=== PATIENT | male | born 1950 | race Caucasian/White ===

== ENCOUNTER 2020-03-14 16:54 | Outpatient (REF) | payer MEDICARE, SELFPAY | END 2020-03-14 16:55 | disposition home or self-care (01) | LOC: HO.LNP 16:54 | PROVIDERS: Visit Provider Hospitalist | DX: Z20.828 Contact with and (suspected) exposure to other viral communicable diseases (principal) | CPT/HCPCS: 87635 ==

== ENCOUNTER 2020-03-22 07:38 | Outpatient (REF) | payer MEDICARE, SELFPAY ==
[2020-03-22 07:57] LABS: Basophils Percent Auto 0.2 % (0-2); Eosinophils Absolute Auto 0.1 X10*3/uL (0.0-0.4); Eosinophils Percent Auto 1.9 % (0-4); Hematocrit 39.7 % (42-52); Imm Gran Abs Auto 0.02 X10*3/uL (0.00-0.03); Imm Gran Pct Auto 0.4 % (0.0-0.4); Lymphocytes Absolute Auto 0.6 X10*3/uL (1.2-4.9); Lymphocytes Percent Auto 11.8 % (20-40); MANUAL DIFF FLAG SCAN; Mean Corpuscular HGB Conc 32.7 g/dl (31.0-36.0); Mean Corpuscular Hemoglobin 30.3 pg (27.0-33.0); Mean Corpuscular Volume 92.5 fL (80-98); Mean Platelet Volume 9.2 fL (9.4-12.4); Monocytes Absolute Auto 0.8 X10*3/uL (0.1-1.2); Monocytes Percent Auto 15.1 % (2-11); Neutrophils Absolute Auto 3.6 X10*3/uL (2.0-8.3); Neutrophils Percent Auto 70.6 % (45-73); Platelet Count 167 X10*3/uL (160-400); Red Blood Count 4.29 X10*6/uL (4.60-5.80); Red Cell Distribution Width 12.1 % (11.0-16.0); SCAN SMEAR FLAG 1; White Blood Count 5.2 X10*3/uL (4.8-10.8)
--- NOTE | 2020-03-22 08:01 | MR_ITS ---
EXAMINATION: MR BRAIN WITHOUT AND WITH CONTRAST CLINICAL INFORMATION: Follow-up pituitary macroadenoma. COMPARISON: MRI brain 02/05/2019 and 02/12/2018. TECHNIQUE: Multiplanar, multisequence MRI of the brain was obtained before and after the intravenous administration of 4 mL Gadavist. FINDINGS: Normal. Again visualized is a nonenhancing hypoenhancing lesion in right sella measuring 1.3 cm wide, 1.4 cm in AP and 1 cm in height, consistent with macroadenoma. There is no extension of this into the suprasellar cistern. However, it abuts the right cavernous sinus and in close approximation to the intrasinus carotid artery. The pituitary stalk is minimally shifted to the left on the coronal view. There is no mass effect on the optic chiasm or the optic nerve. There is no restricted diffusion seen to suspect an acute ischemia. Scattered T2 signal changes are seen within the deep white matter of both cerebral hemispheres, similar to previous study, without enhancement or mass effect. There is no midline shift. The lateral ventricles are symmetrical in size and configuration without enlargement. There is no suggestion of hemorrhage on gradient echo acquisition sequence. Normal flow void signal is seen in major cerebral vasculature. The posterior fossa structures are unremarkable and unchanged to previous study. The craniovertebral axis and the cerebral hemispheres are normal. The bone marrow signal of the calvarium is unremarkable. The soft tissues are normal. The paranasal sinuses are well expanded and are clear. Minimal T2 signal seen in bilateral mastoid sinuses. Incidental finding of a Tornwaldt cyst is noted along the roof of the nasopharynx. Also visualized is a small 1.0 x 0.5 cm T2 lesion within the lateral pharyngeal recess/fossa of Rosenmuller. 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 No encroachment on the optic chiasm nor the optic nerve. Minimal pituitary stalk shift seen to the left side on the coronal image. Small Tornwaldt cyst is stable since 02/12/2018 and 02/05/2019. 1 cm lesion in the left nasopharyngeal lateral recess is stable since 02/12/2018 and 02/05/2019 MRI brain.
[2020-03-22 08:19] LABS: Iron 121 mcg/dL (45-160); Percent Iron Saturation 35 % (15-50); Total Iron Binding Capacity 347 mcg/dL (228-428); Unsaturated Iron Binding 226 ug/dL
[2020-03-22 08:21] LABS: SLIDE REVIEW VERIFIED
[2020-03-22 08:39] LABS: Blood Urea Nitrogen 16 mg/dL (9-16); Estimated Glomerular Filt Rate > 60
[2020-03-22 08:42] LABS: Ferritin 80 ng/mL (20-250)
== END 2020-03-22 07:39 | disposition home or self-care (01) ==
LOC: HO.MRI 07:38
PROVIDERS: Internal Medicine; PCP Nurse Practitioner Family; Visit Provider Internal Medicine Endocrinology, Diabetes & Metabolism
DX: D35.2 Benign neoplasm of pituitary gland (principal)
CPT/HCPCS: 36415; 70553; 82565; 82728; 83540; 84520; 85025; A9585

== ENCOUNTER 2020-03-29 10:24 | Outpatient (REF) | payer MEDICARE, SELFPAY | END 2020-03-29 10:25 | disposition home or self-care (01) | LOC: HO.LAB 10:24 | PROVIDERS: Visit Provider Nurse Practitioner Family | DX: Z20.828 Contact with and (suspected) exposure to other viral communicable diseases (principal) | CPT/HCPCS: U0003 ==

== ENCOUNTER 2020-03-30 07:55 | Outpatient (REF) | payer MEDICARE, SELFPAY ==
[2020-03-31 07:42] LABS: Prolactin 5.8 ng/mL (2.0-18.0)
== END 2020-03-30 07:56 | disposition home or self-care (01) ==
LOC: CF 07:55
PROVIDERS: Absent Provider Nurse Practitioner Family; PCP Nurse Practitioner Family; Visit Provider Internal Medicine Endocrinology, Diabetes & Metabolism
DX: D35.2 Benign neoplasm of pituitary gland (principal); M85.80 Other specified disorders of bone density and structure, unspecified site
CPT/HCPCS: 84146; 99212

== ENCOUNTER 2020-06-18 10:11 | Outpatient (REF) | payer MEDICARE, SELFPAY ==
[2020-06-18 10:28] LABS: MANUAL DIFF FLAG NO
[2020-06-18 10:30] LABS: Basophils Percent Auto 0.4 % (0-2); Eosinophils Absolute Auto 0.2 X10*3/uL (0.0-0.4); Eosinophils Percent Auto 3.2 % (0-4); Hematocrit 42.2 % (42-52); Hemoglobin 13.9 g/dl (14.0-18.0); Imm Gran Abs Auto 0.02 X10*3/uL (0.00-0.03); Imm Gran Pct Auto 0.4 % (0.0-0.4); Lymphocytes Absolute Auto 1.4 X10*3/uL (1.2-4.9); Lymphocytes Percent Auto 24.5 % (20-40); Mean Corpuscular HGB Conc 32.9 g/dl (31.0-36.0); Mean Corpuscular Hemoglobin 30.5 pg (27.0-33.0); Mean Corpuscular Volume 92.5 fL (80-98); Mean Platelet Volume 9.6 fL (9.4-12.4); Monocytes Absolute Auto 0.5 X10*3/uL (0.1-1.2); Monocytes Percent Auto 8.1 % (2-11); Neutrophils Absolute Auto 3.6 X10*3/uL (2.0-8.3); Neutrophils Percent Auto 63.4 % (45-73); Platelet Count 205 X10*3/uL (160-400); Red Blood Count 4.56 X10*6/uL (4.60-5.80); Red Cell Distribution Width 11.8 % (11.0-16.0); White Blood Count 5.6 X10*3/uL (4.8-10.8)
[2020-06-18 10:48] LABS: Prothrombin Time 11.8 SEC (10.8-13.0)
[2020-06-18 10:53] LABS: Alanine Aminotransferase 14 U/L (0-40); Albumin Level 4.7 g/dL (3.5-5.0); Alkaline Phosphatase 40 U/L (39-117); Anion Gap 14 (12-20); Aspartate Amino Transferase 18 U/L (5-37); Bilirubin Total 1.6 mg/dL (0.0-1.0); Blood Urea Nitrogen 18 mg/dL (9-16); Calcium 9.1 mg/dL (8.4-10.2); Carbon Dioxide 28 mmol/L (22-29); Chloride 104 mmol/L (96-108); Estimated Glomerular Filt Rate > 60; Glucose Fasting 99 mg/dL (60-99); Potassium 4.7 mmol/L (3.3-5.1); Sodium 141 mmol/L (135-145); Total Protein 7.1 g/dL (6.5-8.0)
== END 2020-06-18 10:12 | disposition home or self-care (01) ==
LOC: HO.LAB 10:11
PROVIDERS: Visit Provider Nurse Practitioner Family
DX: Z01.818 Encounter for other preprocedural examination (principal)
CPT/HCPCS: 36415; 80053; 85025; 85610

== ENCOUNTER 2020-06-22 13:13 | Outpatient (REF) | payer MEDICARE, SELFPAY ==
[2020-06-22 14:53] LABS: Bilirubin Direct 0.4 mg/dL (0.0-0.5); Bilirubin Total 1.4 mg/dL (0.0-1.0)
== END 2020-06-22 13:14 | disposition home or self-care (01) ==
LOC: HO.HMGCLDS 13:13
PROVIDERS: PCP Nurse Practitioner Family; Visit Provider Nurse Practitioner Family
DX: R17 Unspecified jaundice (principal)
CPT/HCPCS: 36415; 82247; 82248

== ENCOUNTER 2020-06-28 12:57 | Outpatient (REF) | payer MEDICARE, SELFPAY ==
--- NOTE | ~2020-06-28 | US_ITS ---
EXAMINATION: US ABDOMEN COMPLETE CLINICAL INFORMATION: Unspecified jaundice. COMPARISON: Ultrasound abdomen complete dated 09/25/2016. CT abdomen and pelvis with and without contrast dated 09/07/2014. TECHNIQUE: Real-time imaging of the abdominal viscera. FINDINGS: PANCREAS: Not well visualized due to bowel gas ABDOMINAL AORTA: The proximal, mid, and distal segments are normal in caliber. INFERIOR VENA CAVA: Visualized portions are normal. LIVER: Liver echotexture is slightly increased and heterogeneous. There are multiple hypoechoic areas seen throughout the liver. Some are seen in areas typical of focal fatty sparing such as adjacent to the gallbladder and the periportal region. Other areas are atypical for fatty sparing and focal liver lesion should be excluded. Largest area measures approximately 11 mm in the right lobe for example image 53. There is no intrahepatic biliary duct dilatation. The liver is normal in size and contour. GALLBLADDER: Normal. The gallbladder is physiologically distended without evidence of stones, sludge, polyps, wall thickening or pericholecystic fluid. COMMON BILE DUCT: Normal in caliber measuring 0.40 cm in diameter. RIGHT KIDNEY: There are several echogenic foci with twinkle artifact suggestive of small stones measuring 3 to 4 mm. No hydronephrosis or focal parenchymal lesions. The kidney measures 11.0 cm in maximum dimension. LEFT KIDNEY: Normal. No hydronephrosis. No renal calculi or focal parenchymal lesions. The kidney measures 11.1 cm in maximum dimension. SPLEEN: Normal. The spleen measures 12.2 cm in maximum dimension. FREE FLUID: None. US/US abdomen complete IMPRESSION: Slightly echogenic heterogeneous appearing liver. There are multiple small hypoechoic areas questionable for areas of focal fatty sparing versus liver lesions. Follow-up liver MRI with and without contrast recommended. Probable right renal stones. Nonvisualization of the pancreas.
== END 2020-06-28 12:58 | disposition home or self-care (01) ==
LOC: HO.HMGCX 12:57
PROVIDERS: PCP Nurse Practitioner Family; Visit Provider Nurse Practitioner Family
DX: R17 Unspecified jaundice (principal)
CPT/HCPCS: 76700

== ENCOUNTER 2020-07-07 13:14 | Outpatient (REF) | payer MEDICARE, SELFPAY ==
--- NOTE | ~2020-07-07 | MR_ITS ---
EXAMINATION: MR ABDOMEN WITHOUT AND WITH CONTRAST CLINICAL INFORMATION: Liver disease COMPARISON: Previous abdominal ultrasound most recent June [address] of the abdomen and pelvis August 2014 TECHNIQUE: MR abdomen was performed without and with use of 9 mL intravenous Gadavist gadolinium contrast. Postcontrast images are performed in multiphase dynamic sequences. Imaging was performed in 3 planes. FINDINGS: LUNG BASES: The visualized lung bases are unremarkable. LIVER, GALLBLADDER, AND BILIARY TREE: The liver is normal in size, shape and contour. There is mild fatty infiltration of the liver. There are numerous small areas of early arterial phase enhancement seen. The largest area measures 5 x 7 mm high in the right lobe axial image 32 series 100 post contrast. These are seen on early arterial phase sequences only. These are not seen on later sequences post contrast and are not identified on precontrast sequences. Probable represent transient perfusion effects. No other focal liver lesion is seen. The gallbladder is normal-appearing. There are no gallstones. There is no intra or extrahepatic biliary duct dilatation. PANCREAS: Unremarkable. SPLEEN: Normal. ADRENAL GLANDS: Normal. KIDNEYS AND URETERS: The kidneys are normal in size, shape, and enhance symmetrically. There are small bilateral bright on T2-weighted sequence this lesions in the lower pole of the kidneys probably representing a small cyst. No hydronephrosis. No perinephric stranding. GASTROINTESTINAL TRACT: No bowel obstruction. No ascites or fluid collection. ABDOMINAL WALL: No significant hernia is appreciated. LYMPH NODES: No lymphadenopathy. VASCULAR: Unremarkable. OSSEOUS STRUCTURES: There is degenerative disc signal at L2-L3. Marrow signal otherwise normal. There is scoliosis and degenerative change of the spine. MR/MR abdomen wo/w con IMPRESSION: Mild fatty infiltration of the liver. Numerous small areas of early arterial phase enhancement not appreciated on later phases post contrast or on precontrast sequences suggestive of transient perfusion effects. No liver mass seen.
== END 2020-07-07 13:15 | disposition home or self-care (01) ==
LOC: HO.MRI 13:14
PROVIDERS: Visit Provider Nurse Practitioner Family
DX: K76.9 Liver disease, unspecified (principal)
CPT/HCPCS: 74183; A9585

== ENCOUNTER 2020-08-19 10:11 | Outpatient (REF) | payer MEDICARE, SELFPAY ==
--- NOTE | ~2020-08-19 | XR_ITS ---
EXAMINATION: XR KNEE, RIGHT CLINICAL INFORMATION: Right knee pain. COMPARISON: None TECHNIQUE: Four views of the right knee. FINDINGS: No significant tricompartmental degenerative joint changes are seen. There is no acute fracture or dislocation. There is a trace joint effusion. Mild prepatellar soft tissue swelling is seen. XR/XR knee RT 4V IMPRESSION: No significant tricompartmental degenerative joint changes. Trace suprapatellar joint effusion and mild prepatellar soft tissue swelling. Correlate with physical exam.
== END 2020-08-19 10:12 | disposition home or self-care (01) ==
LOC: HO.HMGCX 10:11
PROVIDERS: PCP Nurse Practitioner Family; Visit Provider Hospitalist
DX: M25.561 Pain in right knee (principal)
CPT/HCPCS: 73564

== ENCOUNTER → 2020-09-02 10:47 | Outpatient (BNVA) | payer MEDICARE, SELFPAY | PROVIDERS: PCP Nurse Practitioner Family; Visit Provider Orthopaedic Surgery | DX: S83.241A Other tear of medial meniscus, current injury, right knee, initial encounter (principal) | CPT/HCPCS: 99202 ==

== ENCOUNTER 2020-09-08 10:15 | Outpatient (REF) | payer MEDICARE, SELFPAY ==
--- NOTE | ~2020-09-08 | MR_ITS ---
EXAMINATION: MR KNEE WITHOUT CONTRAST, RIGHT CLINICAL INFORMATION: Right knee pain COMPARISON: Radiographs 08/19/2020 TECHNIQUE: MRI of the knee without contrast was performed using routine sequences on a high-field scanner. FINDINGS: MENISCI: Medial Meniscus: There is an inner margin radial tear which is near full-thickness at the junction of the posterior horn and body. A portion of the meniscal body periphery is displaced into the meniscotibial recess on coronal images 20-21. Lateral Meniscus: Intact LIGAMENTS: Cruciate: Intact Collateral: Intact EXTENSOR MECHANISM: Intact. Pretibial bursitis. Adjacent soft tissue edema. ARTICULAR CARTILAGE/BONE: Patellofemoral Compartment: Normal Medial Compartment: Mild cartilage thinning of the peripheral weightbearing aspect. Lateral Compartment: Normal JOINT FLUID AND BURSAE: Small joint effusion. There is a small amount of free fluid tracking along the popliteus muscle. A small ganglion projects into the deep medial gastrocnemius muscle. MR/MR knee RT wo con IMPRESSION: Inner margin radial tear of the medial meniscus at the junction of the body and posterior horn. Prepatellar bursitis. Minimal medial compartment osteoarthritis with a small joint effusion.
== END 2020-09-08 10:16 | disposition home or self-care (01) ==
LOC: HO.MRI 10:15
PROVIDERS: Visit Provider Orthopaedic Surgery
DX: S83.241A Other tear of medial meniscus, current injury, right knee, initial encounter (principal)
CPT/HCPCS: 73721

== ENCOUNTER → 2020-09-20 08:23 | Outpatient (BNVA) | payer MEDICARE, SELFPAY | PROVIDERS: PCP Nurse Practitioner Family; Visit Provider Orthopaedic Surgery | DX: S83.241A Other tear of medial meniscus, current injury, right knee, initial encounter (principal) | CPT/HCPCS: 99212 ==

== ENCOUNTER 2020-09-29 05:57 | Day surgery (SDC) | payer MEDICARE, SELFPAY ==
--- NOTE | 2020-09-27 10:20 | P.CONAN_ITS ---
HPI - Anesthesia Eval Consult details Narrative: 69yo M for Right Knee Arthroscopy PMFSH Active Problems Active Problems: All Active Problems (Updated 09/02/20 @ 11:35 by Zachary Marroquin MD) Tear of medial meniscus of right knee (Acute) Right knee pain (Acute) Liver lesion (Acute) Elevated bilirubin (Acute) Pre-op evaluation (Acute) Osteopenia (Acute) Macroprolactinoma (Acute) Nasal congestion (Acute) Encounter for screening laboratory testing for COVID-19 virus (Acute) Iron deficiency anemia (Acute) Prolactinoma (Acute) Past Medical History Medical History History of pituitary tumor Iron deficiency anemia Macroprolactinoma Osteopenia Prolactinoma Family History Family History Father Cancer Mother Diabetes Surgical History Surgical History Hx of blepharoplasty Hx of cataract extraction Hx of eye surgery Hx of tonsillectomy Social History Social History Smoking Status: Never smoker Use of substances other than those prescribed or required for medical reasons: No Are you DNR?: No Advance Directives: No Advance Directives Information Provided: Yes Current occupational status: employed and retired 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 - [employer] Meds Allergies Allergy/AdvReac Type Severity Reaction Status Date / Time aspirin [ASPIRIN] Allergy Unknown HIVES,HEARTBURN, Verified 09/29/20 06:04 hives, hives meperidine [Demerol] Allergy Unknown GI upset Verified 09/29/20 06:04 Home Medications Medication Instructions Recorded Confirmed Last Taken Type ferrous sulfate 324 mg (65 mg 324 mg PO BID 03/14/20 08/19/20 Unknown History iron) tablet,delayed release Exam Exam Date and Time: September 27, 2020 1020 Pertinent Lab Results Pertinent Lab Results: Laboratory Tests 06/18/20 06/18/20 10:20 10:20 WBC 5.6 Hgb 13.9 L Hct 42.2 Plt Count 205 Sodium 141 Potassium 4.7 Chloride 104 Carbon Dioxide 28 BUN 18 H Creatinine 1.04 Narrative Narrative: EKG 05/2020 NSR@68 Assessment and Plan Assessment Anesthesia Assessment: Chart Reviewed
[2020-09-29] VITALS (7 sets, daily range): BP systolic 134–161; BP diastolic 69–95; PULSE 51–59; RESP 10–16; TEMP 36.3–36.5; O2SAT 97–99; BMI 27.1
[2020-09-29] MEDS: Lactated Ringers 1,000 ML 100 ML IVCONT (06:25)
--- NOTE | 2020-09-29 06:55 | PC.NURSE ---
PT WITH SCABBING OVER AREA ON RIGHT KNEE. MD MADE AWARE AND OK TO PROCEED WITH ABX BEING ADDED PREOP.
--- NOTE | 2020-09-29 07:10 | P.CONAN_ITS ---
[facility] Active Problems Active Problems: All Active Problems (Updated 09/29/20 @ 06:04 by Maria L wells, RN) Encounter for screening laboratory testing for COVID-19 virus (Acute) Nasal congestion (Acute) Pre-op evaluation (Acute) Elevated bilirubin (Acute) Liver lesion (Acute) Right knee pain (Acute) Tear of medial meniscus of right knee (Acute) Osteopenia (Acute) Macroprolactinoma (Acute) Prolactinoma (Acute) Past Medical History Medical History History of pituitary tumor Iron deficiency anemia Macroprolactinoma Osteopenia Prolactinoma Family History Family History Father Cancer Mother Diabetes Surgical History Surgical History Hx of blepharoplasty Hx of cataract extraction Hx of eye surgery Hx of tonsillectomy Social History Social History Smoking Status: Never smoker Use of substances other than those prescribed or required for medical reasons: No Are you DNR?: No Advance Directives: No Advance Directives Information Provided: Yes Current occupational status: employed and retired 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 - [employer] Meds Allergies Allergy/AdvReac Type Severity Reaction Status Date / Time aspirin [ASPIRIN] Allergy Unknown HIVES,HEARTBURN, Verified 09/29/20 06:04 hives, hives meperidine [Demerol] Allergy Unknown GI upset Verified 09/29/20 06:04 Active Medications: Current Medications Generic Name Dose Route Start Last Admin Trade Name Freq PRN Reason Stop Dose Admin Lactated Ringer's 1,000 mls @ 100 mls/hr 09/29/20 06:00 09/29/20 06:25 Lr IVCONT 100 mls/hr .Q10H JEAN CLAUDE Administration Home Medications Medication Instructions Recorded Confirmed Last Taken Type ferrous sulfate 324 mg (65 mg 324 mg PO BID 03/14/20 08/19/20 Unknown History iron) tablet,delayed release Exam Exam Date and Time: September 29, 2020 0710 Height,Weight and Vital Signs: Height 5 ft 11 in Weight 88.451 kg Last Vital Signs Temp 97.7 F 09/29/20 06:13 Pulse 51 09/29/20 06:13 Resp 16 09/29/20 06:13 BP 134/69 09/29/20 06:13 Pulse Ox 98 09/29/20 06:13 Airway Mallampati Class: II TM Dist: >3cm Neck ROM: Full Heart: RRR Lungs: CTA
--- NOTE | 2020-09-29 07:56 | MHC.SHP ---
Pre-Procedural Eval Section A The patient is an INPATIENT: No Changes since office visit: No Cold of Flu in the past 2 weeks, No New Medical Problems, No Changes in Medication and No Patient answered all questions The History & Physical has been completed within 30 days and I have reviewed it.: Yes Section B Chief Complaint: tear medial meniscus Allergies: Allergies Allergy/AdvReac Type Severity Reaction Status Date / Time aspirin [ASPIRIN] Allergy Unknown HIVES,HEARTBURN, Verified 09/29/20 06:04 hives, hives meperidine [Demerol] Allergy Unknown GI upset Verified 09/29/20 06:04 Plan I have reviewed the history and physical and performed a pertinent physical examination on my patient. No changes have occurred unless specified.
--- NOTE | 2020-09-29 07:57 | MHC.SHP ---
Pre-Procedural Eval Section A The patient is an INPATIENT: No The History & Physical has been completed within 30 days and I have reviewed it.: Yes Section B Chief Complaint: tear medial meniscus Allergies: Allergies Allergy/AdvReac Type Severity Reaction Status Date / Time aspirin [ASPIRIN] Allergy Unknown HIVES,HEARTBURN, Verified 09/29/20 06:04 hives, hives meperidine [Demerol] Allergy Unknown GI upset Verified 09/29/20 06:04 Plan I have reviewed the history and physical and performed a pertinent physical examination on my patient. No changes have occurred unless specified.
[2020-09-29] MEDS: oxyCODONE HCl Immed Release 5 MG TABLET 10 MG PO (09:15)
[2020-09-29] MEDS: Acetaminophen 325 MG TABLET 650 MG PO (09:15)
--- NOTE | 2020-09-29 12:39 | W.PM.OPN ---
Operative Note Operative Note Date of Service: 09/29/20 Narrative: ARTHROSCOPIC SURGERY NOTE SURGEON: Dr Zachary Orourke) [employer]: Edith CURRAN PREOP DIAGNOSIS: Medial meniscal tear right knee POSTOP DIAGNOSIS: Same with chondral injury patella right OPERATIVE PROCEDURE: Arthroscopic partial medial meniscectomy. Debridement patella right knee CLINICAL NOTE: This gentleman had ongoing problems pain discomfort involving his knee he had failed management therefore after explaining risks benefits and alternatives and answering all his questions it was mutually agreed upon to carry out following procedure MOTION: Full range of motion STABILITY: Cruciate and collateral ligaments intact OPERATIVE DETAILS PREPARATION: GA, STANDARD TECHNIQUE, tourniquet E to 300 mm of mercury for 20 minutes SURGICAL TIME-OUT: Patient identified; procedure confirmed; site confirmed. Medical and allergy history reviewed. No preoperative antibiotics. No DVT prophylaxis. All other items discussed and agreed upon. INCISIONS: Superolateral, inferolateral, inferomedial stab incisions SYNOVIUM: Normal SYNOVIAL FLUID: Clear MEDIAL COMPARTMENT: There was a radial tear of the posterior horn. This resected using a combination of handheld cutters and power shaver to stable meniscus that was contoured. The tibial and femoral articular surfaces were intact. INTERCONDYLAR NOTCH: ACL visualized palpated intact. PCL palpated intact LATERAL COMPARTMENT: The lateral meniscus, tibial and femoral articular surfaces, and popliteus tendon were all stable and intact ANTERIOR COMPARTMENT: . Medial and lateral gutters clear. Suprapatellar pouch clear. The patella had grade 3 injury through the midzone. This was debrided of loose articular cartilage. The femoral sulcus was intact. CLOSURE: 30 cc of 0.25% Marcaine with epinephrine injected in the knee. Steri-Strips and sterile dressing then applied. RECOMMENDATIONS: 1)Restore motion strength 2)Resume activities as tolerated 3)Discharge today with prescription for analgesic 4)Follow up in the office in 10-14 days
== END 2020-09-29 10:07 | disposition home or self-care (01) ==
PROVIDERS: PCP Nurse Practitioner Family; Visit Provider Orthopaedic Surgery
PROC: (CPT 29870; principal; 2020-09-29 07:30)
DX: S83.241A Other tear of medial meniscus, current injury, right knee, initial encounter (principal); M23.41 Loose body in knee, right knee; X58.XXXA Exposure to other specified factors, initial encounter; Y93.9 Activity, unspecified; Y92.9 Unspecified place or not applicable; Y99.8 Other external cause status; D50.9 Iron deficiency anemia, unspecified; M85.80 Other specified disorders of bone density and structure, unspecified site; Z79.899 Other long term (current) drug therapy; Z88.8 Allergy status to other drugs, medicaments and biological substances
CPT/HCPCS: 29881; J0171; J0690; J2250; J2405; J3010

== ENCOUNTER → 2020-10-11 08:50 | Outpatient (BNVA) | payer MEDICARE, SELFPAY | PROVIDERS: PCP Nurse Practitioner Family; Visit Provider Physician Assistant | DX: S83.241D Other tear of medial meniscus, current injury, right knee, subsequent encounter (principal) | CPT/HCPCS: 99212 ==

== ENCOUNTER 2020-11-07 08:59 | Outpatient (REF) | payer MEDICARE, SELFPAY ==
[2020-11-08 07:37] LABS: Prolactin 8.3 ng/mL (2.0-18.0)
== END 2020-11-07 09:00 | disposition home or self-care (01) ==
LOC: HO.HMGCLDS 08:59
PROVIDERS: PCP Nurse Practitioner Family; Visit Provider Internal Medicine Endocrinology, Diabetes & Metabolism
DX: D35.2 Benign neoplasm of pituitary gland (principal)
CPT/HCPCS: 36415; 84146

== ENCOUNTER → 2020-11-09 08:18 | Outpatient (BNVA) | payer MEDICARE, SELFPAY | PROVIDERS: PCP Nurse Practitioner Family; Visit Provider Internal Medicine Endocrinology, Diabetes & Metabolism | DX: D35.2 Benign neoplasm of pituitary gland (principal); M85.80 Other specified disorders of bone density and structure, unspecified site | CPT/HCPCS: 99212 ==

== ENCOUNTER 2020-12-19 17:09 | Outpatient (REF) | payer MEDICARE, SELFPAY | END 2020-12-19 17:10 | disposition home or self-care (01) | LOC: HO.LNP 17:09 | PROVIDERS: Visit Provider Hospitalist | DX: R31.9 Hematuria, unspecified (principal) | CPT/HCPCS: 87086 ==

== ENCOUNTER 2021-01-24 06:57 | Outpatient (REF) | payer MEDICARE, SELFPAY ==
--- NOTE | ~2021-01-24 | CT_ITS ---
EXAMINATION: CT ABDOMEN AND PELVIS WITHOUT AND WITH CONTRAST CLINICAL INFORMATION: Hematuria. COMPARISON: None. TECHNIQUE: Noncontrast CT of the abdomen and pelvis is performed followed by split bolus contrast-enhanced images using 85 mL Omnipaque 350 contrast.? Postcontrast imaging is performed during the combined nephrogram and excretion phase. Sagittal and coronal reformatted images were obtained on the technologist's workstation for both the precontrast and postcontrast phases. This CT examination was performed using dose optimization techniques as appropriate, variously including the following: *Automated exposure control *Adjustment of mA and/or kV according to patient size (this includes techniques or standardized protocols for targeted exams where dose is matched to indication/reason for exam; i.e. extremities or head) *Use of iterative reconstruction technique DLP: 787 mGy-cm. FINDINGS: LUNG BASES: The lung bases are clear. The heart size is normal. LIVER, GALLBLADDER, AND BILIARY TREE: The liver is normal in size, shape, and attenuation. No focal hepatic lesion or biliary ductal dilatation is present. The gallbladder is unremarkable with no evidence of radiopaque gallstones, gallbladder wall thickening, or obvious pericholecystic inflammatory changes. PANCREAS: Unremarkable. SPLEEN: Unremarkable. ADRENAL GLANDS: Unremarkable. KIDNEYS AND URETERS: On precontrast exam there is no radiopaque renal calculi post contrast. Both kidneys nephrograms are symmetrical, normal size and contour. There is symmetrical bilateral nephrograms with normal cortical thickening. Left kidney measures 11.7 cm in length and right kidney measures 10.9 cm in length. There is good opacification of bilateral kidney pelvis and ureters without any intraluminal filling defect. BLADDER: The bladder is incompletely distended with excreted urinary contrast. No bladder wall thickening or enhancing mass seen. GASTROINTESTINAL TRACT: There is scattered stool and gas seen throughout the colon without significant distention. The small bowel loops are normal caliber. The stomach is nondistended. No free air or free fluid seen. ABDOMINAL WALL: No significant hernia is appreciated. LYMPH NODES: Normal. VASCULAR: Unremarkable. PELVIC VISCERA: There is no free air or free fluid. The prostate gland is mildly enlarged with central gland calcification. OSSEUS STRUCTURES: There is levoscoliosis with degenerative disc changes at virtually every disc level and moderate spondylosis right L2-L3, left L4-L5 and L5/S1 disc levels. No lytic or sclerotic process seen. CT/CT urogram IMPRESSION: No radiopaque urolith or hydroureteronephrosis. No renal mass or cyst seen. No evidence of hydronephrosis. The bladder is decompressed but unremarkable. Degenerative disc changes with levoscoliosis dorsolumbar spine and moderate spondylosis.
[2021-01-24 08:37] LABS: Alanine Aminotransferase 15 U/L (0-40); Albumin Level 4.4 g/dL (3.5-5.0); Alkaline Phosphatase 49 U/L (39-117); Anion Gap 11 (12-20); Aspartate Amino Transferase 21 U/L (5-37); Bilirubin Total 1.2 mg/dL (0.0-1.0); Blood Urea Nitrogen 14 mg/dL (9-16); Calcium 9.4 mg/dL (8.4-10.2); Carbon Dioxide 27 mmol/L (22-29); Chloride 109 mmol/L (96-108); Estimated Glomerular Filt Rate > 60; Glucose Random 103 mg/dL (60-115); Potassium 4.7 mmol/L (3.3-5.1); Sodium 142 mmol/L (135-145); Total Protein 6.7 g/dL (6.5-8.0)
[2021-01-24] MEDS: iohexoL 350 MG/ML 100 ML INFUS..BTL IV (12:03)
== END 2021-01-24 06:58 | disposition home or self-care (01) ==
LOC: HO.CT 06:57
PROVIDERS: Absent Provider Nurse Practitioner Family; PCP Nurse Practitioner Family; Visit Provider Hospitalist
DX: R31.9 Hematuria, unspecified (principal)
CPT/HCPCS: 36415; 74178; 80053; Q9967

== ENCOUNTER 2021-02-20 09:15 | Outpatient (REF) | payer MEDICARE, SELFPAY ==
--- NOTE | ~2021-02-20 | XR_ITS ---
EXAMINATION: XR HIP, LEFT CLINICAL INFORMATION: Left hip pain. COMPARISON: CT urogram dated 01/24/2021. TECHNIQUE: 2 views of the left hip. FINDINGS: No acute fracture or dislocation. Tiny acetabular marginal osteophytes. No osseous erosion. Phleboliths within the pelvis. XR/XR hip LT min 2V IMPRESSION: Minimal left hip osteophyte arthritis, unchanged.
== END 2021-02-20 09:16 | disposition home or self-care (01) ==
LOC: HO.HMGCX 09:15
PROVIDERS: PCP Nurse Practitioner Family; Visit Provider Nurse Practitioner Family
DX: M25.552 Pain in left hip (principal)
CPT/HCPCS: 73502

== ENCOUNTER 2021-03-29 07:26 | Outpatient (REF) | payer MEDICARE, SELFPAY ==
--- NOTE | ~2021-03-29 | MR_ITS ---
EXAMINATION: MR LUMBAR SPINE WITHOUT CONTRAST CLINICAL INFORMATION: 70-year-old with low back pain and complaints of left leg weakness. COMPARISON: None TECHNIQUE: MRI of the lumbar spine was obtained using routine sequences without contrast. FINDINGS: Coronal Alignment: There is moderate upper lumbar levocurvature, centered at L2-L3. There is trace pqrej-vq-tqcj lateral listhesis at L3-L4. Sagittal Alignment: There is slight retrolisthesis at L1-L2 and L2-L3. Lumbosacral Junction: Normal. Vertebral Bodies: Normal height. Disc Spaces and Endplates: Fbplcmrj-wk-qmtrkb disc space height loss, Schmorl's nodes, disc desiccation, and mild spondylosis at L5-S1. Qulnbcda-ta-qndhdi disc space height loss asymmetric to the left at L4-L5 with disc desiccation and Schmorl's nodes with moderate spondylosis. Mild disc space height loss and disc desiccation at L3-L4. Uglgvxkz-to-jxovma disc space height loss asymmetric to the right at L2-L3 with Schmorl's node formation and intradiscal degenerative signal changes with moderate spondylosis. Eypi-qf-bvqmrgnb disc space height loss, Schmorl's nodes, disc desiccation, and moderate spondylosis at L1-L2. Spinal Canal: No abnormal developmental findings. Bone Marrow: Type I and type II degenerative bone marrow signal changes seen along the endplates at L2-L3 and, to a lesser degree, at L1-L2, with predominately type II degenerative bone marrow signal changes along the endplates at L4-L5 and L5-S1 with minimal type I signal changes, as well. Conus Medullaris: Terminates at L1-L2. Morphology and signal is normal. Intradural Nerve Roots: Within normal limits. L5-S1: Prominent left paravertebral spondylosis noted with mild disc bulging and a tiny central annular fissure. Minor facet hypertrophic changes are noted. No significant spinal canal stenosis. There is ltyu-yd-mxmemdqy bilateral neural foraminal stenosis. Disc-osteophyte complex abuts the extraforaminal L5 nerve roots bilaterally. L4-L5: Mild disc bulging is noted with a left-sided paravertebral/posterolateral disc-osteophyte complex, with iaes-nv-cqhyywtc facet arthropathy, left more than right, without significant spinal canal stenosis. There is moderate left-sided neural foraminal stenosis without definite neural impingement. L3-L4: Posterolateral disc-osteophyte complex is noted with a superimposed right-sided foraminal/extraforaminal disc protrusion, which abuts the exiting right L3 nerve root. Slight flattening of the dural sac is noted with kylv-cf-zznnfklk bilateral facet arthrosis, left more than right, with mild left-sided subarticular recess stenosis without significant central spinal canal stenosis. Twei-mw-cuiwwvpw right-sided neural foraminal stenosis is noted. L2-L3: Disc bulging is noted with superimposed left-sided foraminal/extraforaminal disc protrusion and a superimposed right posterolateral disc-osteophyte complex with aphb-oy-expxgtzn facet arthrosis, right more than left. Mild flattening of the dural sac is noted, with mqdb-aw-xhycdfnu narrowing of the right subarticular recess without significant central spinal canal stenosis. There is moderate right-sided neural foraminal stenosis without definite neural impingement. There is suspicion for a small cephalad migrated extrusion in a right paramedian location, with mild flattening of the dural sac on the right just above the level of the intervertebral disc space. L1-L2: There is posterolateral disc-osteophyte complex asymmetric to the left, with ueli-dz-qwfydgti flattening of the dural sac and mild right-sided facet arthropathy without significant canal or neural foraminal stenosis. Superimposed small left central extrusion with mild cephalad migration. T12-L1: Jdyo-bl-cxzatbvk facet arthropathy noted with a tiny central disc protrusion without significant canal or neural foraminal stenosis. T11-T12: Left subarticular to foraminal disc protrusion noted, with flattening of the left side of the dural sac and mild facet arthropathy on the left with moderate left-sided neural foraminal stenosis. Paraspinal/Retroperitoneal: There is posterior paraspinal muscle atrophy in the lower lumbar region. MR/MR lumbar spine wo con IMPRESSION: 1. Upper lumbar levocurvature, with slight retrolisthesis at L1-L2 and L2-L3 and trace aewse-qj-vvdz lateral listhesis at L3-L4. 2. Multilevel DDD and spondylosis, with multilevel disc bulging, posterolateral disc-osteophyte complexes and facet arthropathy throughout the lumbar spine without significant central spinal canal stenosis. 2. Right paramedian cephalad extruded disc fragment suspected at L2-L3 without neural impingement, small central to left paramedian extruded disc herniation with mild cephalad migration at L1-L2 and a left subarticular to foraminal disc protrusion at T11-T12. Right subarticular recess stenosis at L2-L3. 3. Multilevel predominately aplm-ht-lqgtseiw degrees of neural foraminal stenosis, as detailed above. See above for details.
== END 2021-03-29 07:27 | disposition home or self-care (01) ==
LOC: HO.MRI 07:26
PROVIDERS: Visit Provider Nurse Practitioner Family
DX: M54.50 Low back pain, unspecified (principal)
CPT/HCPCS: 72148

== ENCOUNTER 2021-11-13 08:55 | Outpatient (REF) | payer MEDICARE, SELFPAY ==
[2021-11-13 11:35] LABS: MANUAL DIFF FLAG NO
[2021-11-13 11:44] LABS: Basophils Percent Auto 0.4 % (0-2); Eosinophils Absolute Auto 0.1 X10*3/uL (0.0-0.4); Eosinophils Percent Auto 2.6 % (0-4); Hematocrit 32.8 % (42.0-52.0); Hemoglobin 9.6 g/dl (14.0-18.0); Imm Gran Abs Auto 0.01 X10*3/uL (0.00-0.03); Imm Gran Pct Auto 0.2 % (0.0-0.4); Lymphocytes Percent Auto 17.5 % (20-40); Mean Corpuscular HGB Conc 29.3 g/dl (31.0-36.0); Mean Corpuscular Hemoglobin 21.5 pg (27.0-33.0); Mean Corpuscular Volume 73.4 fL (80.0-98.0); Mean Platelet Volume 10.8 fL (9.4-12.4); Monocytes Absolute Auto 0.4 X10*3/uL (0.1-1.2); Monocytes Percent Auto 7.7 % (2-11); Neutrophils Absolute Auto 3.9 x10*3/uL (2.0-8.3); Neutrophils Percent Auto 71.6 % (45-73); Platelet Count 284 X10*3/uL (160-400); Red Blood Count 4.47 X10*6/uL (4.60-5.80); Red Cell Distribution Width 16.8 % (11.0-16.0); White Blood Count 5.5 X10*3/uL (4.8-10.8)
[2021-11-13 12:08] LABS: Alanine Aminotransferase 13 U/L (0-40); Albumin Level 4.6 g/dL (3.5-5.0); Alkaline Phosphatase 47 U/L (39-117); Anion Gap 13 (12-20); Aspartate Amino Transferase 15 U/L (5-37); Bilirubin Total 1.1 mg/dL (0.0-1.0); Blood Urea Nitrogen 17 mg/dL (9-16); Calcium 9.5 mg/dL (8.4-10.2); Carbon Dioxide 26 mmol/L (22-29); Chloride 108 mmol/L (96-108); Cholesterol 202 mg/dL; Estimated Glomerular Filt Rate > 60; Glucose Fasting 103 mg/dL (60-99); HDL Cholesterol 56 mg/dL; Iron 20 mcg/dL (45-160); LDL Cholesterol Calculated 126 mg/dl; Percent Iron Saturation 4 % (15-50); Sodium 142 mmol/L (135-145); Total Iron Binding Capacity 528 mcg/dL (228-428); Total Protein 7.1 g/dL (6.5-8.0); Triglycerides 102 mg/dL; Unsaturated Iron Binding 508 ug/dL
[2021-11-13 12:14] LABS: Ferritin 2 ng/mL (20-250); Prostate Specific Antigen Scr 0.48 ng/mL (<0.05-4.0); TSH reflex Free T4 1.43 uIU/mL (0.32-4.0)
[2021-11-13 12:43] LABS: Appearance Urine CLEAR; Color Urine YELLOW; Glucose Urine UA NEG (NEG); Leukocyte Esterase Urine NEG (NEG); Nitrite Urine NEG (NEG); UACC Culture Trigger NO; Urine Blood 1+ (NEG); Urine Ketones NEG (NEG); Urine Protein NEG (NEG-TRACE)
[2021-11-13 14:40] LABS: WBC Urine 0-2 /HPF (0-4)
== END 2021-11-13 08:56 | disposition home or self-care (01) ==
LOC: HO.HMGCLDS 08:55
PROVIDERS: PCP Nurse Practitioner Family; Visit Provider Nurse Practitioner Family
DX: Z00.00 Encounter for general adult medical examination without abnormal findings (principal); Z12.5 Encounter for screening for malignant neoplasm of prostate; E55.9 Vitamin D deficiency, unspecified; D50.9 Iron deficiency anemia, unspecified; E78.5 Hyperlipidemia, unspecified; R53.83 Other fatigue
CPT/HCPCS: 36415; 80053; 80061; 81001; 81003; 82306; 82728; 83540; 84153; 84443; 85025

== ENCOUNTER 2021-12-07 09:56 | Outpatient (REF) | payer MEDICARE, SELFPAY ==
[2021-12-07 11:14] LABS: Appearance Urine CLEAR; Color Urine YELLOW; Glucose Urine UA NEG (NEG); Leukocyte Esterase Urine NEG (NEG); Nitrite Urine NEG (NEG); PH 5.5 (5.0-8.0); UACC Culture Trigger NO; Urine Blood 1+ (NEG); Urine Ketones NEG (NEG); Urine Protein NEG (NEG-TRACE)
[2021-12-07 11:32] LABS: Blood Urea Nitrogen 15 mg/dL (9-16); Estimated Glomerular Filt Rate > 60
[2021-12-07 11:37] LABS: WBC Urine 0 /HPF (0-4)
[2021-12-09 18:26] LABS: Prolactin 5.3 ng/mL (2.0-18.0)
== END 2021-12-07 09:57 | disposition home or self-care (01) ==
LOC: HO.HMGCLDS 09:56
PROVIDERS: PCP Nurse Practitioner Family; Visit Provider Internal Medicine Endocrinology, Diabetes & Metabolism
DX: D35.2 Benign neoplasm of pituitary gland (principal)
CPT/HCPCS: 36415; 81001; 82565; 84146; 84520

== ENCOUNTER 2021-12-15 08:53 | Outpatient (REF) | payer MEDICARE, SELFPAY ==
--- NOTE | ~2021-12-15 | MR_ITS ---
EXAMINATION: MR BRAIN WITHOUT AND WITH CONTRAST CLINICAL INFORMATION: Benign neoplasm of the pituitary gland. COMPARISON: Brain MRI from 03/22/2020. TECHNIQUE: MRI of the brain was obtained using pituitary protocol without and following the administration of 4.5 mL of Gadavist intravenous contrast. FINDINGS: No focal restricted diffusion is demonstrated to suggest acute or subacute cerebral ischemia. No evidence of acute or chronic hemorrhagic products on heme-sensitive imaging. Scattered periventricular and deep white matter T2 FLAIR hyperintensities consistent with mild underlying microangiopathy. Proportional prominence of the ventricles and sulcal spaces without evidence of obstructive hydrocephalus. No abnormal mass effect. No midline shift. Stable appearance of a hypoenhancing lesion with T2 hyperintensity along the right lateral margin of the pituitary gland, measuring 1.3 x 1.1 x 0.9 cm. There remains less than 50% abutment of the cavernous segment of the right ICA. The pituitary gland proper is mildly deviated to the left with unchanged overall morphology and mildly heterogeneous enhancement profile. Normal posterior pituitary bright spot. No new hyperenhancing or hypoenhancing lesions demonstrated on post contrast imaging. The pituitary infundibulum is normal in morphology and minimally deviated to the left. The suprasellar cistern remains patent. No abnormal mass effect on the optic chiasm. Normal positioning of the cerebellar tonsils. Normal arterial and venous vascular flow voids are present. No additional abnormal contrast enhancement. Normal, homogeneous marrow signal. Mild mucosal thickening of the paranasal sinuses. No signal abnormalities within the mastoids. Right-sided lens extraction. MR/MR head/brain wo/w con IMPRESSION: Stable appearance of a 1.4 cm lesion in the right lateral aspect of the sella turcica. No additional acute intracranial abnormalities. No additional abnormal intracranial enhancement. Mild underlying microangiopathy and generalized cerebral volume loss.
== END 2021-12-15 08:54 | disposition home or self-care (01) ==
LOC: HO.MRI 08:53
PROVIDERS: Visit Provider Internal Medicine Endocrinology, Diabetes & Metabolism
DX: D35.2 Benign neoplasm of pituitary gland (principal)
CPT/HCPCS: 70553; A9585

== ENCOUNTER → 2022-01-09 07:57 | Outpatient (BNV) | payer MEDICARE, SELFPAY | PROVIDERS: PCP Nurse Practitioner Family; Referring Provider Nurse Practitioner Family; Visit Provider Internal Medicine | DX: D50.9 Iron deficiency anemia, unspecified (principal) | CPT/HCPCS: 99213; 99214; G2211 ==

== ENCOUNTER → 2022-01-10 13:52 | Outpatient (BNVA) | payer MEDICARE, SELFPAY | PROVIDERS: PCP Nurse Practitioner Family; Visit Provider Internal Medicine Endocrinology, Diabetes & Metabolism | DX: D35.2 Benign neoplasm of pituitary gland (principal); Z79.899 Other long term (current) drug therapy | CPT/HCPCS: 99212 ==

== ENCOUNTER → 2022-01-11 14:00 | Outpatient (BNVA) | payer MEDICARE, SELFPAY | PROVIDERS: PCP Nurse Practitioner Family; Referring Provider Nurse Practitioner Family; Visit Provider Nurse Practitioner | DX: Z01.818 Encounter for other preprocedural examination (principal); Z86.010 Personal history of colon polyps; Z80.0 Family history of malignant neoplasm of digestive organs | CPT/HCPCS: 99202 ==

== ENCOUNTER 2022-01-12 09:36 | Outpatient (REF) | payer MEDICARE, SELFPAY ==
[2022-01-12 12:00] LABS: FIT Int Ctl YES; FIT1 NEGATIVE (NEGATIVE); FIT2 NEGATIVE (NEGATIVE)
== END 2022-01-12 09:37 | disposition home or self-care (01) ==
LOC: HO.HMGCLDS 09:36
PROVIDERS: PCP Nurse Practitioner Family; Visit Provider Nurse Practitioner Family
DX: D50.9 Iron deficiency anemia, unspecified (principal)
CPT/HCPCS: 82274

== ENCOUNTER → 2022-01-23 09:30 | Outpatient (REF) | payer MEDICARE, SELFPAY ==
--- NOTE | 2022-01-23 09:44 | CA_ITS ---
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 The calculated ejection fraction is 69% by biplane method. - No obvious valvular pathology seen on this study. - Ascending aorta appears dilated. Measurements at different levels are 4.3 cm, 4.5 cm. Findings Left Ventricle Normal left ventricular cavity size. The left ventricular systolic function is normal. The calculated ejection fraction is 69% by biplane method. There is no evidence of regional wall motion abnormalities. Diastolic function is normal for age. There is mild septal asymmetric hypertrophy. LV peak GLS 18.8%. Right Ventricle Mildly increased right ventricular cavity size. There is normal right ventricular systolic function. Atria Both atria are normal in size. Aortic Valve There is a normal trileaflet aortic valve. There is no aortic valve stenosis. There is no aortic valve regurgitation. Slightly increased gradients across aortic valve related to high stroke volume. Mitral Valve The mitral valve appears normal. There is trace mitral valve regurgitation. There is no mitral valve stenosis. Pulmonic Valve The pulmonic valve is likely normal. Tricuspid Valve Normal tricuspid valve structure. There is trace tricuspid valve regurgitation. There is no evidence of pulmonary hypertension. Great Vessels The sinuses of valsalva and aortic arch are normal in size. Ascending aorta appears dilated. Measurements at different levels are 4.3 cm, 4.5 cm. Venous The inferior vena cava is normal in size and collapses greater than 50% with inspiration. Pericardium/Pleural There is no evidence of pericardial effusion. Prior Study Comparison Changes noted compared to prior study dated: 11/24/2019. Increase in ascending aortic size. Recommendations, Care & Conclusions No obvious valvular pathology seen on this study. Measurements 2D Linear Measurements IVSd: 1.20 0.6-0.9/0.6-1.0 cm LVIDd: 4.83 3.9-5.3/4.2-5.9 cm LVIDd Index: 2.36 2.4-3.2/2.2-3.1 cm/m2 LVIDs: 2.58 2.0-3.6 cm LVPWd: 0.71 0.7-1.1 cm LA Diam: 3.60 2.7-3.8/3.0-4.0 cm LAIDs Index: 1.76 1.5-2.3 cm/m2 LV Mass: 200.96 67-162/88-224 g LV Mass Index: 98.03 43-95/49-115 g/m2 LVOT Diam: 2.20 3.0+(-)1.3 cm 2D Systolic Function EF 4C: 61.90 >55% EF 2C: 74.80 >55% EF BiP: 68.60 >55% Mitral Valve MV Pk E: 0.58 MV PK A: 0.83 MV Decel Time: 292.00 E/A: 0.70 E'Lateral: 6.22 E'Medial: 4.24 E/E' Med: 13.70 E/E' Lat: 9.30 PHT: 86.00 MVA PHT: 2.56 Decel Potter: 1.99 Aortic Valve AoV Pk Everette: 1.93 AoV Mn Everette: 1.30 AoV VTI: 0.40 AoV Pk Grad: 15.00 Aov Mn Grad: 8.00 MORALES Cont.VTI: 3.33 LVOT LVOT Pk Everette: 1.85 LVOT Mn Everette: 1.20 LVOT VTI: 0.35 LVOT Pk Grad: 14.00 LVOT Mn Grad: 7.00 LVOT Diam: 2.20 LVOT Area: 3.80 Diastolic Function MV Pk E: 0.58 MV Pk A: 0.83 E/A: 0.70 E'Medial: 4.24 E/E' Med: 13.70 E' Laterial: 6.22 E/E' Lat: 9.30 Right Ventricle TAPSE (mm): 22.80 TVS' Everette: 13.20 Tricuspid Valve TR Pk Everette: 2.14 TR Pk Grad: 18.00 RA Press: 3.00 RVSP: 21.00 Great Vessels Aorta Sinus of Valsalva: 3.50 2.0-3.5 cm Ao Asc: 4.50 2.1-3.4 cm Ao Arch: 3.60 Pulmonary Valve PV Pk Everette: 1.02 Peak PV Grad: 4.00 Updated in Other Vendor System with Status of Final Darwin Loomis MD electronically signed on 01/23/2022 11:24:01 AM with status of Final
== END ==
LOC: HO.CARD 09:30
PROVIDERS: PCP Nurse Practitioner Family; Visit Provider Nurse Practitioner Family
DX: R01.1 Cardiac murmur, unspecified (principal)
CPT/HCPCS: 93306; 93356

== ENCOUNTER 2022-01-29 08:27 | Outpatient (REF) | payer MEDICARE, SELFPAY | END 2022-01-29 08:28 | disposition home or self-care (01) | LOC: HO.MDS 08:27 | PROVIDERS: Visit Provider Internal Medicine | DX: D50.9 Iron deficiency anemia, unspecified (principal) | CPT/HCPCS: 96365; J1756 ==

== ENCOUNTER 2022-02-05 08:48 | Outpatient (REF) | payer MEDICARE, SELFPAY | END 2022-02-05 08:49 | disposition home or self-care (01) | LOC: HO.MDS 08:48 | PROVIDERS: Visit Provider Internal Medicine | DX: D50.9 Iron deficiency anemia, unspecified (principal) | CPT/HCPCS: 96365; J1756 ==

== ENCOUNTER 2022-02-12 10:59 | Outpatient (REF) | payer MEDICARE, SELFPAY | END 2022-02-12 11:00 | disposition home or self-care (01) | LOC: HO.MDS 10:59 | PROVIDERS: Visit Provider Internal Medicine | DX: D50.9 Iron deficiency anemia, unspecified (principal) | CPT/HCPCS: 96365; J1756 ==

== ENCOUNTER 2022-02-19 08:55 | Outpatient (REF) | payer MEDICARE, SELFPAY | END 2022-02-19 08:56 | disposition home or self-care (01) | LOC: HO.MDS 08:55 | PROVIDERS: Visit Provider Internal Medicine | DX: D50.9 Iron deficiency anemia, unspecified (principal) | CPT/HCPCS: 96365; J1756 ==

== ENCOUNTER 2022-02-27 08:56 | Outpatient (REF) | payer MEDICARE, SELFPAY | END 2022-02-27 08:57 | disposition home or self-care (01) | LOC: HO.MDS 08:56 | PROVIDERS: Visit Provider Internal Medicine | DX: D50.9 Iron deficiency anemia, unspecified (principal) | CPT/HCPCS: 96365; J1756 ==

== ENCOUNTER 2022-05-16 09:02 | Day surgery (SDC) | payer MEDICARE, SELFPAY ==
[2022-05-09 10:39] VITALS: BMI 35.5
--- NOTE | 2022-05-16 09:40 | HO.ANESPROP2 ---
[facility], [facility] Active Problems Active Problems: All Active Problems (Updated 05/09/22 @ 10:33 by Yisel Acuna RN) Iron deficiency anemia (Chronic) Encounter for screening laboratory testing for COVID-19 virus (Acute) Nasal congestion (Acute) Elevated bilirubin (Acute) Liver lesion (Acute) Right knee pain (Acute) Tear of medial meniscus of right knee (Acute) Physical exam (Acute) Screening PSA (prostate specific antigen) (Acute) Physical exam (Acute) Somatic dysfunction of left sacroiliac joint (Acute) Hematuria (Acute) Left hip pain (Acute) Hearing loss (Acute) Screening for colon cancer (Acute) Systolic murmur (Acute) Vitamin D deficiency (Acute) Pre-op examination (Acute) HHT (hereditary hemorrhagic telangiectasia) (Acute) Low back pain radiating to both legs (Acute) Osteopenia (Acute) Macroprolactinoma (Acute) Prolactinoma (Acute) Past Medical History Medical History (Updated 05/09/22 @ 10:33 by Yisel Acuna RN) Cardiomyopathy HHT (hereditary hemorrhagic telangiectasia) History of COVID-19 History of pituitary tumor Low back pain radiating to both legs Macroprolactinoma Osteopenia Pre-op evaluation Prolactinoma Family History Family History Father Cancer Mother Diabetes Family history of problems with anesthesia: No Surgical History Surgical History (Updated 05/09/22 @ 10:34 by Yisel Acuna RN) History of repair of ACL Hx of blepharoplasty Hx of cataract extraction Hx of eye surgery Hx of meniscectomy of right knee Hx of tonsillectomy History of Problems with Anesthesia: No Social History Social History Household Members: Spouse Housing: House Patient Tobacco Use Status: Never used Tobacco e-Cigarette/Vaping Use: Never Used Second Hand Smoke Exposure: No Advance Directives: No Advance Directives Information Provided: Yes service: Yes Current occupational status: employed and retired 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 Current occupational exposures/hazards: No Cognitive needs: No Hearing needs: No Vision needs: No Meds Allergies Allergy/AdvReac Type Severity Reaction Status Date / Time aspirin [ASPIRIN] Allergy Intermediate heartburn/h Verified 05/09/22 10:15 marcela meperidine [Demerol] AdvReac Intermediate GI upset Verified 05/09/22 10:15 Active Medications: Current Medications Lactated Ringer's (Lr) 1,000 mls @ 100 mls/hr IVCONT .Q10H JEAN CLAUDE Home Medications Medication Instructions Recorded Confirmed Last Taken Type cabergoline 0.5 mg tablet 0.25 mg PO .once a week 01/11/22 05/09/22 Unknown History ferrous sulfate 324 mg (65 mg 324 mg PO DAILY 01/11/22 05/09/22 Unknown History iron) tablet,delayed release Exam Exam Date and Time: May 16, 2022 0940 Height,Weight and Vital Signs: Height 5 ft 1 in Weight 85.275 kg Airway Mallampati Class: II TM Dist: >3cm Neck ROM: Full Assessment and Plan Assessment Anesthesia Assessment: Anesthesia Plan Discussed and Chart Reviewed Final Anesthetic Review Family History of Problems with Anesthesia: No History of Problems with Anesthesia: No NPO: Yes ASA Class: II Final Preanesthetic Review: No Changes in Pt Med Stat, Meds/Allgs Chart Reviewed, Consent Obtained/Reviewed and Anes Risks/Benef Reviewed Patient Risk: Low Procedure Risk: Low Anesthetic Plan Anesthetic Plan: MAC: Disposition: Standard PACU
[2022-05-16 09:48] VITALS: BP 142/88; PULSE 65; RESP 16; TEMP 36.3; O2SAT 99
[2022-05-16] MEDS: Lactated Ringers 1,000 ML 100 ML IVCONT (09:49)
--- NOTE | 2022-05-16 10:01 | MHC.SHP ---
Pre-Procedural Eval Section A Date of Service: 05/16/22 Section B Chief Complaint: screening Details of Present Illness: father had CRC Relevant Family History (Specify if Yes): Yes Relevant Social History: None Present Medications: see Short Stay Collaborative assessment Medical History: Significant History (Cardiomyopathy HHT (hereditary hemorrhagic telangiectasia) History of COVID-19 History of pituitary tumor Low back pain radiating to both legs Macroprolactinoma Osteopenia Pre-op evaluation Prolactinoma) History of Previous Operations: Relevant previous surgery/procedure and date(s) (History of repair of ACL Hx of blepharoplasty Hx of cataract extraction Hx of eye surgery Hx of meniscectomy of right knee Hx of tonsillectomy) Allergies: Allergies Allergy/AdvReac Type Severity Reaction Status Date / Time aspirin [ASPIRIN] Allergy Intermediate heartburn/h Verified 05/09/22 10:15 marcela meperidine [Demerol] AdvReac Intermediate GI upset Verified 05/09/22 10:15 Review of Systems Sugical H&P ROS: Negative: Constitution, Cardiovascular, Respiratory, Neurological, Psychiatric, Hem-Onc, Allergic/Immunologic, Gastrointestinal, Genitourinary, Musculoskeletal, Integumentary, Endocrine and Eyes/Ears/Nose/Throat Exam Surgical H&P Exam: Normal: HEENT, Normal: Heart, Normal: Lungs, Normal: Extremities, Normal: Abdomen, Normal: Skin and Normal: Neurological Plan Diagnosis/Plan: Unchanged I have reviewed the history and physical and performed a pertinent physical examination on my patient. No changes have occurred unless specified. Time Spent With Patient Time: Total time managing care of this patient today ____ minutes.
--- NOTE | 2022-05-16 10:02 | W.PM.OPN ---
Operative Note Operative Note Date of Service: 05/16/22 Narrative: Operative Information Procedure Description: Colonoscopy Indication: screening Anesthesia: MAC COLONOSCOPY Instrument: Olympus variable stiffness Adult scope 190L Colonoscopy Monitoring: Vital signs and clinical assessment, continuous EKG monitoring, Pulse oximetry, Carbon Dioxide monitoring and blood pressure monitoring were done throughout the procedure. Colon withdrawal time was 14 minutes. Procedure: The patient was placed in the left lateral decubitis position and pre-procedure medications were administered. After a digital rectal examination of the ano-rectum, the video colonoscope was inserted into the rectum and advanced through the colon to the cecum/TI. The colonoscope was slowly withdrawn in a retrograde panoramic fashion and the colon mucosa was carefully examined including a retroflexed view of the rectum. Findings and interventions are described below. Procedure Difficulty: easy Findings: Terminal Ileum-normal Cecum:normal Ascending Colon: normal Transverse Colon - 8-9 mm sessile polyp removed with cold snare Descending Colon:normal Sigmoid Colon: normal Rectum: Retroflexion with medium sized internal hemorrhoids, grade I Anorectum - normal Colon preparation: [place] Bowel Preparation Scale Right colon; 1-2 Transverse colon: 2 Left colon; 1-2 (0 = Unprepared colon segment with mucosa not seen due to solid stool that cannot be cleared. 1 = Portion of mucosa of the colon segment seen, but other areas of the colon segment not well seen due to staining, residual stool and/or opaque liquid. 2 = Minor amount of residual staining, small fragments of stool and/or opaque liquid, but mucosa of colon segment seen well. 3 = Entire mucosa of colon segment seen well with no residual staining, small fragments of stool or opaque liquid) Impression and Post Procedure Diagnosis: polyp internal hemorrhoids fair prep Plan: High fiber diet leaflet Avoid straining at stool, epsom salts and sitz bath, anusol supps or cream Repeat Colonoscopy in 2-3 years or earlier if clinically indicated, review prep next time. Above findings were reviewed with the patient and relevant handouts were provided if indicated.
[2022-05-16 10:46] VITALS: BP 120/71; PULSE 64; RESP 20; TEMP 36.4; O2SAT 97
[2022-05-16 11:00] VITALS: BP 122/76; PULSE 52; RESP 16; TEMP 36.4; O2SAT 98
== END 2022-05-16 11:23 | disposition home or self-care (01) ==
PROVIDERS: PCP Nurse Practitioner Family; Visit Provider Internal Medicine Gastroenterology
PROC: 0DJD8ZZ Inspection of Lower Intestinal Tract, Via Natural or Artificial Opening Endoscopic (ICD-10-PCS; CPT 45378; principal; 2022-05-16 10:20)
DX: Z12.11 Encounter for screening for malignant neoplasm of colon (principal); Z80.0 Family history of malignant neoplasm of digestive organs; Z86.010 Personal history of colon polyps; D12.3 Benign neoplasm of transverse colon; K64.0 First degree hemorrhoids; I78.0 Hereditary hemorrhagic telangiectasia; M85.80 Other specified disorders of bone density and structure, unspecified site; I42.9 Cardiomyopathy, unspecified; D35.2 Benign neoplasm of pituitary gland; Z79.899 Other long term (current) drug therapy; Z88.8 Allergy status to other drugs, medicaments and biological substances
CPT/HCPCS: 45385; 88305

== ENCOUNTER → 2022-05-30 13:25 | Outpatient (BNVA) | payer MEDICARE, SELFPAY | PROVIDERS: PCP Nurse Practitioner Family; Visit Provider Nurse Practitioner | DX: D12.6 Benign neoplasm of colon, unspecified (principal) | CPT/HCPCS: 99212 ==

== ENCOUNTER 2022-11-16 10:10 | Outpatient (REF) | payer MEDICARE, SELFPAY ==
[2022-11-16 11:29] LABS: MANUAL DIFF FLAG NO
[2022-11-16 11:30] LABS: Appearance Urine Clear; Color Urine Yellow; Glucose Urine UA Negative (Negative); Leukocyte Esterase Urine Small (1+) (Negative); Nitrite Urine Negative (Negative); PH 5.5 (5.0-9.0); UMIC TRIGGER UACC YES; Urine Blood Moderate (2+) (Negative); Urine Ketones Negative (Negative); Urine Protein Negative (Neg-Trace)
[2022-11-16 11:32] LABS: Basophils Percent Auto 0.4 % (0-2); Eosinophils Absolute Auto 0.1 X10*3/uL (0.0-0.4); Hemoglobin 14.2 g/dl (14.0-18.0); Imm Gran Abs Auto 0.02 X10*3/uL (0.00-0.03); Imm Gran Pct Auto 0.3 % (0.0-0.4); Lymphocytes Absolute Auto 1.2 X10*3/uL (1.2-4.9); Lymphocytes Percent Auto 17.1 % (20-40); Mean Corpuscular Hemoglobin 30.7 pg (27.0-33.0); Mean Corpuscular Volume 92.9 fL (80.0-98.0); Monocytes Absolute Auto 0.5 X10*3/uL (0.1-1.2); Monocytes Percent Auto 7.3 % (2-11); Neutrophils Percent Auto 72.9 % (45-73); Platelet Count 210 X10*3/uL (160-400); Red Blood Count 4.63 X10*6/uL (4.60-5.80); White Blood Count 6.8 X10*3/uL (4.8-10.8)
[2022-11-16 11:36] LABS: Bacteria Urine None Seen (None Seen); Hyaline Casts Urine 0-2 /LPF (0-2); Squamous Epithelial Cell Urine 0-2 /HPF (0-2); UACC Culture Trigger YES; WBC Urine 21-50 /HPF (0-5)
[2022-11-16 12:17] LABS: Alanine Aminotransferase 20 U/L (0-40); Albumin Level 4.3 g/dL (3.5-5.0); Alkaline Phosphatase 44 U/L (39-117); Anion Gap 15 (12-20); Aspartate Amino Transferase 22 U/L (5-37); Bilirubin Direct 0.4 mg/dL (0.0-0.5); Bilirubin Total 1.9 mg/dL (0.0-1.0); Blood Urea Nitrogen 17 mg/dL (9-16); Calcium 10.1 mg/dL (8.4-10.2); Carbon Dioxide 25 mmol/L (22-29); Chloride 106 mmol/L (96-108); Cholesterol 226 mg/dL; Estimated Glomerular Filt Rate > 60; Glucose Fasting 87 mg/dL (60-99); HDL Cholesterol 57 mg/dL; LDL Cholesterol Calculated 141 mg/dl; Potassium 3.9 mmol/L (3.3-5.1); Sodium 142 mmol/L (135-145); Triglycerides 144 mg/dL
[2022-11-16 12:40] LABS: TSH reflex Free T4 1.68 uIU/mL (0.32-4.0)
[2022-11-17 08:43] LABS: Prolactin 9.2 ng/mL (2.0-18.0)
== END 2022-11-16 10:11 | disposition home or self-care (01) ==
LOC: HO.HMGCLDS 10:10
PROVIDERS: Absent Provider Internal Medicine Endocrinology, Diabetes & Metabolism; PCP Nurse Practitioner Family; Visit Provider Nurse Practitioner Family
DX: Z00.00 Encounter for general adult medical examination without abnormal findings (principal); Z12.5 Encounter for screening for malignant neoplasm of prostate; D35.2 Benign neoplasm of pituitary gland; R82.90 Unspecified abnormal findings in urine; E78.5 Hyperlipidemia, unspecified
CPT/HCPCS: 36415; 80053; 80061; 80076; 81001; 84146; 84153; 84443; 85025; 87086; 87088; 87186

== ENCOUNTER 2022-12-07 09:16 | Outpatient (REF) | payer MEDICARE, SELFPAY ==
[2022-12-07 10:47] LABS: Appearance Urine Clear; Color Urine Yellow; Glucose Urine UA Negative (Negative); Leukocyte Esterase Urine Negative (Negative); Nitrite Urine Negative (Negative); PH 5.5 (5.0-9.0); UMIC TRIGGER UACC YES; Urine Blood Small (1+) (Negative); Urine Ketones Negative (Negative); Urine Protein Negative (Neg-Trace)
[2022-12-07 10:58] LABS: Bacteria Urine None Seen (None Seen); Hyaline Casts Urine 0-2 /LPF (0-2); Squamous Epithelial Cell Urine 0-2 /HPF (0-2); WBC Urine 0-5 /HPF (0-5)
[2022-12-07 11:08] LABS: Bilirubin Direct 0.4 mg/dL (0.0-0.5); Bilirubin Total 1.3 mg/dL (0.0-1.0)
== END 2022-12-07 09:17 | disposition home or self-care (01) ==
LOC: HO.LAB 09:16
PROVIDERS: PCP Nurse Practitioner Family; Visit Provider Nurse Practitioner
DX: R17 Unspecified jaundice (principal); D12.6 Benign neoplasm of colon, unspecified
CPT/HCPCS: 36415; 81001; 82247; 82248; 99212

== ENCOUNTER 2022-12-07 09:16 | Outpatient (AMB) | payer MEDICARE, SELFPAY ==
--- NOTE | 2022-12-07 09:20 | MHC.OFFVIS ---
Intake Vital Signs 12/07/22 09:21 Height 5 ft 11 in Weight 195 lb 5.273 oz BMI 27.2 BP 116/73 Blood Pressure Location Lt brachial Position Sitting Pulse 53 Intake Visit Reasons: unspecified jaundice Intake Note: Patient presents to in office visit today in follow up of unspecified jjaundice. CC: Reports he has been doing well other thatn a cold he is getting over of. Allergies aspirin [ASPIRIN] Allergy (Intermediate, Verified 11/19/22 08:46) heartburn/hives meperidine [Demerol] Adverse Reaction (Intermediate, Verified 11/19/22 08:46) GI upset HPI unspecified jaundice HPI Details Assessment & Plan (1) Tubular adenoma of colon: ?Comment: Sessile polyp 2021 scope large in size repeat in 3 years ?Code(s): D12.6 - Benign neoplasm of colon, unspecified ?Plan: He presents to day along with his who also had a colonoscopy this same date.? He tolerated the procedure well.? I explained the results and because of the size of the polyp will see him again in 3 years and he is quite agreeable to this.? He is aware that we will put him on a 3 year recall list but if he moves out of the area he needs to remember to have he repeat in 3 years so we can assess complete removal of the sessile polyp and make sure he does not grow polyps faster than the average person. Laboratory Tests 11/16/22 11/16/22 11/16/22 10:14 10:14 10:14 WBC 6.8 Hgb 14.2 Hct 43.0 Plt Count 210 Estimated GFR > 60 Total Bilirubin 1.9 H Direct Bilirubin 0.4 AST 22 ALT 20 Alkaline Phosphata se 44 TSH 1.68 TODAY'S VISIT PATIENT APPEARS TO BE HERE FOR COMPLETELY NEW COMPLAINT OF JAUNDICE. He has had a cold over the past week and is recovering. No FHX of liver disease. No abd pain, no concerning GI sx no alarm sx. We will get the fractionated bili and return in 3 weeks. ROV 3 weeks. PFSH Medical History Cardiomyopathy HHT (hereditary hemorrhagic telangiectasia) History of COVID-19 History of pituitary tumor Low back pain radiating to both legs Macroprolactinoma Osteopenia Pre-op evaluation Prolactinoma Surgical History (Reviewed 11/14/22 @ 16:38 by Stevan Soto 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 Current occupational exposures/hazards: No Cognitive needs: No Hearing needs: No Vision needs: No Review of Systems Const Denies fatigue, Denies fever(s), Denies night sweats, Denies poor appetite and Denies weight loss ENT Reports Normal hearing present, Denies dental pain, Denies dysphagia, Denies hearing loss, Denies mouth pain, Denies odynophagia, Denies throat swelling, Denies tongue swelling and Reports other (Dentition adequate) Card Reports no additional complaints Resp Reports no additional complaints GI Denies abdominal pain, Denies melena, Denies bloating, Denies hematochezia, Denies constipation, Denies GI cramping, Denies dysphagia, Denies excessive flatus, Denies early satiety, Denies heartburn, Denies diarrhea, Denies nausea, Denies odynophagia, Denies vomiting and Denies hematemesis Skin/Breast Denies pruritus, Denies lesions, Denies rash and Denies jaundice Neuro Reports Normal hearing present and Denies Abnormal speech present Endo Denies fatigue Aller/Immun Denies throat swelling and Denies tongue swelling Physical Exam Vital Signs: BMI result Body Mass Index 27.2 Const General: cooperative, no acute distress, well developed and well groomed Nutritional Appearance: average body habitus and well nourished Orientation/consciousness: oriented to person, oriented to place and oriented to time Limitations: No language barrier HEENT Head: Yes normocephalic and Yes atraumatic Eyes General: appearance normal, both eyes and all related structures Pupils: Equal, round and reactive pupils present Neck Neck: Yes normal visual inspection and Yes no lymphadenopathy Thyroid: Thyroid normal Resp Effort & Inspection: normal respiratory effort and able to speak in complete sentences Auscultation: clear to auscultation bilaterally Cardio Rate: regular rate Rhythm: regular rhythm Heart sounds: Normal, physiologic split S2 sound present Peripheral pulses: radial pulses present and posterior tibial pulses present GI Inspection: No distended and No Abdominal panniculus present Palpation (GI): Soft to palpation, nontender, no guarding, not rigid and No hepatosplenomegaly present Percussion: Yes normal to percussion Auscultation: normal bowel sounds Rectal Exam - Male: Yes deferred Skin General skin exam: no rashes or lesions noted, turgor normal, skin not dry, no jaundice, No spider nevi and no striae Rashes: no rashes Nails: normal Neuro General: oriented to person, oriented to place and oriented to time Cranial nerves: Yes Equal, round and reactive pupils present and Yes Normal hearing present Speech: No Abnormal speech present Extrem General: Yes normal to inspection, No clubbing, No cyanosis and No edema Psych Appearance: grossly normal and well kempt Mental Status: mental status grossly normal Speech and movement: Normal speech and movement present Affect: normal affect Attitude: cooperative Thought process: Normal thought process present and not confabulating Thought content: Normal thought content present Insight: Fair insight present (Psych) Judgement: Fair judgement present (Psych) Assessment & Plan Assessment & Plan (1) Elevated bilirubin: Code(s): R17 - Unspecified jaundice Plan: PATIENT APPEARS TO BE HERE FOR COMPLETELY NEW COMPLAINT OF JAUNDICE. He has had a cold over the past week and is recovering. No FHX of liver disease. No abd pain, no concerning GI sx no alarm sx. We will get the fractionated bili and return in 3 weeks. ROV 3 weeks. (2) Tubular adenoma of colon: Comment: Sessile polyp 2021 scope large in size repeat in 3 years Code(s): D12.6 - Benign neoplasm of colon, unspecified Orders: Orders Bilirubin Direct 11/26/22 R17 - Unspecified jaundice Bilirubin Total 11/26/22 R17 - Unspecified jaundice Coding Level of Care Code Est Pt Level 3 (38981) Diagnoses Elevated bilirubin R17 Tubular adenoma of colon D12.6
[2022-12-07 09:21] VITALS: BP 116/73; PULSE 53; BMI 27.2
== END 2022-12-07 09:35 | disposition home or self-care (01) ==
PROVIDERS: PCP Nurse Practitioner Family; Visit Provider Nurse Practitioner
DX: R17 Unspecified jaundice (principal); D12.6 Benign neoplasm of colon, unspecified
CPT/HCPCS: 99213

== ENCOUNTER 2022-12-20 08:28 | Outpatient (REF) | payer MEDICARE, SELFPAY ==
--- NOTE | ~2022-12-20 | CT_ITS ---
EXAMINATION: CT ANGIOGRAM CHEST CLINICAL INFORMATION: Thoracic aortic ectasia COMPARISON: None. TECHNIQUE: Multiple axial images were obtained through the chest after the administration of 70 mL of intravenous Omnipaque 350. Images were evaluated on independent dedicated 3-D workstation and 3-D images were reconstructed with concurrent radiologist supervision and subsequently interpreted. This CT examination was performed using dose optimization techniques as appropriate, variously including the following: *Automated exposure control *Adjustment of mA and/or kV according to patient size (this includes techniques or standardized protocols for targeted exams where dose is matched to indication/reason for exam; i.e. extremities or head) *Use of iterative reconstruction technique DLP: 70 mGy-cm FINDINGS: VASCULAR FINDINGS: Heart: Normal in size. Coronary artery calcifications present. Aorta: No aneurysm or dissection of the thoracic aorta. No penetrating atheromatous ulcer. Ascending Thoracic Aorta (largest diameter): 44.2 x 44.7 mm Aortic Arch: 30 mm Proximal descending Thoracic Aorta (at level of main PA): 28.7 x 25.6 mm Distal descending Thoracic Aorta : 26.6 x 23.0 mm NONVASCULAR FINDINGS: Thyroid Gland: The visualized thyroid gland is normal. Lymph Nodes: No supraclavicular, axillary, mediastinal or hilar lymphadenopathy is identified. Airways: The trachea and central bronchi are normal. Lungs: No airspace consolidation. No suspicious nodules or masses. Pleura: No pleural effusion. No pneumothorax. Upper Abdomen: Few subcentimeter arterially enhancing foci within the right hepatic lobe, too small to characterize. Soft Tissues/Musculoskeletal: No acute fracture or focal osseous lesion. CT/CT angio chest aorta IMPRESSION: 1. Ascending aortic aneurysm measuring 44.2 x 44.7 mm. 2. Few arterially enhancing foci within the right hepatic lobe, too small to fully characterize. Statistically, these are likely to represent transient hepatic attenuation differences (RUSSEL). However, in the setting of malignancy or cirrhosis, further evaluation with MRI abdomen with contrast would be warranted to exclude malignancy. Fleischner guidelines were followed.
[2022-12-20] MEDS: iohexoL 350 MG/ML 100 ML INFUS..BTL 70 ML IV (08:57)
== END 2022-12-20 08:29 | disposition home or self-care (01) ==
LOC: HO.CT 08:28
PROVIDERS: PCP Nurse Practitioner Family; Visit Provider Nurse Practitioner Family
DX: I77.810 Thoracic aortic ectasia (principal)
CPT/HCPCS: 71275; Q9967

== ENCOUNTER 2023-01-02 08:00 | Outpatient (AMB) | payer MEDICARE, SELFPAY ==
--- NOTE | 2023-01-02 08:13 | A.OFFVIS_ITS ---
Intake Intake Visit Reasons: 3 Week FU Elevated Bili Allergies aspirin [ASPIRIN] Allergy (Intermediate, Verified 11/19/22 08:46) heartburn/hives meperidine [Demerol] Adverse Reaction (Intermediate, Verified 11/19/22 08:46) GI upset HPI 3 Week FU Elevated Bili HPI Details Assessment & Plan (1) Elevated bilirubin: ?Code(s): R17 - Unspecified jaundice ?Plan: PATIENT APPEARS TO BE HERE FOR COMPLETELY NEW COMPLAINT OF JAUNDICE. He has had a cold over the past week and is recovering. No FHX of liver disease. No abd pain, no concerning GI sx no alarm sx. We will get the fractionated bili and return in 3 weeks. ROV 3 weeks. (2) Tubular adenoma of colon: ?Comment: Sessile polyp 2021 scope large in size repeat in 3 years ?Code(s): D12.6 - Benign neoplasm of colon, unspecified ? ? ? Orders: Orders Bilirubin Direct 11/26/22 R17 - Unspecified jaundice ? Bilirubin Total 11/26/22 R17 - Unspecified jaundice ? Laboratory Tests 12/07/22 09:50 Total Bilirubin 1.3 H Direct Bilirubin 0.4 TODAY'S VISIT Educated RE: [place] syndrome. No need to follow with me, can be monitored by PCP and if direct bili ever rises can return. ROV prn PFSH Medical History Cardiomyopathy HHT (hereditary hemorrhagic telangiectasia) History of COVID-19 History of pituitary tumor Low back pain radiating to both legs Macroprolactinoma Osteopenia Pre-op evaluation Prolactinoma Surgical History History of repair of ACL Hx of blepharoplasty Hx of cataract extraction Hx of eye surgery Hx of meniscectomy of right knee Hx of tonsillectomy Family History Father Cancer Mother Diabetes Social History Household Members: Spouse Housing: House Patient Tobacco Use Status: Never used Tobacco e-Cigarette/Vaping Use: Never Used Second Hand Smoke Exposure: No service: Yes Current occupational status: employed and retired 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 Current occupational exposures/hazards: No Cognitive needs: No Hearing needs: No Vision needs: No Review of Systems Const Denies fatigue, Denies fever(s), Denies night sweats, Denies poor appetite and Denies weight loss Eyes Details: glasses Reports requires corrective lenses ENT Reports Normal hearing present, Denies dental pain, Denies dysphagia, Denies hearing loss, Denies mouth pain, Denies odynophagia, Denies throat swelling, Denies tongue swelling and Reports other (Dentition adequate) Card Reports no additional complaints Resp Reports no additional complaints GI Denies abdominal pain, Denies melena, Denies bloating, Denies hematochezia, Denies constipation, Denies GI cramping, Denies dysphagia, Denies excessive flatus, Denies early satiety, Denies heartburn, Denies diarrhea, Denies nausea, Denies odynophagia, Denies vomiting and Denies hematemesis Skin/Breast Denies pruritus, Denies lesions, Denies rash and Denies jaundice Neuro Reports Normal hearing present and Denies Abnormal speech present Endo Denies fatigue Aller/Immun Denies throat swelling and Denies tongue swelling Physical Exam Const General: cooperative, no acute distress, well developed and well groomed Nutritional Appearance: average body habitus and well nourished Orientation/consciousness: oriented to person, oriented to place and oriented to time Limitations: No language barrier HEENT Head: Yes normocephalic and Yes atraumatic Eyes General: appearance normal, both eyes and all related structures Pupils: Equal, round and reactive pupils present Neck Neck: Yes normal visual inspection and Yes no lymphadenopathy Thyroid: Thyroid normal Resp Effort & Inspection: normal respiratory effort and able to speak in complete sentences Auscultation: clear to auscultation bilaterally Cardio Rate: regular rate Rhythm: regular rhythm Heart sounds: Normal, physiologic split S2 sound present Peripheral pulses: radial pulses present and posterior tibial pulses present GI Inspection: No distended and No Abdominal panniculus present Palpation (GI): Soft to palpation, nontender, no guarding, not rigid and No hepatosplenomegaly present Percussion: Yes normal to percussion Auscultation: normal bowel sounds Rectal Exam - Male: Yes deferred Skin General skin exam: no rashes or lesions noted, turgor normal, skin not dry, no jaundice, No spider nevi and no striae Rashes: no rashes Nails: normal Neuro General: oriented to person, oriented to place and oriented to time Cranial nerves: Yes Equal, round and reactive pupils present and Yes Normal hear ing present Speech: No Abnormal speech present Extrem General: Yes normal to inspection, No clubbing, No cyanosis and No edema Psych Appearance: grossly normal and well kempt Mental Status: mental status grossly normal Speech and movement: Normal speech and movement present Affect: normal affect Attitude: cooperative Thought process: Normal thought process present and not confabulating Thought content: Normal thought content present Insight: Good insight present (Psych) Judgement: Good judgement present (Psych) Assessment & Plan Assessment & Plan (1) [place] syndrome: Code(s): E80.4 - [place] syndrome Plan: Educated RE: [place] syndrome. No need to follow with me, can be monitored by PCP and if direct bili ever rises can return. ROV prn Coding Level of Care Code Est Pt Level 3 (73818) Diagnoses [place] syndrome E80.4
== END 2023-01-02 08:40 | disposition home or self-care (01) ==
PROVIDERS: PCP Nurse Practitioner Family; Visit Provider Nurse Practitioner
DX: E80.4 Gilbert syndrome (principal)
CPT/HCPCS: 99213

== ENCOUNTER → 2023-01-02 08:00 | Outpatient (BNVA) | payer MEDICARE, SELFPAY | PROVIDERS: PCP Nurse Practitioner Family; Visit Provider Nurse Practitioner | DX: R17 Unspecified jaundice (principal); D12.6 Benign neoplasm of colon, unspecified; E80.4 Gilbert syndrome | CPT/HCPCS: 99212 ==

== ENCOUNTER 2023-02-05 10:31 | Outpatient (AMB) | payer MEDICARE, SELFPAY ==
[2023-02-05 10:31] VITALS: BP 138/82; PULSE 78; BMI 28.8
--- NOTE | 2023-02-05 10:31 | MHC.OFFVIS ---
Intake Vital Signs 02/05/23 10:31 Height 5 ft 11 in Weight 206 lb 9.17 oz BMI 28.8 BP 138/82 Blood Pressure Location Lt brachial Position Sitting Pulse 78 Pulse Source Pulse Oximeter Intake Visit Reasons: Follow-up prolactinoma/LVM Intake Note: Patient present for Prolactinoma follow up visit. 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 Cristina . He is feeling well. He has no complaints. Denies problem He denies any increased headache or loss of vision He had MRI in January 2019 which showed stable macro adenoma 1.4 cm. He was under Dr Gill for prolactinoma, last seen about 3 years a go. He had a trial holding Cabergoline about 6 years ago. He has been on cabergoline 0.25 mg once a week. He has PMH of Vitiligo, dyslipidemia. He denies cold or heat intolerance, weight gain or loss, constipation or diarrhea, dry skin, tremors, palpitations, sweating, anxiety, insomnia, fatigue, cognitive dysfunction, denies erectile dysfunction, normal libido, diplopia, decrease peripheral vision, headache, no galactorrhea, he denies dizziness, postural dizziness, nausea, vomiting, diarrhea, rash, denies increase in size of shoes, hat, gloves, snoring, hyperhydrosis, body odor, polyuria, polydipsia, nocturia. 03/17/15 Prolactin 10.6 pg/ml 01/13/18 TSH 3.03 miu/ml. 03/22/2020 MRI sella. Stable right pituitary macroadenoma with a maximum size of 1.4 cm. No encroachment on the optic chiasm nor the optic nerve. Minimal pituitary stalk shift seen to the left side on the coronal image. Small Tornwaldt cyst is stable since 02/12/2018 and 02/05/2019. 1 cm lesion in the left nasopharyngeal lateral recess is stable since 02/12/2018 and 02/05/2019 MRI brain. 06/05/18 DEXA scan AP SPINE L1-L4: There is levocurvature lumbar spine and degenerative changes with may cause overestimation of the lumbar bone mineral density. BMD 1.172 g/cm2, Z-score -0.4, T-score -0.4, normal. LEFT FEMUR, NECK: BMD 0.872 g/cm2, Z-score -0.7, T-score -1.5, osteopenia. LEFT FEMUR, TOTAL: BMD 0.969 g/cm2, Z-score -0.6, T-score -0.9, normal. 07/10/18 Estradiol ultrasensitive 17.3 pg/ml (8-35) total estrogen 143 pg/ml (40-115). Laboratory Tests 11/07/20 09:05 Prolactin 8.3 Laboratory Tests 02/04/19 02/04/19 11/11/19 09:14 09:14 08:25 25-OH Vitamin D To juliana 52.1 Free T4 0.74 Estradiol Ultra LC MSMS 29 Total Estrogens 157.8 Prolactin 9.0 Sex Hormone Bind G lob 31 PFSH Medical History Cardiomyopathy HHT (hereditary hemorrhagic telangiectasia) History of COVID-19 History of pituitary tumor Low back pain radiating to both legs Macroprolactinoma Osteopenia Pre-op evaluation Prolactinoma Surgical History Hx of meniscectomy of right knee History of repair of ACL Hx of cataract extraction Hx of blepharoplasty Hx of eye surgery Hx of tonsillectomy Family History Father Cancer Mother Diabetes Social History Household Members: Spouse Housing: House Patient Tobacco Use Status: Never used Tobacco e-Cigarette/Vaping Use: Never Used Second Hand Smoke Exposure: No service: Yes Current occupational status: employed and retired 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 Assessment & Plan Assessment & Plan (1) Macroprolactinoma: Code(s): D35.2 - Benign neoplasm of pituitary gland Plan: This is a 72-year-old white male with a history of a macro prolactinoma currently being treated with cabergoline 0.25 mg Q weekly. Recent MRI showed stability in the size of the adenoma. Prolactin remains in normal range on cabergoline The plan is to repeat an MRI the pituitary checked this size of the adenoma. Assuming stability of size, would continue current management Orders: Orders MR head/brain wo/w con Today D35.2 - Benign neoplasm of pituitary gland Coding Level of Care Code Est Pt Level 3 (90173) Diagnoses Macroprolactinoma D35.2
== END 2023-02-05 10:56 | disposition home or self-care (01) ==
PROVIDERS: PCP Nurse Practitioner Family; Visit Provider Internal Medicine Endocrinology, Diabetes & Metabolism
DX: D35.2 Benign neoplasm of pituitary gland (principal)
CPT/HCPCS: 99213

== ENCOUNTER → 2023-02-05 10:31 | Outpatient (BNVA) | payer MEDICARE, SELFPAY | PROVIDERS: PCP Nurse Practitioner Family; Visit Provider Internal Medicine Endocrinology, Diabetes & Metabolism | DX: D35.2 Benign neoplasm of pituitary gland (principal) | CPT/HCPCS: 99212 ==

== ENCOUNTER 2023-03-21 15:18 | Outpatient (REF) | payer MEDICARE, SELFPAY ==
--- NOTE | ~2023-03-21 | MR_ITS ---
EXAMINATION: MR BRAIN WITHOUT AND WITH CONTRAST CLINICAL INFORMATION: Follow up pituitary lesion. COMPARISON: 12/15/2021 MRI. TECHNIQUE: Multiplanar, multisequence MRI of the brain/sella was obtained before and after the intravenous administration of 9 mL Gadavist. FINDINGS: Sella: Redemonstrated is a hypoenhancing lesion on the right side of the pituitary gland, which measures 1.1 x 0.8 x 1.2 cm in maximum dimensions, largely stable in appearance when compared to the previous study. This abuts the medial wall of the cavernous segment of the right ICA as noted on previous exam without definite cavernous sinus invasion based on MRI criteria. The remainder of the gland enhances slightly heterogeneously as noted on previous exam. The infundibulum is midline, enhances normally and is deviated slightly to the left, stable in appearance. No significant encroachment on the suprasellar structures. Brain Volume: Within normal limits within the limitations of qualitative assessment. Structural: No malformations. Brain and Meninges: DWI sequence demonstrates no restricted diffusion to suggest acute or subacute cerebral ischemia. Redemonstrated are scattered small foci of FLAIR/T2 signal hyperintensity in the white matter of both cerebral hemispheres with no abnormal enhancement consistent with chronic ischemic microangiopathy in a patient of this age. No other intracranial mass lesions, pathologic intracranial enhancement, extra-axial fluid collections, space-occupying process or mass effect are identified. Ventricles and Subarachnoid Spaces: The ventricular system and subarachnoid spaces are within normal range; there is no hydrocephalus. Orbital Structures: Right-sided lens extraction noted, unchanged. Otherwise, the visualized orbital structures are grossly unremarkable within the limitations of the study. Vascular: Signal voids are noted in the visualized major intracranial vessels. Osseous Structures, Sinuses/Mastoids, Extracranial Soft Tissues: Osseous marrow signal intensity is unchanged in appearance from previous study and grossly within normal limits. There is some mucosal thickening in the paranasal sinuses, similar to the previous exam. Minor fluid signal noted in the mastoids, left more than right, unchanged. There is a 4 mm greatest short-axis medial left retropharyngeal lymph node, unchanged in size. MR/MR head/brain wo/w con IMPRESSION: 1. Stable right-sided pituitary lesion consistent with a pituitary adenoma. 2. Chronic ischemic microangiopathy in the white matter of both cerebral hemispheres, largely unchanged in appearance. 3. Paranasal sinus mucosal inflammatory changes, similar to the previous exam.
[2023-03-21] MEDS: gadobutroL 10 ML VIAL IVPUSH (16:34)
== END 2023-03-21 15:19 | disposition home or self-care (01) ==
LOC: HO.MRI 15:18
PROVIDERS: PCP Nurse Practitioner Family; Visit Provider Internal Medicine Endocrinology, Diabetes & Metabolism
DX: D35.2 Benign neoplasm of pituitary gland (principal)
CPT/HCPCS: 70553; A9585

== ENCOUNTER 2023-03-29 12:56 | Outpatient (REF) | payer MEDICARE, SELFPAY ==
[2023-03-29 16:40] LABS: Urine Cytology See Pathology rpt
== END 2023-03-29 12:57 | disposition home or self-care (01) ==
LOC: HO.LAB 12:56
PROVIDERS: PCP Nurse Practitioner Family; Visit Provider Urology
DX: R31.29 Other microscopic hematuria (principal); I78.0 Hereditary hemorrhagic telangiectasia; Z79.899 Other long term (current) drug therapy
CPT/HCPCS: 81003; 88112; 99202

== ENCOUNTER 2023-03-29 12:56 | Outpatient (AMB) | payer MEDICARE, SELFPAY ==
--- NOTE | 2023-03-29 13:04 | A.OFFVIS_ITS ---
Intake Intake Visit Reasons: micro hematuria Intake Note: NEW Patient presents today to established treatment for Micro Hematuria: Meds- None Allergies to Antibiotic- No Known Allergies Blood Thinner- None Community Coordinator Required: No Accompanied by: Self / Same As Patient Allergies aspirin [ASPIRIN] Allergy (Intermediate, Verified 03/29/23 13:14) heartburn/hives meperidine [Demerol] Adverse Reaction (Intermediate, Verified 03/29/23 13:14) GI upset Medication List - Last Reconciled 03/29/23 by Amaris Snider MD atorvastatin 20 mg PO BEDTIME cabergoline 0.25 mg (1/2 x 0.5 mg) PO .once a week ferrous sulfate 324 mg PO DAILY HPI HPI Comments History of Present Illness Details Justice is a 72-year-old male who presents today to the office to establish as a new patient for an microscopic hematuria. 03/29/2023-- He presents today for an evaluation of microscopic hematuria. He denies gross hematuria. He denies irritative urinary symptoms. He has a history HHT, Hereditary hemorrhagic telangiectasia, a blood disorder. He is also followed by endocrine for a pituitary tumor. He was evaluated by Dr. Richardson few years ago and states he was told at that time, the evaluation was negative. Evaluation today--UA-- leukocytes: negative; blood: 1+. 11/16/2022-- PSA screening result -- 0.9 CT UROGRAM-- 01/24/21: Urinary tract was WNL. Plan: Renal US prior was ordered. Urine for cytology prior was ordered. The patient will follow up for office cystoscopy. [facility] Medical History History of COVID-19 Cardiomyopathy HHT (hereditary hemorrhagic telangiectasia) Low back pain radiating to both legs History of pituitary tumor Pre-op evaluation Osteopenia Macroprolactinoma Prolactinoma Surgical History Hx of meniscectomy of right knee History of repair of ACL Hx of cataract extraction Hx of blepharoplasty Hx of eye surgery Hx of tonsillectomy Family History Father Cancer Mother Diabetes Social History Household Members: Spouse Housing: House Patient Tobacco Use Status: Never used Tobacco e-Cigarette/Vaping Use: Never Used Second Hand Smoke Exposure: No service: Yes Current occupational status: employed and retired 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 - [employer] Current occupational exposures/hazards: No Cognitive needs: No Hearing needs: No Vision needs: No Review of Systems Const All systems reviewed & are unremarkable except as noted in HPI and below Reports no additional complaints Eyes Reports no additional complaints ENT Reports no additional complaints Card Denies dyspnea Resp Denies cough and Denies dyspnea GI Reports no additional complaints Musc Reports no additional complaints Skin/Breast Denies rash and Denies unusual bruising Neuro Reports no additional complaints Psych Reports no additional complaints Endo Reports no additional complaints Ramiro/Lymph Reports no additional complaints Aller/Immun Reports no additional complaints Physical Exam Const General: healthy appearing, no acute distress and well developed Orientation/consciousness: patient oriented x3 HEENT Head: Yes normocephalic and Yes atraumatic Eyes Conjunctivae: conjunctivae normal Neck Neck: Yes normal visual inspection Chest Chest palpation & inspection: normal inspection of the chest Resp Effort & Inspection: normal respiratory effort Cardio Rate: regular rate GI Inspection: Yes normal to inspection Skin General skin exam: no rashes or lesions noted Neuro General: patient oriented x3 Extrem General: No pedal edema Psych Appearance: grossly normal Affect: normal affect Results AMB Urinalysis, Automated UA Leukoctes 0 Marquis/uL Last Edit by SUZI Andrade on 03/29/23 13:22 UA Nitrite Negative Last Edit by SUZI Andrade on 03/29/23 13:22 UA Urobilinogen 0.2 mg/dL Last Edit by SUZI Andrade on 03/29/23 13:2 2 UA Protein 0 mg/dL Last Edit by SUZI Andrade on 03/29/23 13:22 UA pH 6.0 Last Edit by SUZI Andrade on 03/29/23 13:22 UA Blood 200 Diogenes/uL Last Edit by SUZI Andrade on 03/29/23 13:22 3+ Renée Dunne 03/29/23 13:22 UA Specific [place] 1.025 Last Edit by SUZI Andrade on 03/29/23 13: 22 UA Ketone Negative Last Edit by SUZI Andrade on 03/29/23 13:22 UA Bilirubin 0 mg/dL Last Edit by SUZI Andrade on 03/29/23 13:22 UA Glucose 0 mg/dL Last Edit by SUZI Andrade on 03/29/23 13:22 Results Reviewed Results Reviewed: Laboratory Last Values Urine pH (Auto) 6.0 03/29/23 13:21 Specific [place] (Auto) 1.025 03/29/23 13:21 Urine Protein (Auto) 0 mg/dL 03/29/23 13:21 Glucose (UA)(Auto) 0 mg/dL 03/29/23 13:21 Urine Ketones (Auto) Negative 03/29/23 13:21 Urine Blood (Auto) 200 Diogenes/uL 03/29/23 13:21 Urine Nitrite (Auto) Negative 03/29/23 13:21 Urine Bilirubin (Auto) 0 mg/dL 03/29/23 13:21 Urine Urobilinogen (Auto) 0.2 mg/dL 03/29/23 13:21 Leukocyte Esterase (Auto) 0 Marquis/uL 03/29/23 13:21 Date of Service: 01/24/21 CT ABDOMEN AND PELVIS WITHOUT AND WITH CONTRAST FINDINGS: LUNG BASES: The lung bases are clear. The heart size is normal. LIVER, GALLBLADDER, AND BILIARY TREE: The liver is normal in size, shape, and attenuation. No focal hepatic lesion or biliary ductal dilatation is present. The gallbladder is unremarkable with no evidence of radiopaque gallstones, gallbladder wall thickening, or obvious pericholecystic inflammatory changes. PANCREAS: Unremarkable. SPLEEN: Unremarkable. ADRENAL GLANDS: Unremarkable. KIDNEYS AND URETERS: On precontrast exam there is no radiopaque renal calculi post contrast. Both kidneys nephrograms are symmetrical, normal size and contour. There is symmetrical bilateral nephrograms with normal cortical thickening. Left kidney measures 11.7 cm in length and right kidney measures 10.9 cm in length. There is good opacification of bilateral kidney pelvis and ureters without any intraluminal filling defect. BLADDER: The bladder is incompletely distended with excreted urinary contrast. No bladder wall thickening or enhancing mass seen. GASTROINTESTINAL TRACT: There is scattered stool and gas seen throughout the colon without significant distention. The small bowel loops are normal caliber. The stomach is nondistended. No free air or free fluid seen. ABDOMINAL WALL: No significant hernia is appreciated. LYMPH NODES: Normal. VASCULAR: Unremarkable. PELVIC VISCERA: There is no free air or free fluid. The prostate gland is mildly enlarged with central gland calcification. OSSEUS STRUCTURES: There is levoscoliosis with degenerative disc changes at virtually every disc level and moderate spondylosis right L2-L3, left L4-L5 and L5/S1 disc levels. No lytic or sclerotic process seen. IMPRESSION: No radiopaque urolith or hydroureteronephrosis. No renal mass or cyst seen. No evidence of hydronephrosis. The bladder is decompressed but unremarkable. Degenerative disc changes with levoscoliosis dorsolumbar spine and moderate spondylosis. Assessment & Plan Assessment & Plan (1) Hematuria: Code(s): R31.9 - Hematuria, unspecified (2) HHT (hereditary hemorrhagic telangiectasia): Code(s): I78.0 - Hereditary hemorrhagic telangiectasia Plan Renal US prior was ordered. Urine for cytology prior was ordered. The patient will follow up for office cystoscopy. Orders: Orders Urine Cytology 03/29/23 R31.9 - Hematuria, unspecified AMB Urinalysis Automated 03/29/23 Z13.9 - Encounter for screening, unspecified US renal BI 03/29/23 R31.9 - Hematuria, unspecified Patient Instructions: The patient had an opportunity to ask questions regarding treatment plan. All questions were answered. Imaging, Laboratory studies and physical exam results were discussed and reviewed in detail. No major barriers to understanding were identified. The patient expressed understanding and agreement with the above treatment plan. The patient is aware they should contact our office by phone for worsening of their current condition or the appearance of new symptoms. Compliance is encouraged with any medications and followup testing that is ordered. It is a privilege to be allowed the opportunity to participate in the urologic care of your patient. If you have any questions or concerns regarding treatment for the above conditions please do not hesitate to contact me. The office telephone contact is [phone]. This note is constructed in part using voice recognition software. While every effort has been made to ensure accuracy casket assembler metal errors may have been included. Yours sincerely, Amaris Snider MD Coding Level of Care Code New Pt Level 4 (70125) Diagnoses Hematuria R31.9 HHT (hereditary hemorrhagic telangiectasia) I78.0
== END 2023-03-29 13:36 | disposition home or self-care (01) ==
PROVIDERS: PCP Nurse Practitioner Family; Visit Provider Urology
DX: R31.9 Hematuria, unspecified (principal); I78.0 Hereditary hemorrhagic telangiectasia
CPT/HCPCS: 99204

== ENCOUNTER 2023-05-16 14:51 | Outpatient (AMB) | payer MEDICARE, SELFPAY ==
[2023-05-16 15:01] VITALS: BP 130/80; PULSE 64; O2SAT 98; BMI 29.6
--- NOTE | 2023-05-16 15:01 | A.OFFPC_ITS ---
Vital Signs 05/16/23 15:01 Height 5 ft 11 in Weight 212 lb BMI 29.6 BP 130/80 Blood Pressure Location Rt brachial Position Sitting Pulse 64 Pulse Source Pulse Oximeter Pulse Oximetry (%) 98 Oxygen Delivery Method Room Air Intake Visit Reasons: 6 Month follow up Intake Note: Patient here for follow up. Allergies aspirin [ASPIRIN] Allergy (Intermediate, Verified 05/16/23 15:02) heartburn/hives meperidine [Demerol] Adverse Reaction (Intermediate, Verified 05/16/23 15:02) GI upset Medication List - Last Reconciled 05/16/23 by TITA Tsai atorvastatin 20 mg PO BEDTIME cabergoline 0.25 mg (1/2 x 0.5 mg) PO .once a week ferrous sulfate 324 mg PO DAILY Tobacco use date assessed: 11/14/22 Fall risk assessment: No Falls in past year Last assessed Fall Risk: 05/16/23 Dental Screening Dental Screen Date: 05/16/23 Did you have a dental visit in the last 12 months?: Yes Did you have a dental problem in the last 6 months where you did not have access to dental care?: No Was dental information given to patient?: Patient has dentist HPI 6 Month follow up HPI Details left knee pain, more medial aspect. He cannot one event that caused it. Denies any excessive swelling or erythema. WIll get an XR and most likely will refer to PT. [facility] Medical History History of COVID-19 Cardiomyopathy HHT (hereditary hemorrhagic telangiectasia) Low back pain radiating to both legs History of pituitary tumor Pre-op evaluation Osteopenia Macroprolactinoma Prolactinoma Surgical History Hx of meniscectomy of right knee History of repair of ACL Hx of cataract extraction Hx of blepharoplasty Hx of eye surgery Hx of tonsillectomy Family History Father Cancer Mother Diabetes Social History Household Members: Spouse Housing: House Comment: medicated, see MAR Patient Tobacco Use Status: Never used Tobacco e-Cigarette/Vaping Use: Never Used Second Hand Smoke Exposure: No service: Yes Current occupational status: employed and retired 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 Yaya Elizabeth, Isabella Li, Tan Christian and colleagues, with an educational gen from [employer]. Physical exam (Primary Care) Vital Signs: Last Vital Signs Pulse 64 05/16/23 15:01 BP 130/80 05/16/23 15:01 Pulse Ox 98 05/16/23 15:01 Oxygen Delivery Method Room Air 05/16/23 15:01 BMI result Body Mass Index 29.6 Tobacco/Smoking Status: Tobacco use Status Tobacco use date assessed 11/14/22 05/16/23 15:02 Patient Tobacco Use Status Never used Tobacco 05/16/23 15:02 e-Cigarette/Vaping Use Never Used 05/16/23 15:02 Thrive Assessment: Date of Thrive Assessment Date Thrive assessed 11/13/21 05/16/23 15:02 Const General: cooperative and healthy appearing Resp Effort & Inspection: normal respiratory effort Auscultation: clear to auscultation bilaterally Cardio Rate: regular rate Rhythm: regular rhythm Heart sounds: S1 normal heart sound present, S2 normal heart sound present and Murmur heart sound present (systolic) Extrem Left lower extremity: knee (neg lachmans, + crepitus) Details: normal to inspection and normal ROM; no swelling and Eloina's Test not performed Psych Appearance: grossly normal Mental Status: mental status grossly normal Speech and movement: Normal speech and movement present Affect: normal affect Attitude: cooperative Thought process: Normal thought process present Thought content: Normal thought content present Insight: Good insight present (Psych) Judgement: Good judgement present (Psych) Assessment and Plan Assessment & Plan (1) Left knee pain: Code(s): M25.562 - Pain in left knee Plan: XR and PT Coding Level of Care Code Est Pt Level 3 (50687) Diagnoses Left knee pain M25.562
== END 2023-05-16 15:50 | disposition home or self-care (01) ==
PROVIDERS: PCP Nurse Practitioner Family; Visit Provider Nurse Practitioner Family
DX: M25.562 Pain in left knee (principal)
CPT/HCPCS: 99213

== ENCOUNTER 2023-05-16 15:38 | Outpatient (REF) | payer MEDICARE, SELFPAY ==
--- NOTE | ~2023-05-16 | XR_ITS ---
EXAMINATION: XR KNEE, LEFT CLINICAL INFORMATION: Pain in the left knee COMPARISON: Left knee June 23, 2014 TECHNIQUE: Four views of the left knee. FINDINGS: No fracture or joint effusion. Alignment is anatomic. Joint spaces are maintained. No abnormal soft tissue calcification. XR/XR knee LT 4V IMPRESSION: Normal left knee.
== END 2023-05-16 15:39 | disposition home or self-care (01) ==
LOC: HO.HMGCX 15:38
PROVIDERS: PCP Nurse Practitioner Family; Visit Provider Nurse Practitioner Family
DX: M25.562 Pain in left knee (principal)
CPT/HCPCS: 73564

== ENCOUNTER 2023-11-01 09:35 | Outpatient (REF) | payer MEDICARE, SELFPAY ==
[2023-11-01 13:26] LABS: MANUAL DIFF FLAG NO
[2023-11-01 13:30] LABS: Appearance Urine Turbid; Color Urine Yellow; Glucose Urine UA Negative (Negative); Leukocyte Esterase Urine Negative (Negative); Nitrite Urine Negative (Negative); PH 5.5 (5.0-9.0); Specific Gravity - Urine 1.015 (1.005-1.025); UMIC TRIGGER UACC YES; Urine Blood Small (1+) (Negative); Urine Ketones Negative (Negative); Urine Protein Negative (Neg-Trace)
[2023-11-01 13:42] LABS: Bacteria Urine None Seen (None Seen); Hyaline Casts Urine 0-2 /LPF (0-2); RBC Urine 0-2 /HPF (0-2); Squamous Epithelial Cell Urine 0-2 /HPF (0-2); WBC Urine 0-5 /HPF (0-5)
[2023-11-01 13:49] LABS: Basophils Percent Auto 0.5 % (0-2); Eosinophils Absolute Auto 0.2 X10*3/uL (0.0-0.4); Eosinophils Percent Auto 3.8 % (0-4); Hematocrit 37.4 % (42.0-52.0); Hemoglobin 11.6 g/dl (14.0-18.0); Imm Gran Abs Auto 0.01 X10*3/uL (0.00-0.03); Imm Gran Pct Auto 0.2 % (0.0-0.4); Lymphocytes Absolute Auto 1.3 X10*3/uL (1.2-4.9); Lymphocytes Percent Auto 23.3 % (20-40); Mean Corpuscular Hemoglobin 25.5 pg (27.0-33.0); Mean Corpuscular Volume 82.2 fL (80.0-98.0); Mean Platelet Volume 10.3 fL (9.4-12.4); Monocytes Absolute Auto 0.5 X10*3/uL (0.1-1.2); Monocytes Percent Auto 9.6 % (2-11); Neutrophils Absolute Auto 3.5 x10*3/uL (2.0-8.3); Neutrophils Percent Auto 62.6 % (45-73); Platelet Count 211 X10*3/uL (160-400); Red Blood Count 4.55 X10*6/uL (4.60-5.80); Red Cell Distribution Width 15.5 % (11.0-16.0); White Blood Count 5.5 X10*3/uL (4.8-10.8)
[2023-11-01 14:24] LABS: Alanine Aminotransferase 24 U/L (0-40); Albumin Level 4.5 g/dL (3.5-5.0); Alkaline Phosphatase 45 U/L (39-117); Anion Gap 12 (12-20); Aspartate Amino Transferase 32 U/L (5-37); Bilirubin Total 1.5 mg/dL (0.0-1.0); Blood Urea Nitrogen 14 mg/dL (9-16); Calcium 9.2 mg/dL (8.4-10.2); Carbon Dioxide 26 mmol/L (22-29); Chloride 108 mmol/L (96-108); Cholesterol 130 mg/dL (<200); Estimated Glomerular Filt Rate > 60; Glucose Fasting 102 mg/dL (60-99); HDL Cholesterol 49 mg/dL (>40); Iron 86 mcg/dL (45-160); LDL Cholesterol Calculated 63 mg/dL (<100); Percent Iron Saturation 21 % (15-50); Potassium 4.3 mmol/L (3.3-5.1); Sodium 142 mmol/L (135-145); Total Iron Binding Capacity 405 mcg/dL (228-428); Triglycerides 91 mg/dL (<150); Unsaturated Iron Binding 319 ug/dL
[2023-11-01 14:44] LABS: TSH reflex Free T4 1.16 uIU/mL (0.32-4.0); Vitamin D 25-OH Total 55.2 ng/mL (>30)
[2023-11-01 14:45] LABS: Ferritin 17 ng/mL (20-250)
== END 2023-11-01 09:36 | disposition home or self-care (01) ==
LOC: HO.HMGCLDS 09:35
PROVIDERS: PCP Nurse Practitioner Family; Visit Provider Internal Medicine
DX: D50.9 Iron deficiency anemia, unspecified (principal); E78.5 Hyperlipidemia, unspecified; Z12.5 Encounter for screening for malignant neoplasm of prostate; E55.9 Vitamin D deficiency, unspecified
CPT/HCPCS: 36415; 80053; 80061; 81001; 82306; 82728; 83540; 84153; 84443; 85025

== ENCOUNTER 2023-11-19 15:26 | Outpatient (AMB) | payer MEDICARE, SELFPAY ==
--- NOTE | 2023-11-19 15:30 | MHC.PC.OV ---
Vital Signs 11/19/23 15:33 11/19/23 16:51 Height 5 ft 11 in Weight 208 lb BMI 29.0 BP 136/90 H 126/88 Blood Pressure Location Lt brachial Lt brachial Position Sitting Sitting Pulse 68 Pulse Source Pulse Oximeter Pulse Oximetry (%) 98 Oxygen Delivery Method Room Air Intake Visit Reasons: PE Intake Note: Patient here for physical exam. Colon: overdue Allergies aspirin [ASPIRIN] Allergy (Intermediate, Verified 11/19/23 15:35) heartburn/hives meperidine [Demerol] Adverse Reaction (Intermediate, Verified 11/19/23 15:35) GI upset Medication List - Last Reconciled 11/19/23 by TITA Tsai atorvastatin 20 mg PO BEDTIME cabergoline 0.25 mg (1/2 x 0.5 mg) PO QWEEK ferrous sulfate 324 mg PO DAILY Tobacco use date assessed: 11/19/23 Fall risk assessment: No Falls in past year Last assessed Fall Risk: 11/19/23 Dental Screening Dental Screen Date: 11/19/23 Did you have a dental visit in the last 12 months?: Yes Did you have a dental problem in the last 6 months where you did not have access to dental care?: No Was dental information given to patient?: Patient has dentist HPI PE HPI Details Pt is here for a PE. Labs were already performed. PSA is up to date. Pt will be due for a colon screen in April, will place referral in now. Pt has a hx of ascending aorta dilatation. Will order echo to monitor this. Pt is seeing hematology due to iron deficiency. Pt was noted to have blood in urine. Pt has seen urology for this. [facility] Medical History History of COVID-19 Cardiomyopathy HHT (hereditary hemorrhagic telangiectasia) Low back pain radiating to both legs History of pituitary tumor Pre-op evaluation Osteopenia Macroprolactinoma Prolactinoma Surgical History Hx of meniscectomy of right knee History of repair of ACL Hx of cataract extraction Hx of blepharoplasty Hx of eye surgery Hx of tonsillectomy Family History (Reviewed 11/19/23 @ 16:15 by [facility]) Father Cancer Mother Diabetes Social History Household Members: Spouse Housing: House Comment: medicated, see MAR Patient Tobacco Use Status: Never used Tobacco e-Cigarette/Vaping Use: Never Used Second Hand Smoke Exposure: No service: Yes Current occupational status: employed and retired 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 32531 - PHQ-9 Billing: Patient declined-do not bill Source: Developed by Drs. Yaya Elizabeth, Isabella Li, Tan Christian and colleagues, with an educational gen from [employer] Thrive Questionnaire Date Thrive assessed: 11/19/23 I am a: Patient What is your living situation today?: I choose not to answer this question Within the past 12 months, did the food you bought not last and you didn't have the money to get more?: Never true Within the past 12 months, did you worry whether your food would run out before you got money to buy more?: Never true Do you have trouble paying for medicines?: I choose not to answer this question Do you have trouble getting transportation to medical appointments?: I choose not to answer this question Do you have trouble paying your heating and electricity bill?: I choose not to answer this question Do you have trouble taking care of your child, family member or friend?: I choose not to answer this question Do you have trouble with day-to-day activities such as bathing, preparing meals, shopping, managing finances, etc.?: I choose not to answer this question Are you currently unemployed and looking for a job?: I choose not to answer this question Are you interested in more education?: I choose not to answer this question Please select the resources that you would like help with: None Currently or been in a relationship where the following occur: I choose not to answer THRIVE Score: 0 AUDIT C Alcohol Use Questionnaire (AUDIT-C) 1. How often do you have a drink containing alcohol?: Never 3. How often do you have six or more drinks on one occasion?: Never Total Score: 0 Score Reviewed/Action Taken: No MARK-7 AMB Questionnaire MARK-7 Date MARK - 7 assessed: 11/19/23 Source: Developed by Drs. Yaya Elizabeth, Isabella Li, Tan Christian and colleagues, with an educational gen from [employer] MARK-7 Assessment Billing MARK-7 Assessment Tool: pt declined-do not bill Review of Systems Const Denies chills and Denies fever(s) Eyes Denies blurry vision ENT Denies vertigo, Denies dizziness and Denies sore throat Card Denies chest pain at rest, Denies chest pain with activity, Denies diaphoresis, Denies dyspnea and Denies dyspnea on exertion Resp Denies cough, Denies dyspnea, Denies dyspnea on exertion and Denies wheezing GI Denies abdominal pain, Denies melena, Denies hematochezia, Denies constipation, Denies diarrhea and Denies loose stools Denies hematuria Musc Denies numbness and Denies tingling Skin/Breast Denies lesions Neuro Denies vertigo, Denies dizziness, Denies numbness and Denies tingling Psych Denies anxiety, Denies depression, Denies homicidal ideation, Denies suicidal ideation and Denies other (substance abuse) Aller/Immun Denies wheezing Physical exam (Primary Care) Vital Signs: Last Vital Signs Pulse 68 11/19/23 15:33 BP 126/88 11/19/23 16:51 Pulse Ox 98 11/19/23 15:33 Oxygen Delivery Method Room Air 11/19/23 15:33 BMI result Body Mass Index 29.0 Tobacco/Smoking Status: Tobacco use Status Tobacco use date assessed 11/19/23 11/19/23 15:38 Patient Tobacco Use Status Never used Tobacco 11/19/23 15:32 e-Cigarette/Vaping Use Never Used 11/19/23 15:32 Thrive Assessment: Date of Thrive Assessment Date Thrive assessed 11/19/23 11/19/23 16:13 Currently or been in a relationship where the following occur: I choose not to answer Const General: cooperative Nutritional Appearance: well nourished Orientation/consciousness: patient oriented x3 HENMT Head: Yes normal to inspection, Yes normocephalic and Yes atraumatic Ears: TM's normal bilaterally Eyes General: appearance normal, both eyes and all related structures Alignment and Position: alignment normal and position normal Neck Neck: Yes normal visual inspection and Yes no lymphadenopathy Thyroid: Thyroid normal Resp Effort & Inspection: normal respiratory effort Auscultation: clear to auscultation bilaterally Cardio Rate: regular rate Rhythm: regular rhythm Heart sounds: S1 normal heart sound present, S2 normal heart sound present and Murmur heart sound present systolic GI Palpation (GI): Soft to palpation and nontender Auscultation: normal bowel sounds Male General Exam: Yes normal external exam Penis: normal penis Scrotum: scrotum normal, testes descended bilaterally and no inguinal hernias Testes: no testicular mass Skin Other: left nose, with macular darker lesion Rashes: no rashes Neuro General: patient oriented x3, moves all extremities, no focal motor deficits and deep tendon reflexes 2+ bilaterally Romberg Test: Negative Psych Appearance: grossly normal Mental Status: mental status grossly normal Speech and movement: Normal speech and movement present Affect: normal affect Attitude: cooperative Thought process: Normal thought process present Thought content: Normal thought content present Insight: Good insight present (Psych) Judgement: Good judgement present (Psych) Assessment and Plan Assessment & Plan (1) Screening for colon cancer: Code(s): Z12.11 - Encounter for screening for malignant neoplasm of colon Plan: Referred to GI (2) Ascending aorta dilatation: Code(s): I77.810 - Thoracic aortic ectasia Plan: Echo ordered (3) Skin lesion: Code(s): L98.9 - Disorder of the skin and subcutaneous tissue, unspecified Plan: Referred to derm (4) Physical exam: Code(s): Z00.00 - Encounter for general adult medical examination without abnormal findings Plan The patient agreed to the use of a regional medical director for this encounter. Scribed for TITA Sheets by Margie Miranda regional medical director, on 11/19/2023 at 16:00 EST. Orders: Orders CA echo transthoracic complete Today I77.810 - Thoracic aortic ectasia Referrals Gastroenterology Referral Z12.11 - Encounter for screening for malignant neoplasm of colon Dermatology Referral L98.9 - Disorder of the skin and subcutaneous tissue, unspecified Coding Level of Care Code Est Pt Prev Care >65y(18245) Diagnoses Screening for colon cancer Z12.11 Ascending aorta dilatation I77.810 Skin lesion L98.9 Physical exam Z00.00
[2023-11-19 15:33] VITALS: BP 136/90; PULSE 68; O2SAT 98; BMI 29.0
[2023-11-19 16:51] VITALS: BP 126/88
== END 2023-11-19 16:56 | disposition home or self-care (01) ==
PROVIDERS: PCP Nurse Practitioner Family; Visit Provider Nurse Practitioner Family
DX: Z12.11 Encounter for screening for malignant neoplasm of colon (principal); I77.810 Thoracic aortic ectasia; L98.9 Disorder of the skin and subcutaneous tissue, unspecified; Z00.00 Encounter for general adult medical examination without abnormal findings
CPT/HCPCS: 99397

== ENCOUNTER 2023-11-28 07:51 | Outpatient (REF) | payer MEDICARE, SELFPAY ==
--- NOTE | ~2023-11-28 | MR_ITS ---
EXAMINATION: MR ABDOMEN WITHOUT AND WITH CONTRAST CLINICAL INFORMATION: Unspecified liver disease. Follow-up arterially hyperenhancing foci in the liver. COMPARISON: CTA chest 12/20/2022. CT urogram 01/24/2021. Abdominal MRI 07/07/2020. TECHNIQUE: MR abdomen was performed without and with use of 10 mL intravenous Gadavist gadolinium contrast. Postcontrast images are performed in multiphase dynamic sequences. Imaging was performed in 3 planes. FINDINGS: LUNG BASES: The visualized lung bases are unremarkable. LIVER, GALLBLADDER, AND BILIARY TREE: The liver is normal in size, signal and morphology. Redemonstration of numerous arterially hyperenhancing lesions that are not significantly changed compared to MRI from 07/07/2020, for instance a 1.1 cm lesion in the hepatic dome (image 30 series 100) and a 1.2 cm lesion in the inferior most right hepatic lobe (image 77 series 100). As before, these do not demonstrate correlate signal abnormality on the later postcontrast images or on the precontrast images. The gallbladder is unremarkable with no evidence of gallbladder wall thickening, or obvious pericholecystic inflammatory changes. No biliary ductal dilatation. PANCREAS: Unremarkable. SPLEEN: Normal. ADRENAL GLANDS: Normal. KIDNEYS AND URETERS: The kidneys are normal in size, shape, and enhance symmetrically. A few simple-appearing subcentimeter bilateral cortical cysts are seen, for which no imaging follow-up is recommended. No hydronephrosis. No perinephric stranding. GASTROINTESTINAL TRACT: No bowel obstruction. No ascites or fluid collection. ABDOMINAL WALL: No significant hernia is appreciated. LYMPH NODES: No lymphadenopathy. Stable nonspecific mild fatty haziness of the central mesentery. VASCULAR: Unremarkable. OSSEOUS STRUCTURES: No acute or aggressive-appearing osseous findings. MR/MR abdomen wo/w con IMPRESSION: Numerous arterially hyperenhancing liver lesions are stable compared to MRI abdomen 07/07/2020; these fade to become isointense to liver background in additional sequences. Stability since 2020 is reassuring; these could represent focal nodular hyperplasia or vascular abnormalities. No suspicious liver lesion.
[2023-11-28] MEDS: gadobutroL 10 ML VIAL IVPUSH (09:05)
== END 2023-11-28 07:52 | disposition home or self-care (01) ==
LOC: HO.MRI 07:51
PROVIDERS: PCP Nurse Practitioner Family; Visit Provider Nurse Practitioner Family
DX: K76.9 Liver disease, unspecified (principal)
CPT/HCPCS: 74183; A9585

== ENCOUNTER 2023-12-09 07:30 | Outpatient (RCR) | payer MEDICARE, SELFPAY ==
[2023-11-18 10:28] VITALS: BP 149/78; PULSE 55; RESP 16; TEMP 36.9; O2SAT 98
[2023-11-18] MEDS: Iron Sucrose Complex 200 MG in 0.9 % Sodium Chloride 100 ML 440 MG IV (10:39)
[2023-11-25 08:00] VITALS: BMI 28.2
[2023-11-25 08:05] VITALS: BP 131/77; PULSE 54; RESP 16; TEMP 37; O2SAT 95
[2023-11-25] MEDS: Iron Sucrose Complex 200 MG in 0.9 % Sodium Chloride 100 ML 440 MG IV (08:30)
[2023-11-25] MEDS: 0.9 % Sodium Chloride Flush 10 ML SYRINGE 5 ML IVFLUSH (08:49)
[2023-12-02 07:32] VITALS: BP 136/72; PULSE 50; RESP 16; TEMP 36.9; O2SAT 96
[2023-12-02] MEDS: Iron Sucrose Complex 200 MG in 0.9 % Sodium Chloride 100 ML 440 MG IV (07:36)
[2023-12-09 07:27] VITALS: BP 157/92; PULSE 58; RESP 16; TEMP 36.7; O2SAT 98
[2023-12-09] MEDS: Iron Sucrose Complex 200 MG in 0.9 % Sodium Chloride 100 ML 440 MG IV (07:37)
[2023-12-09] MEDS: 0.9 % Sodium Chloride Flush 10 ML SYRINGE 5 ML IVFLUSH (07:59)
== END 2023-12-09 08:06 | disposition home or self-care (01) ==
LOC: HO.INF 07:30
PROVIDERS: Visit Provider Internal Medicine
DX: D50.9 Iron deficiency anemia, unspecified (principal)
CPT/HCPCS: 96365; J1756

== ENCOUNTER → 2023-12-18 07:49 | Outpatient (REF) | payer MEDICARE, SELFPAY ==
--- NOTE | 2023-12-18 07:51 | CA_ITS ---
Transthoracic Echocardiogram Patient (Last, First, Middle): Justice Amos R Gender: Male Date of : 1950 Age: 73 Procedure Date: 12/18/2023 Procedure Type: Transthoracic Echocardiogram Location: OP Height: 180.34 cm Weight: 92.99 kg BSA: 2.13 m2 Heart Rate: bpm BP: 130 / 78 mmHg Email Marketing Coordinator: TO Referring MD: Stevan Soto [facility] Symptoms: I77.810 - Thoracic aortic ectasia Study Quality: Fair Conclusions: - 1. Normal LV ejection fraction at 60-65% with mild LVH with impaired relaxation filling pattern 2. Mild aortic regurgitation secondary to ascending aortic pathology 3. Moderate ascending aortic enlargement at 4.5 cm 4. No gross pericardial effusion Findings Left Ventricle Normal left ventricular size and systolic function. There is mildly increased left ventricular wall thickness. The visually estimated ejection fraction is between 60-65%. Spectral Doppler is indicative of an impaired relaxation filling pattern. E/E prime ratio is between 8 and 15 consistent with indeterminate filling pressures. Right Ventricle Normal right ventricular cavity size and systolic function. Atria The left atrium is likely dilated. There is lipomatous hypertrophy of the interatrial septum. There is a mobile atrial septum noted. Interatrial shunt cannot be excluded. The right atrium is normal in size. Aortic Valve Normal aortic valve structure and function. There is no aortic valve stenosis. There is mild aortic valve regurgitation. Mitral Valve Normal mitral valve structure and function. There is trace mitral valve regurgitation. There is no mitral valve stenosis. Pulmonic Valve The pulmonic valve is likely normal. Tricuspid Valve Normal tricuspid valve structure. There is trace tricuspid valve regurgitation. The right ventricular systolic pressure is normal. The right ventricular systolic pressure is 20 mmHg. Normal right atrial pressure. There is no evidence of pulmonary hypertension. Great Vessels The pulmonary artery was not well visualized. There is moderate dilatation of the ascending aorta measuring 4.50 cm. Venous The inferior vena cava is normal in size and collapses greater than 50% with inspiration. Pericardium/Pleural There is no evidence of pericardial effusion. Prior Study Comparison No significant change compared to prior study dated: 01/23/2022. Measurements 2D Linear Measurements IVSd: 1.20 0.6-0.9/0.6-1.0 cm LVIDd: 4.41 3.9-5.3/4.2-5.9 cm LVIDd Index: 2.07 2.4-3.2/2.2-3.1 cm/m2 LVIDs: 2.99 2.0-3.6 cm LVPWd: 1.12 0.7-1.1 cm LA Diam: 3.60 2.7-3.8/3.0-4.0 cm LAIDs Index: 1.69 1.5-2.3 cm/m2 LV Mass: 227.82 67-162/88-224 g LV Mass Index: 106.96 43-95/49-115 g/m2 LVOT Diam: 2.40 3.0+(-)1.3 cm 2D Systolic Function EF 4C: 65.50 >55% EF 2C: 63.90 >55% EF BiP: 64.80 >55% Mitral Valve MV Pk E: 0.66 MV PK A: 0.75 MV Decel Time: 269.00 E/A: 0.90 E'Lateral: 5.98 E'Medial: 4.57 E/E' Med: 14.40 E/E' Lat: 11.00 PHT: 79.00 MVA PHT: 2.78 Decel [place]: 2.43 Aortic Valve AoV Pk [place]: 1.92 AoV Mn [place]: 1.32 AoV VTI: 0.42 AoV Pk Grad: 15.00 Aov Mn Grad: 8.00 MORALES Cont.VTI: 3.94 LVOT LVOT Pk [place]: 1.62 LVOT Mn [place]: 1.06 LVOT VTI: 0.37 LVOT Pk Grad: 10.00 LVOT Mn Grad: 5.00 LVOT Diam: 2.40 LVOT Area: 4.52 Diastolic Function MV Pk E: 0.66 MV Pk A: 0.75 E/A: 0.90 E'Medial: 4.57 E/E' Med: 14.40 E' Laterial: 5.98 E/E' Lat: 11.00 Right Ventricle TAPSE (mm): 26.70 TVS' [place]: 11.50 Tricuspid Valve TR Pk [place]: 2.08 TR Pk Grad: 17.00 RA Press: 3.00 RVSP: 20.00 Great Vessels Aorta Sinus of Valsalva: 4.18 2.0-3.5 cm Ao Asc: 4.50 2.1-3.4 cm Ao Arch: 3.40 Updated in Other Vendor System with Status of Final Gonzalo Ray MD electronically signed on 12/18/2023 11:46:14 AM with status of Final
== END ==
LOC: HO.CARD 07:49
PROVIDERS: PCP Nurse Practitioner Family; Visit Provider Nurse Practitioner Family
DX: I77.810 Thoracic aortic ectasia (principal)
CPT/HCPCS: 93306

== ENCOUNTER → 2023-12-18 07:51 | Outpatient (BNV) | payer MEDICARE, SELFPAY | PROVIDERS: PCP Nurse Practitioner Family; Visit Provider Internal Medicine Cardiovascular Disease | DX: I35.1 Nonrheumatic aortic (valve) insufficiency (principal) | CPT/HCPCS: 93306 ==

== ENCOUNTER 2024-01-16 11:04 | Outpatient (AMB) | payer MEDICARE, SELFPAY ==
--- NOTE | 2024-01-16 11:13 | A.OFFVIS_ITS ---
Vital Signs 01/16/24 11:14 Height 5 ft 11 in Weight 210 lb 12.191 oz BMI 29.4 BP 139/85 Blood Pressure Location Rt brachial Position Sitting Pulse 54 Intake Visit Reasons: colonoscopy screening Intake Note: Justice presents to in office today for colonoscopy screening. CC: Patient denies having any GI symptoms or concerns. 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 He has had a cold over the past week and is recovering. No FHX of liver disease. No abd pain, no concerning GI sx no alarm sx. We will get the fractionated bili and return in 3 weeks. ROV 3 weeks. (2) Tubular adenoma of colon: ?Comment: Sessile polyp 2021 scope large in size repeat in 3 years ?Code(s): D12.6 - Benign neoplasm of colon, unspecified ? ? ? Orders: Orders Bilirubin Direct 11/26/22 R17 - Unspecified jaundice ? Bilirubin Total 11/26/22 R17 - Unspecified jaundice ? LABS: Laboratory Tests 11/01/23 09:55 WBC 5.5 Hgb 11.6 L Hct 37.4 L MCV 82.2 MCH 25.5 L MCHC 31.0 Plt Count 211 Estimated GFR > 60 AST 32 ALT 24 Alkaline Phosphatase 45 TSH 1.16 COLONOSCOPY 04/2022 Findings: Terminal Ileum-normal Cecum:normal Ascending Colon: normal Transverse Colon - 8-9 mm sessile polyp removed with cold snare Descending Colon:normal Sigmoid Colon: normal Rectum: Retroflexion with medium sized internal hemorrhoids, grade I Anorectum - normal Impression and Post Procedure Diagnosis: polyp internal hemorrhoids fair prep Plan: High fiber diet leaflet Avoid straining at stool, epsom salts and sitz bath, anusol supps or cream Repeat Colonoscopy in 2-3 years or earlier if clinically indicated, review prep next time. Received: 05/16/22 Diagnosis Colon, transverse, polypectomy: Tubular adenoma; negative for high-grade dysplasia or carcinoma TODAY'S VISIT Patient appears to be here today for repeat colonoscopy His father had CRC. He denies any bowel or upper GI problems. He has cardiomyopathy and is seen by Dr. Ray, he denies any respiratory problems. There are no prior problems with anesthesia or sedation. NO ID problems. Again, he has a family history of colon cancer and he himself has had polyps in the past. [facility] Medical History (Updated 01/16/24 @ 11:21 by GERONIMO Roberts) Encounter for screening laboratory testing for COVID-19 virus Nasal congestion Elevated bilirubin Liver lesion Right knee pain Tear of medial meniscus of right knee Physical exam Screening PSA (prostate specific antigen) Physical exam Screening for colon cancer History of COVID-19 Cardiomyopathy HHT (hereditary hemorrhagic telangiectasia) Low back pain radiating to both legs History of pituitary tumor Pre-op evaluation Osteopenia Macroprolactinoma Prolactinoma Surgical History Hx of meniscectomy of right knee History of repair of ACL Hx of cataract extraction Hx of blepharoplasty Hx of eye surgery Hx of tonsillectomy Family History Father Cancer Mother Diabetes Social History Household Members: Spouse Housing: House Comment: medicated, see MAR Patient Tobacco Use Status: Never used Tobacco e-Cigarette/Vaping Use: Never Used Second Hand Smoke Exposure: No service: Yes Current occupational status: employed and retired 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 Current occupational exposures/hazards: No Cognitive needs: No Hearing needs: No Vision needs: No Review of Systems Const Denies fatigue, Denies fever(s), Denies night sweats, Denies poor appetite and Denies weight loss ENT Reports Normal hearing present, Denies dental pain, Denies dysphagia, Denies hearing loss, Denies mouth pain, Denies odynophagia, Denies throat swelling, Denies tongue swelling and Reports other (Dentition adequate) Card Reports no additional complaints Resp Reports no additional complaints GI Details: Denies abdominal pain, Denies melena, Denies bloating, Denies hematochezia, Denies constipation, Denies GI cramping, Denies dysphagia, Denies excessive fla tus, Denies early satiety, Denies heartburn, Denies diarrhea, Denies nausea, Denies odynophagia, Denies vomiting and Denies hematemesis Skin/Breast Denies pruritus, Denies lesions, Denies rash and Denies jaundice Neuro Reports Normal hearing present and Denies Abnormal speech present Endo Denies fatigue Aller/Immun Denies throat swelling and Denies tongue swelling Physical Exam Vital Signs: Last Vital Signs Pulse 54 01/16/24 11:14 BP 139/85 01/16/24 11:14 BMI result Body Mass Index 29.4 Const General: cooperative, no acute distress, well developed and well groomed Nutritional Appearance: average body habitus and well nourished Orientation/consciousness: oriented to person, oriented to place and oriented to time Limitations: No language barrier HEENT Head: Yes normocephalic and Yes atraumatic Eyes General: appearance normal, both eyes and all related structures Pupils: Equal, round and reactive pupils present Neck Neck: Yes normal visual inspection and Yes no lymphadenopathy Thyroid: Thyroid normal Resp Effort & Inspection: normal respiratory effort and able to speak in complete sentences Auscultation: clear to auscultation bilaterally Cardio Rate: regular rate Rhythm: regular rhythm Heart sounds: Normal, physiologic split S2 sound present Peripheral pulses: radial pulses present and posterior tibial pulses present GI Inspection: No distended and No Abdominal panniculus present Palpation (GI): Soft to palpation, nontender, no guarding, not rigid and No hepatosplenomegaly present Percussion: Yes normal to percussion Auscultation: normal bowel sounds Rectal Exam - Male: Yes deferred Skin General skin exam: no rashes or lesions noted, turgor normal, skin not dry, no jaundice, No spider nevi and no striae Rashes: no rashes Nails: normal Neuro General: oriented to person, oriented to place and oriented to time Cranial nerves: Yes Equal, round and reactive pupils present and Yes Normal hearing present Speech: No Abnormal speech present Extrem General: Yes normal to inspection, No clubbing, No cyanosis and No edema Psych Appearance: grossly normal and well kempt Mental Status: mental status grossly normal Speech and movement: Normal speech and movement present Affect: normal affect Attitude: cooperative Thought process: Normal thought process present and not confabulating Thought content: Normal thought content present Insight: Fair insight present (Psych) Judgement: Fair judgement present (Psych) Results Reviewed Results Reviewed: Laboratory Tests 11/01/23 09:55 WBC 5.5 Hgb 11.6 L Hct 37.4 L MCV 82.2 MCH 25.5 L MCHC 31.0 Plt Count 211 Estimated GFR > 60 AST 32 ALT 24 Alkaline Phosphatase 45 TSH 1.16 Assessment & Plan Assessment & Plan (1) Pre-op examination: Code(s): Z01.818 - Encounter for other preprocedural examination Category: Medical (2) Tubular adenoma of colon: Comment: Sessile polyp 2021 scope large in size repeat in 3 years Code(s): D12.6 - Benign neoplasm of colon, unspecified Category: Medical Plan Patient appears to be here today for repeat colonoscopy His father had CRC. He denies any bowel or upper GI problems. He has cardiomyopathy and is seen by Dr. Ray, he denies any respiratory problems. There are no prior problems with anesthesia or sedation. NO ID problems. Again, he has a family history of colon cancer and he himself has had polyps in the past. Orders: Orders Colonoscopy - GI Use Only Today D12.6 - Benign neoplasm of colon, unspecified, Z01.818 - Encounter for other preprocedural examination Medications: New sodium,potassium,mag sulfates 17.5-3.13-1.6 gram (Suprep Bowel Prep Kit) 480 mL orally; FOR COLONOSCOPY PREP 354 mL 0RF Coding Level of Care Code Est Pt Level 4 (32931) Diagnoses Pre-op examination Z01.818 Tubular adenoma of colon D12.6
[2024-01-16 11:14] VITALS: BP 139/85; PULSE 54; BMI 29.4
== END 2024-01-16 11:40 | disposition home or self-care (01) ==
PROVIDERS: PCP Nurse Practitioner Family; Visit Provider Nurse Practitioner
DX: Z01.818 Encounter for other preprocedural examination (principal); Z12.11 Encounter for screening for malignant neoplasm of colon; Z86.010 Personal history of colon polyps; Z80.0 Family history of malignant neoplasm of digestive organs
CPT/HCPCS: 99024

== ENCOUNTER → 2024-01-16 11:04 | Outpatient (BNVA) | payer MEDICARE, SELFPAY | PROVIDERS: PCP Nurse Practitioner Family; Visit Provider Nurse Practitioner | DX: Z01.818 Encounter for other preprocedural examination (principal); D12.6 Benign neoplasm of colon, unspecified | CPT/HCPCS: 99212 ==

== ENCOUNTER 2024-02-17 12:53 | Outpatient (AMB) | payer MEDICARE, SELFPAY ==
--- NOTE | 2024-02-17 12:55 | MHC.OFFVIS ---
Vital Signs 02/17/24 12:57 Height 5 ft 11 in Weight 212 lb 11.937 oz BMI 29.7 BP 114/70 Blood Pressure Location Lt brachial Position Sitting Pulse 83 Pulse Source Pulse Oximeter Intake Visit Reasons: Macroprolactinoma Intake Note: Patient present today for Macroprolactinoma follow up . Professor Of Theater Required: No Accompanied by: Self / Same As Patient Allergies aspirin [ASPIRIN] Allergy (Intermediate, Verified 02/17/24 12:57) heartburn/hives meperidine [Demerol] Adverse Reaction (Intermediate, Verified 02/17/24 12:57) GI upset Medication List - Last Reconciled 02/17/24 by Yaya Kapoor MD atorvastatin 20 mg PO BEDTIME cabergoline 0.25 mg (1/2 x 0.5 mg) PO QWEEK ferrous sulfate 324 mg PO DAILY sodium,potassium,mag sulfates 17.5-3.13-1.6 gram (Suprep Bowel Prep Kit) 480 mL orally; FOR COLONOSCOPY PREP HPI Comments Details: 73-year-old male, Today for follow-up visit, for Macro prolactinoma He is feeling well. He has no complaints. Denies problem He denies any increased headache or loss of vision He had MRI in January 2019 which showed stable macro adenoma 1.4 cm. He was under Dr Gill for prolactinoma, last seen about 3 years a go. He had a trial holding Cabergoline about 6 years ago. He has been on cabergoline 0.25 mg once a week. He has PMH of Vitiligo, dyslipidemia. He denies cold or heat intolerance, weight gain or loss, constipation or diarrhea, dry skin, tremors, palpitations, sweating, anxiety, insomnia, fatigue, cognitive dysfunction, denies erectile dysfunction, normal libido, diplopia, decrease peripheral vision, headache, no galactorrhea, he denies dizziness, postural dizziness, nausea, vomiting, diarrhea, rash, denies increase in size of shoes, hat, gloves, snoring, hyperhydrosis, body odor, polyuria, polydipsia, nocturia. 03/17/15 Prolactin 10.6 pg/ml 01/13/18 TSH 3.03 miu/ml. 03/22/2020 MRI sella. Stable right pituitary macroadenoma with a maximum size of 1.4 cm. No encroachment on the optic chiasm nor the optic nerve. Minimal pituitary stalk shift seen to the left side on the coronal image. Small Tornwaldt cyst is stable since 02/12/2018 and 02/05/2019. 1 cm lesion in the left nasopharyngeal lateral recess is stable since 02/12/2018 and 02/05/2019 MRI brain. 06/05/18 DEXA scan AP SPINE L1-L4: There is levocurvature lumbar spine and degenerative changes with may cause overestimation of the lumbar bone mineral density. BMD 1.172 g/cm2, Z-score -0.4, T-score -0.4, normal. LEFT FEMUR, NECK: BMD 0.872 g/cm2, Z-score -0.7, T-score -1.5, osteopenia. LEFT FEMUR, TOTAL: BMD 0.969 g/cm2, Z-score -0.6, T-score -0.9, normal. 07/10/18 Estradiol ultrasensitive 17.3 pg/ml (8-35) total estrogen 143 pg/ml (40-115). Laboratory Tests 11/07/20 09:05 Prolactin 8.3 Laboratory Tests 02/04/19 02/04/19 11/11/19 09:14 09:14 08:25 25-OH Vitamin D Total 52.1 Free T4 0.74 Estradiol Ultra LCMSMS 29 Total Estrogens 157.8 Prolactin 9.0 Sex Hormone Bind Glob 31 Currently on cabergoline 0.25 mg Q weekly. Denies any visual loss or increased headache . Recent echocardiogram did not show any significant valvular pathology related to cabergoline [facility] Medical History (Updated 01/16/24 @ 11:21 by GERONIMO Roberts) Encounter for screening laboratory testing for COVID-19 virus Nasal congestion Elevated bilirubin Liver lesion Right knee pain Tear of medial meniscus of right knee Physical exam Screening PSA (prostate specific antigen) Physical exam Screening for colon cancer History of COVID-19 Cardiomyopathy HHT (hereditary hemorrhagic telangiectasia) Low back pain radiating to both legs History of pituitary tumor Pre-op evaluation Osteopenia Macroprolactinoma Prolactinoma Surgical History Hx of meniscectomy of right knee History of repair of ACL Hx of cataract extraction Hx of blepharoplasty Hx of eye surgery Hx of tonsillectomy Family History Father Cancer Mother Diabetes Social History Household Members: Spouse Housing: House Comment: medicated, see MAR Patient Tobacco Use Status: Never used Tobacco e-Cigarette/Vaping Use: Never Used Second Hand Smoke Exposure: No service: Yes Current occupational status: employed and retired 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 Assessment & Plan Assessment & Plan (1) Macroprolactinoma: Code(s): D35.2 - Benign neoplasm of pituitary gland Category: Medical Plan: This is a 72-year-old white male with a history of a macro prolactinoma currently being treated with cabergoline 0.25 mg Q weekly. Recent MRI showed stability in the size of the adenoma. Prolactin remains in normal range on cabergoline. MRI in 03/2023 shows stability in the size of the adenoma The plan is to continue the current management. We will recheck prolactin fasting along with liver panel. Will obtain repeat MRI in about 3-4 months. If lesion has decreased in size and prolactin remains normal could consider a drug holiday Orders: Orders Prolactin Today D35.2 - Benign neoplasm of pituitary gland MR head/brain wo/w con 3 Months D35.2 - Benign neoplasm of pituitary gland Liver Panel Today D35.2 - Benign neoplasm of pituitary gland Coding Level of Care Code Est Pt Level 3 (55545) Diagnoses Macroprolactinoma D35.2
[2024-02-17 12:57] VITALS: BP 114/70; PULSE 83; BMI 29.7
== END 2024-02-17 13:17 | disposition home or self-care (01) ==
PROVIDERS: PCP Nurse Practitioner Family; Visit Provider Internal Medicine Endocrinology, Diabetes & Metabolism
DX: D35.2 Benign neoplasm of pituitary gland (principal)
CPT/HCPCS: 99213

== ENCOUNTER → 2024-02-17 12:53 | Outpatient (BNVA) | payer MEDICARE, SELFPAY | PROVIDERS: PCP Nurse Practitioner Family; Visit Provider Internal Medicine Endocrinology, Diabetes & Metabolism | DX: D35.2 Benign neoplasm of pituitary gland (principal) | CPT/HCPCS: 99212 ==

== ENCOUNTER 2024-03-02 08:44 | Outpatient (AMB) | payer MEDICARE, SELFPAY ==
--- NOTE | 2024-03-02 08:45 | MHC.OFFWIV ---
Intake Vital Signs 03/02/24 08:46 Height 5 ft 11 in Weight 213 lb BMI 29.7 BP 130/72 Blood Pressure Location Rt brachial Position Sitting Pulse 72 Pulse Source Pulse Oximeter Pulse Oximetry (%) 100 Oxygen Delivery Method Room Air Intake Visit Reasons: EP LT Knee injury Intake Note: Patient here for left knee injury, last week is when it really started becoming bothersome and having difficulty walking on it. Patient Tobacco Use Status: Never used Tobacco Allergies aspirin [ASPIRIN] Allergy (Intermediate, Verified 03/02/24 08:47) heartburn/hives meperidine [Demerol] Adverse Reaction (Intermediate, Verified 03/02/24 08:47) GI upset Do you need a note to return to daycare/school/sports/work: No HPI EP LT Knee injury HPI Details This note is constructed using voice recognition software. While every effort has been made to ensure accuracy, ip/mosaic technician errors may have been included. The patient is a 73 year old male who presents to the clinic today with left knee pain for the past 2+ months. He denies any particular initial injury, however has had the pain in the medial aspect, for the past couple of months. The pain seemed to get worse in the last 2 weeks when he was moving boulders as he had to get leverage move them. He reports the pain to be the medial aspect, and he feels that this is his meniscus, as it is very similar to what his happened in the past to his right knee. He denies fever, redness to the area, or warmth. He denies any particular trauma to the area. He has tried Voltaren gel which has helped some with the pain, but has tried no other medication, no Kameron wrap, no ice or heat. He does report a limp for the past 2 months that is getting slightly worse. [facility] Medical History (Updated 03/02/24 @ 09:00 by Suzy Maurice NP) Encounter for screening laboratory testing for COVID-19 virus Nasal congestion Elevated bilirubin Liver lesion Right knee pain Tear of medial meniscus of right knee Physical exam Screening PSA (prostate specific antigen) Physical exam Screening for colon cancer History of COVID-19 Cardiomyopathy HHT (hereditary hemorrhagic telangiectasia) Low back pain radiating to both legs History of pituitary tumor Pre-op evaluation Osteopenia Macroprolactinoma Prolactinoma Surgical History Hx of meniscectomy of right knee History of repair of ACL Hx of cataract extraction Hx of blepharoplasty Hx of eye surgery Hx of tonsillectomy Family History Father Cancer Mother Diabetes Social History Household Members: Spouse Housing: House Comment: medicated, see MAR Patient Tobacco Use Status: Never used Tobacco e-Cigarette/Vaping Use: Never Used Second Hand Smoke Exposure: No service: Yes Current occupational status: employed and retired 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 Current occupational exposures/hazards: No Cognitive needs: No Hearing needs: No Vision needs: No Review of Systems Const All systems reviewed & are unremarkable except as noted in HPI and below Physical Exam Vital Signs: Last Vital Signs Pulse 72 03/02/24 08:46 BP 130/72 03/02/24 08:46 Pulse Ox 100 03/02/24 08:46 Oxygen Delivery Method Room Air 03/02/24 08:46 BMI result Body Mass Index 29.7 Const General: cooperative, healthy appearing, comfortable, no acute distress and well developed Orientation/consciousness: patient oriented x3 Limitations: no limitations Resp Effort & Inspection: normal respiratory effort and able to speak in complete sentences Neuro General: patient oriented x3 Extrem Other: Full range of motion left knee, ankle, hip. Medial joint line tenderness on valgus maneuver. Tender to palpation along medial joint line. Strength 5/5. Distal neurovascular exam intact. Results AMB Urinalysis, Automated UA Leukoctes 15 Marquis/uL Last Edit by ARUNA Lynn on 03/02/24 08:54 UA Nitrite Positive Last Edit by ARUNA Lynn on 03/02/24 08:54 UA Urobilinogen 0.2 mg/dL Last Edit by ARUNA Lynn on 03/02/24 08:54 UA Protein 15 mg/dL Last Edit by ARUNA Lynn on 03/02/24 08:54 UA pH 5.5 Last Edit by ARUNA Lynn on 03/02/24 08:54 UA Blood 200 Diogenes/uL Last Edit by ARUNA Lynn on 03/02/24 08:54 UA Specific [place] 1.020 Last Edit by ARUNA Lynn on 03/02/24 08:54 UA Ketone Negative Last Edit by ARUNA Lynn on 03/02/24 08:54 UA Bilirubin 0 mg/dL Last Edit by ARUNA Lynn on 03/02/24 08:54 UA Glucose 500 mg/dL Last Edit by ARUNA Lynn on 03/02/24 08:54 Assessment & Plan Assessment & Plan (1) Left knee pain: Code(s): M25.562 - Pain in left knee Qualifiers: Chronicity: chronic Qualified Code(s): M25.562 - Pain in left knee; G89.29 - Other chronic pain Plan: X-ray ordered to evaluate given chronicity of pain, however it appears to be more meniscal in nature. Referral to ortho placed to facilitate treatment plan. Advised rest, ice, compression, elevation. Kameron wrap provided to patient, declined placement at this time due to current clothing, however he will place this when he gets home. Advised NSAIDs as needed for pain. Plan See above for full details and plan. Orders: Orders AMB Urinalysis Automated Today Z13.9 - Encounter for screening, unspecified XR knee LT 3V Today M25.562 - Pain in left knee Referrals Orthopedics Referral G89.29 - Other chronic pain, M25.562 - Pain in left knee Coding Level of Care Code Est Pt Level 4 (69801) Diagnoses Chronic pain of left knee M25.562; G89.29 Chronicity: chronic
[2024-03-02 08:46] VITALS: BP 130/72; PULSE 72; O2SAT 100; BMI 29.7
== END 2024-03-02 09:19 | disposition home or self-care (01) ==
PROVIDERS: PCP Nurse Practitioner Family; Visit Provider Registered Nurse
DX: M25.562 Pain in left knee (principal); G89.29 Other chronic pain; Z13.9 Encounter for screening, unspecified

== ENCOUNTER → 2024-03-02 08:44 | Outpatient (BNVA) | payer MEDICARE, SELFPAY | PROVIDERS: PCP Nurse Practitioner Family; Visit Provider Registered Nurse ==

== ENCOUNTER 2024-03-02 08:59 | Outpatient (REF) | payer MEDICARE, SELFPAY ==
--- NOTE | ~2024-03-02 | XR_ITS ---
EXAMINATION: XR KNEE, LEFT CLINICAL INFORMATION: Pain in left knee COMPARISON: 05/16/2023 TECHNIQUE: Four views of the left knee. FINDINGS: Moderate joint effusion. Minimal narrowing of the medial compartment with minimal marginal osteophyte formation. XR/XR knee LT 4V IMPRESSION: Moderate joint effusion. Minimal degenerative changes. This study was presented today March 02, 2024 for interpretation. Stat results provided at this time as requested by referring provider. Electronically signed by: Apoorva Kay MD 03/02/2024 01:02 PM EDT
== END 2024-03-02 09:00 | disposition home or self-care (01) ==
LOC: HO.HMGCX 08:59
PROVIDERS: PCP Nurse Practitioner Family; Visit Provider Registered Nurse
DX: M25.562 Pain in left knee (principal); G89.29 Other chronic pain
CPT/HCPCS: 73564; 81003; 99212

== ENCOUNTER 2024-03-06 10:12 | Outpatient (REF) | payer MEDICARE, SELFPAY ==
[2024-03-06 13:15] LABS: MANUAL DIFF FLAG NO
[2024-03-06 13:25] LABS: Basophils Percent Auto 0.6 % (0-2); Eosinophils Absolute Auto 0.3 X10*3/uL (0.0-0.4); Eosinophils Percent Auto 4.8 % (0-4); Hematocrit 37.4 % (42.0-52.0); Hemoglobin 12.2 g/dl (14.0-18.0); Imm Gran Abs Auto 0.01 X10*3/uL (0.00-0.03); Imm Gran Pct Auto 0.2 % (0.0-0.4); Lymphocytes Absolute Auto 1.2 X10*3/uL (1.2-4.9); Lymphocytes Percent Auto 22.7 % (20-40); Mean Corpuscular HGB Conc 32.6 g/dl (31.0-36.0); Mean Corpuscular Volume 92.1 fL (80.0-98.0); Mean Platelet Volume 10.3 fL (9.4-12.4); Monocytes Absolute Auto 0.5 X10*3/uL (0.1-1.2); Monocytes Percent Auto 9.2 % (2-11); Neutrophils Absolute Auto 3.3 x10*3/uL (2.0-8.3); Neutrophils Percent Auto 62.5 % (45-73); Platelet Count 228 X10*3/uL (160-400); Red Blood Count 4.06 X10*6/uL (4.60-5.80); Red Cell Distribution Width 12.7 % (11.0-16.0); White Blood Count 5.2 X10*3/uL (4.8-10.8)
[2024-03-06 13:56] LABS: Alanine Aminotransferase 17 U/L (0-40); Albumin Level 4.5 g/dL (3.5-5.0); Alkaline Phosphatase 47 U/L (39-117); Aspartate Amino Transferase 19 U/L (5-37); Bilirubin Direct 0.4 mg/dL (0.0-0.5); Bilirubin Total 1.5 mg/dL (0.0-1.0); Iron 97 mcg/dL (45-160); Percent Iron Saturation 26 % (15-50); Total Iron Binding Capacity 380 mcg/dL (228-428); Unsaturated Iron Binding 283 ug/dL
[2024-03-06 14:01] LABS: Ferritin 16 ng/mL (20-250)
[2024-03-08 00:59] LABS: Prolactin 10.7 ng/mL (2.0-18.0)
== END 2024-03-06 10:13 | disposition home or self-care (01) ==
LOC: HO.HMGCLDS 10:12
PROVIDERS: PCP Nurse Practitioner Family; Referring Provider Internal Medicine Endocrinology, Diabetes & Metabolism; Visit Provider Internal Medicine
DX: D50.9 Iron deficiency anemia, unspecified (principal); D35.2 Benign neoplasm of pituitary gland
CPT/HCPCS: 36415; 80076; 82728; 83540; 84146; 85025

== ENCOUNTER 2024-03-27 08:19 | Outpatient (REF) | payer MEDICARE, SELFPAY ==
--- NOTE | ~2024-03-27 | XR_ITS ---
EXAMINATION: XR CHEST CLINICAL INFORMATION: Cough. COMPARISON: Most recent CTA chest dated 12/20/2022. TECHNIQUE: 2 views of the chest were obtained. FINDINGS: The lungs are clear. The cardiomediastinal silhouette is normal in size. There is no pleural effusion or pneumothorax. No acute osseous abnormality. XR/XR chest 2V IMPRESSION: No acute cardiopulmonary findings. Electronically signed by: Gildardo Brito MD 03/27/2024 11:12 AM [facility]
[2024-03-27 11:05] LABS: Influenza A PCR NEGATIVE (Negative); Influenza B PCR NEGATIVE (Negative); Resp Syncy Virus RNA Qual PCR NEGATIVE (Negative); SARS COV2 PCR INHOUSE NEGATIVE (Negative)
== END 2024-03-27 08:20 | disposition home or self-care (01) ==
LOC: HO.LAB 08:19
PROVIDERS: PCP Nurse Practitioner Family; Visit Provider Physician Assistant
DX: J06.9 Acute upper respiratory infection, unspecified (principal); R05.9 Cough, unspecified
CPT/HCPCS: 0241U; 71046; 99212

== ENCOUNTER 2024-03-27 08:19 | Outpatient (AMB) | payer MEDICARE, SELFPAY ==
--- NOTE | 2024-03-27 08:24 | AM.OFFWIN_ITS ---
Intake Vital Signs 03/27/24 08:25 Weight 211 lb BP 120/80 Blood Pressure Location Lt brachial Position Sitting Pulse 58 Pulse Source Pulse Oximeter Temp 98.3 F Temp Source Oral Pulse Oximetry (%) 97 Oxygen Delivery Method Room Air Intake Visit Reasons: EP ? sinus infection, congested Intake Note: Patient here for possible sinus infection, chest congestion and cough after coming back from vacation Patient Tobacco Use Status: Never used Tobacco Allergies aspirin [ASPIRIN] Allergy (Intermediate, Verified 03/27/24 08:26) heartburn/hives meperidine [Demerol] Adverse Reaction (Intermediate, Verified 03/27/24 08:26) GI upset Do you need a note to return to daycare/school/sports/work: No HPI HPI Comments History of Present Illness Details Patient is a 73-year-old male complaining of 5 days of a productive cough with yellow-brown sputum, head congestion that has now moved into his chest, sinus pain and ear pain. He denies any fevers, shortness of breath or wheezing. He states he has not been eating much she has just been mostly drinking fluids. He has tried taking Mucinex to treat his symptoms. He did not test for COVID at home. He tells me his has similar symptoms, they both just returned from [facility] 6 days ago. [facility] Medical History (Updated 03/27/24 @ 08:53 by Deedee Rodriguez PA-C) Encounter for screening laboratory testing for COVID-19 virus Nasal congestion Elevated bilirubin Liver lesion Right knee pain Tear of medial meniscus of right knee Physical exam Screening PSA (prostate specific antigen) Physical exam Screening for colon cancer History of COVID-19 Cardiomyopathy HHT (hereditary hemorrhagic telangiectasia) Low back pain radiating to both legs History of pituitary tumor Pre-op evaluation Osteopenia Macroprolactinoma Prolactinoma Surgical History Hx of meniscectomy of right knee History of repair of ACL Hx of cataract extraction Hx of blepharoplasty Hx of eye surgery Hx of tonsillectomy Family History Father Cancer Mother Diabetes Social History Household Members: Spouse Housing: House Comment: medicated, see MAR Patient Tobacco Use Status: Never used Tobacco e-Cigarette/Vaping Use: Never Used Second Hand Smoke Exposure: No service: Yes Current occupational status: employed and retired 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 Current occupational exposures/hazards: No Cognitive needs: No Hearing needs: No Vision needs: No Review of Systems Const All systems reviewed & are unremarkable except as noted in HPI and below Physical Exam Vital Signs: Last Vital Signs Temp 98.3 F 03/27/24 08:25 Pulse 58 03/27/24 08:25 BP 120/80 03/27/24 08:25 Pulse Ox 97 03/27/24 08:25 Oxygen Delivery Method Room Air 03/27/24 08:25 Const General: cooperative, healthy appearing, comfortable and no acute distress Orientation/consciousness: patient oriented x3 Limitations: no limitations HEENT Head: Yes normal to inspection Ears: hearing grossly normal bilaterally, external ears normal and TM's normal bilaterally General nose exam: Normal external nose present, Normal nares present and No nasal discharge present Face and sinus: Yes normal facial exam and Yes sinuses nontender Mouth: Normal oral and palatal mucosa present and moist mucous membranes Throat: Yes tonsils normal, Yes uvula midline and Yes posterior oropharynx abnormal (Erythema) Eyes General: appearance normal, both eyes and all related structures Neck Neck: Yes normal visual inspection Resp Effort & Inspection: normal respiratory effort, able to speak in complete sentences, Actively coughing, no respiratory distress, not tachypneic, no tripod positioning and no use of accessory muscles Auscultation: wheezes expiratory wheezes Cardio Rate: regular rate Rhythm: regular rhythm Heart sounds: normal S1 and S2 Skin General skin exam: no rashes or lesions noted Neuro General: patient oriented x3 Extrem General: Yes normal to inspection and Yes no clubbing, cyanosis or edema Assessment & Plan Assessment & Plan (1) URI (upper respiratory infection): Code(s): J06.9 - Acute upper respiratory infection, unspecified Qualifiers: URI type: unspecified URI Qualified Code(s): J06.9 - Acute upper respiratory infection, unspecified Plan: Vital signs are stable, patient well-appearing, he does have some expiratory wheezes so I will get a chest x-ray and send a prednisone burst to his pharmacy. I also tested for flu COVID and RSV. Recommended he continue using the Mucinex and other egrn-lwy-kzwlblc medications to treat his symptoms. Plan See above Orders: Orders SARS-CoV2/FLU/RSV Today J06.9 - Acute upper respiratory infection, unspecified XR chest 2V Today R05.9 - Cough, unspecified Medications: New prednisone 20 mg PO DAILY 5 tabs 0RF Coding Level of Care Code Est Pt Level 4 (26270) Diagnoses Upper respiratory tract infection, unspecified type J06.9 URI type: unspecified URI
[2024-03-27 08:25] VITALS: BP 120/80; PULSE 58; TEMP 36.8; O2SAT 97
== END 2024-03-27 08:51 | disposition home or self-care (01) ==
PROVIDERS: PCP Nurse Practitioner Family; Visit Provider Physician Assistant
DX: J06.9 Acute upper respiratory infection, unspecified (principal)

== ENCOUNTER 2024-04-13 09:11 | Outpatient (REF) | payer MEDICARE, SELFPAY ==
[2024-04-13] MEDS: gadobutroL 7.5 ML VIAL IVPUSH (10:48)
== END 2024-04-13 09:12 | disposition home or self-care (01) ==
LOC: HO.MRI 09:11
PROVIDERS: PCP Nurse Practitioner Family; Visit Provider Internal Medicine Endocrinology, Diabetes & Metabolism
DX: D35.2 Benign neoplasm of pituitary gland (principal)
CPT/HCPCS: 70553; A9585

== ENCOUNTER 2024-04-15 08:53 | Outpatient (REF) | payer MEDICARE, SELFPAY ==
--- NOTE | ~2024-04-15 | XR_ITS ---
EXAMINATION: 3 views of the left knee. Single view of the right knee. CLINICAL INFORMATION: Pain in the knees COMPARISON: Of the right knee August 2020 and of the left knee February 2024 TECHNIQUE: 3 views of left knee including AP upright. Limited AP upright view of the right knee FINDINGS: Left knee: The bones joints and soft tissues are normal. No effusion. Right knee limited AP upright: The medial and lateral compartments are normal surrounding bone and soft tissues are normal. XR/XR knee LT 3V IMPRESSION: Left knee: Normal. Limited right knee: Normal Electronically signed by: Skyler Duval MD 04/19/2024 01:46 PM EST
--- NOTE | ~2024-04-15 | XR_ITS ---
EXAMINATION: 3 views of the left knee. Single view of the right knee. CLINICAL INFORMATION: Pain in the knees COMPARISON: Of the right knee August 2020 and of the left knee February 2024 TECHNIQUE: 3 views of left knee including AP upright. Limited AP upright view of the right knee FINDINGS: Left knee: The bones joints and soft tissues are normal. No effusion. Right knee limited AP upright: The medial and lateral compartments are normal surrounding bone and soft tissues are normal. XR/XR knee RT 1V IMPRESSION: Left knee: Normal. Limited right knee: Normal Electronically signed by: Skyler Duval MD 04/19/2024 01:46 PM EST
== END 2024-04-15 08:54 | disposition home or self-care (01) ==
LOC: HO.HOSX 08:53
PROVIDERS: Visit Provider Physician Assistant
DX: M25.561 Pain in right knee (principal); M25.562 Pain in left knee; M23.92 Unspecified internal derangement of left knee
CPT/HCPCS: 73560; 73562; 99202

== ENCOUNTER 2024-04-15 10:24 | Outpatient (AMB) | payer MEDICARE, SELFPAY ==
--- NOTE | 2024-04-15 10:53 | MHC.OFFVIS ---
Intake Visit Reasons: New Prob- L knee pain Intake Note: Justice is a 73 year old male who presents today for a evaluation of his left knee pain, DOI 01/2024. Hx of Right Knee 09/29/2020. Patient was doing a retainer wall with bolder and it hit his knee. He states that his pain is affecting his whole knee and behind his calf. Allergies aspirin [ASPIRIN] Allergy (Intermediate, Verified 04/15/24 10:55) heartburn/hives meperidine [Demerol] Adverse Reaction (Intermediate, Verified 04/15/24 10:55) GI upset HPI HPI New Prob- L knee pain: Details: 73-year-old male who presents in the office today, for an evaluation of left knee pain. The patient was [facility]24 with the complaint of left knee pain ongoing for more than two months and has been limping with ambulation. He reported pain in the medial aspect of his left knee. He denies any trauma or injury in the left knee. He has tried Voltaren gel with mild pain relief. X-rays of the left knee were obtained. He was advised rest, ice, compression, leg elevation and NSAIDs PRN for pain relief. He declined placing MARLINE wrap in the clinic; however, he was provided with MARLINE wrap and recommended to use. He was referred to [facility] for further evaluation. While in the office today, the patient reports experiencing left knee pain status post a work-related accident that occurred in January 2024. He was doing a retainer wall with a boulder and it hit his left knee. He mentions pain in his whole left knee and behind his left calf as well. The patient has a surgical history of right knee arthroscopic partial medial meniscectomy and debridement patella, which was performed on 09/29/[address] Zachary Marroquin. [facility] Medical History (Updated 04/15/24 @ 11:15 by Edith Osman PA-C) Encounter for screening laboratory testing for COVID-19 virus Nasal congestion Elevated bilirubin Liver lesion Right knee pain Tear of medial meniscus of right knee Physical exam Screening PSA (prostate specific antigen) Physical exam Screening for colon cancer History of COVID-19 Cardiomyopathy HHT (hereditary hemorrhagic telangiectasia) Low back pain radiating to both legs History of pituitary tumor Pre-op evaluation Osteopenia Macroprolactinoma Prolactinoma Surgical History Hx of meniscectomy of right knee History of repair of ACL Hx of cataract extraction Hx of blepharoplasty Hx of eye surgery Hx of tonsillectomy Family History Father Cancer Mother Diabetes Social History Household Members: Spouse Housing: House Comment: medicated, see MAR Patient Tobacco Use Status: Never used Tobacco e-Cigarette/Vaping Use: Never Used Second Hand Smoke Exposure: No service: Yes Current occupational status: employed and retired 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 No ecchymosis, erythema, or edema. Tenderness to palpation in the medial joint line. No tenderness to palpation in the lateral joint line. Positive for Susan?s in the medial joint line. NVI. Assessment & Plan Assessment & Plan (1) Internal derangement of left knee: Code(s): M23.92 - Unspecified internal derangement of left knee Category: Medical Plan Mr. Amos is a 73-year-old male who presents in the office today, for an evaluation of left knee pain. The patient was presented to the [facility] on 03/[facility]24 with the complaint of left knee pain ongoing for more than two months and has been limping with ambulation. He reported pain in the medial aspect of his left knee. He denies any trauma or injury in the left knee. He has tried Voltaren gel with mild pain relief. X-rays of the left knee were obtained. He was advised rest, ice, compression, leg elevation and NSAIDs PRN for pain relief. He declined placing MARLINE wrap in the clinic; however, he was provided with MARLINE wrap and recommended to use. He was referred to [facility] Orthoped[facility] for further evaluation. While in the office today, the patient reports experiencing left knee pain status post a work-related accident that occurred in January 2024. He was doing a retainer wall with a boulder and it hit his left knee. He mentions pain in his whole left knee and behind his left calf as well. The patient has a surgical history of right knee arthroscopic partial medial meniscectomy and debridement patella, which was performed on 09/29/[address] Zachary Marroquin. I have placed an order for the MRI of the left knee to further evaluate the integrity of the knee and surrounding structures. Follow-up will be after the MRI is obtained, or sooner if needed. X-rays of the left knee, which were obtained while in the office today and were reviewed by me, Edith Osman PA-C, revealed: Osteoarthritis. X-rays of the left knee, obtained on 03/02/24, revealed: Moderate joint effusion. Minimal degenerative changes. Orders: Orders XR knee RT 1V Today M25.569 - Pain in unspecified knee XR knee LT 3V Today M25.569 - Pain in unspecified knee MR knee LT wo con Today M23.92 - Unspecified internal derangement of left knee Patient Instructions: Scribed by Mely Kincaid, electromedical service engineer, for Edith Osman PA-C on 04/15/24 at 11:04 am EST. Coding Level of Care Code New Pt Level 4 (13702) Diagnoses Internal derangement of left knee M23.92
== END 2024-04-15 11:18 | disposition home or self-care (01) ==
PROVIDERS: PCP Nurse Practitioner Family; Visit Provider Physician Assistant
DX: M23.92 Unspecified internal derangement of left knee (principal)
CPT/HCPCS: 99204

== ENCOUNTER 2024-05-15 09:57 | Outpatient (REF) | payer MEDICARE, SELFPAY | END 2024-05-15 09:58 | disposition home or self-care (01) | LOC: HO.MRI 09:57 | PROVIDERS: PCP Nurse Practitioner Family; Visit Provider Physician Assistant | DX: M23.92 Unspecified internal derangement of left knee (principal) | CPT/HCPCS: 73721 ==

== ENCOUNTER → 2024-05-15 10:03 | Outpatient (BNV) | payer MEDICARE, SELFPAY | PROVIDERS: PCP Nurse Practitioner Family; Visit Provider Radiology Diagnostic Radiology | DX: S83.282A Other tear of lateral meniscus, current injury, left knee, initial encounter (principal); M25.462 Effusion, left knee | CPT/HCPCS: 73721 ==

== ENCOUNTER 2024-05-25 09:57 | Outpatient (AMB) | payer MEDICARE, SELFPAY ==
[2024-05-25 09:59] VITALS: BP 122/80; PULSE 63; O2SAT 94; BMI 29.4
--- NOTE | 2024-05-25 09:59 | A.OFFPC_ITS ---
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 Accompanied by: Spouse Allergies aspirin [ASPIRIN] Allergy (Intermediate, Verified 05/25/24 10:00) heartburn/hives meperidine [Demerol] Adverse Reaction (Intermediate, Verified 05/25/24 10:00) GI upset Medication List - Last Reconciled 05/25/24 by Stevan Soto, [employer]- atorvastatin 20 mg PO BEDTIME cabergoline 0.25 mg (1/2 x 0.5 mg) PO QWEEK ferrous sulfate 324 mg PO DAILY Tobacco use date assessed: 05/25/24 Fall risk assessment: No Falls in past year Last assessed Fall Risk: 05/25/24 Dental Screening Dental Screen Date: 05/25/24 Did you have a dental visit in the last 12 months?: Yes Did you have a dental problem in the last 6 months where you did not have access to dental care?: No Was dental information given to patient?: Patient has dentist HPI 6M F/U HPI Details Chief Complaint The patient presents for a follow-up regarding ongoing left knee pain and history of Hereditary Hemorrhagic Telangiectasia (HHT) with recent nasal bleeding episodes. History of Present Illness The patient is a 73-year-old male presenting with ongoing left knee pain and Hereditary Hemorrhagic Telangiectasia (HHT). He is currently under the care of orthopedic specialists for the knee pain. The knee pain has been persisting, and he has not indicated any recent changes or interventions. Additionally, he has a history of HHT, for which he is being monitored by the hematology team. Recently, he reported an increase in the frequency of epistaxis, which has since subsided. The cessation of nasal bleeding coincided with the introduction of humidifiers in various rooms of his residence, including the bedroom and living areas. He has been using electric heating, which may have contributed to the dryness of the air. It was noted that when epistaxis occurred, applying pressure ceased the bleeding within approximately 20 minutes. He is aware of the need to seek emergency treatment if bleeding persists beyond this duration or accompanies symptoms such as chest pain, shoulder pain, nausea, or vomiting. Dyslipidemia: currently on a statin, will check lipids in the near future. Social History - Uses electric heating at home. - Has implemented the use of humidifiers in the home to manage environmental dryness. Health Maintenance Review of Systems - Respiratory: Denies chest pain, should er pain, nausea, vomiting. Physical Exam General: Cooperative, healthy appearing, comfortable, no acute distress and well developed Orientation: Patient oriented x3 Limitations: No limitations Head: Normal to inspection Ears: Hearing grossly normal bilaterally Nose: Normal external nose present, mucous membranes without current signs of irritation. Face and sinus: Normal facial exam Eyes: Appearance normal, both eyes and all related structures Neck: Normal visual inspection and Yes full ROM Respiratory: Normal respiratory effort and able to speak in complete sentences. Clear to auscultation bilaterally Cardiovascular: Regular rate and rhythm. Normal S1 and S2, systolic murmur GI: Normal to inspection. Soft to palpation and nontender Skin: No rashes or lesions noted Neuro: Patient oriented x3 Extremities: Normal to inspection, ongoing left knee pain, currently seeing ortho for this Results Plan - Continue care with hematology team for Hereditary Hemorrhagic Telangiectasia. - Continue follow-up with the orthopedic team for management of left knee pain. - Encourage use of humidifiers in the ho me to prevent episodes of epistaxis. Patient was informed and verbally consented to the use of an ambient scribe for clinic note documentation during this visit. Discussion Notes I discussed with the patient the management of his Hereditary Hemorrhagic Telangiectasia and the importance of environmental modifications such as humidifiers to prevent nosebleeds. I advised him to continue monitoring his knee pain under orthopedic supervision and to apply pressure if epistaxis occurs, along with instructions on when to seek emergency care if symptoms escalate. I emphasized awareness of additional symptoms that may require urgent attention, such as chest pain or persistent epistaxis beyond 20 minutes. Patient Instructions - Use humidifiers regularly in the home environment. - Monitor for any prolonged or severe no sebleeds and seek emergency care if bleeding persists beyond 20 minutes. - Report any new or worsening symptoms t o your healthcare provider. - Continue with follow-up appointments a s scheduled with orthopedic and hematology specialists. [facility] Medical History Encounter for screening laboratory testing for COVID-19 virus Nasal congestion Elevated bilirubin Liver lesion Right knee pain Tear of medial meniscus of right knee Physical exam Screening PSA (prostate specific antigen) Physical exam Screening for colon cancer History of COVID-19 Cardiomyopathy HHT (hereditary hemorrhagic telangiectasia) Low back pain radiating to both legs History of pituitary tumor Pre-op evaluation Osteopenia Macroprolactinoma Prolactinoma Surgical History Hx of meniscectomy of right knee History of repair of ACL Hx of cataract extraction Hx of blepharoplasty Hx of eye surgery Hx of tonsillectomy Family History Father Cancer Mother Diabetes Social History Household Members: Spouse Housing: House Comment: medicated, see MAR Patient Tobacco Use Status: Never used Tobacco e-Cigarette/Vaping Use: Never Used Second Hand Smoke Exposure: No service: Yes Current occupational status: employed and retired 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 1. Little interest or pleasure in doing things: not at all 2. Feeling down, depressed, or hopeless: not at all 3. Trouble falling or staying asleep, or sleeping too much: more than half the days 4. Feeling tired or having little energy: several days 5. Poor appetite or overeating: several days 6. Feeling bad about yourself - or that you are a failure or have let yourself or your family down: not at all 7. Trouble concentrating on things, such as reading the newspaper or watching television: not at all 8. Moving or speaking so slowly that other people could have noticed. Or the opposite - being so fidgety or restless that you have been moving around a lot more than usual: not at all 9. Thoughts that you would be better off or of hurting yourself in some way: not at all Total score: 4 Depression Screening Interpretation: Negative Depression Screening Done: Yes 94854 - PHQ-9 Billing: Yes Source: Developed by Drs. Yaya Elizabeth, Isabella Li, Tan Christian and colleagues, with an educational gen from [employer]. Thrive Questionnaire Date Thrive assessed: 05/25/24 I am a: Patient What is your living situation today?: I have a steady place to live Within the past 12 months, did the food you bought not last and you didn't have the money to get more?: Never true Within the past 12 months, did you worry whether your food would run out before you got money to buy more?: Never true Do you have trouble paying for medicines?: No Do you have trouble getting transportation to medical appointments?: No Do you have trouble paying your heating and electricity bill?: No Do you have trouble taking care of your child, family member or friend?: No Do you have trouble with day-to-day activities such as bathing, preparing meals, shopping, managing finances, etc.?: I choose not to answer this question Are you currently unemployed and looking for a job?: I choose not to answer this question Are you interested in more education?: I choose not to answer this question Please select the resources that you would like help with: None Currently or been in a relationship where the following occur: I choose not to answer THRIVE Score: 0 AUDIT C Alcohol Use Questionnaire (AUDIT-C) 1. How often do you have a drink containing alcohol?: 2-4 times a month 2. How many drinks containing alcohol do you have on a typical day when you are drinking?: 3 or 4 3. How often do you have six or more drinks on one occasion?: Daily or almost daily Total Score: 7 Score Reviewed/Action Taken: Yes MARK-7 AMB Questionnaire MARK-7 Date MARK - 7 assessed: 05/25/24 Feeling nervous, anxious, or on edge: 0 = Not at all Not being able to stop or control worryin = Not at all Worrying too much about different things: 0 = Not at all Trouble relaxin = Not at all Being so restless that it is hard to sit still: 0 = Not at all Becoming easily annoyed or irritable: 0 = Not at all Feeling afraid as if something awful might happen: 0 = Not at all Total MARK-7 score (0-4 normal; 5-9 mild; 10-14 moderate; 15-21 severe): 0 Source: Developed by Drs. Yaya Elizabeth, Isabella Li, Tan Christian and colleagues, with an educational gen from [employer]. MARK-7 Assessment Billing MARK-7 Assessment Tool: MARK-7 Assessment 35134 Physical exam (Primary Care) Vital Signs: Last Vital Signs Pulse 63 05/25/24 09:59 BP 122/80 05/25/24 09:59 Pulse Ox 94 05/25/24 09:59 Oxygen Delivery Method Room Air 05/25/24 09:59 BMI result Body Mass Index 29.4 Tobacco/Smoking Status: Tobacco use Status Tobacco use date assessed 05/25/24 05/25/24 10:01 Patient Tobacco Use Status Never used Tobacco 05/25/24 10:01 e-Cigarette/Vaping Use Never Used 05/25/24 10:01 PHQ-9: PHQ-9 Score PHQ-9: Total score 4 05/25/24 11:02 Depression Screening Interpretation: Negative Thrive Assessment: Date of Thrive Assessment Date Thrive assessed 05/25/24 05/25/24 10:01 Currently or been in a relationship where the following occur: I choose not to answer Coding Level of Care Code Est Pt Level 3 (74856) Diagnoses HHT (hereditary hemorrhagic telangiectasia) I78.0 Dyslipidemia E78.5 Epistaxis R04.0 Additional Codes MARK-7 Assessment Billing - MARK-7 Assessment Tool: MARK-7 Assessment 31872 ([id number]) PHQ-9 - 89472 - PHQ-9 Billing: Yes ([id number]) Assessment & Plan Assessment & Plan (1) HHT (hereditary hemorrhagic telangiectasia): Code(s): I78.0 - Hereditary hemorrhagic telangiectasia Category: Medical (2) Dyslipidemia: Code(s): E78.5 - Hyperlipidemia, unspecified Category: Medical (3) Epistaxis: Code(s): R04.0 - Epistaxis Category: Medical Plan . Orders: Orders Comprehensive [place]. Panel Fast Today E78.5 - Hyperlipidemia, unspecified, I78.0 - Hereditary hemorrhagic telangiectasia TSH reflex Free T4 Today E78.5 - Hyperlipidemia, unspecified, I78.0 - Hereditary hemorrhagic telangiectasia Lipid Panel Today E78.5 - Hyperlipidemia, unspecified, I78.0 - Hereditary hemorrhagic telangiectasia Complete Blood Count Auto Diff Today E78.5 - Hyperlipidemia, unspecified, I78.0 - Hereditary hemorrhagic telangiectasia UA CC w/rflx Micro + Cult Today E78.5 - Hyperlipidemia, unspecified, I78.0 - Hereditary hemorrhagic telangiectasia
== END 2024-05-25 10:50 | disposition home or self-care (01) ==
PROVIDERS: PCP Nurse Practitioner Family; Visit Provider Nurse Practitioner Family
DX: I78.0 Hereditary hemorrhagic telangiectasia (principal); E78.5 Hyperlipidemia, unspecified; R04.0 Epistaxis

== ENCOUNTER → 2024-05-25 09:57 | Outpatient (BNVA) | payer MEDICARE, SELFPAY | PROVIDERS: PCP Nurse Practitioner Family; Visit Provider Nurse Practitioner Family | DX: M25.562 Pain in left knee (principal); E78.5 Hyperlipidemia, unspecified; I78.0 Hereditary hemorrhagic telangiectasia; R04.0 Epistaxis; Z79.899 Other long term (current) drug therapy | CPT/HCPCS: 96127; 99212 ==

== ENCOUNTER 2024-06-16 07:24 | Day surgery (SDC) | payer MEDICARE, SELFPAY ==
--- NOTE | 2024-06-15 13:36 | HO.ANESPROP2 ---
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 PMFSH Active Problems Active Problems: All Active Problems Epistaxis (Acute) Internal derangement of left knee (Acute) URI (upper respiratory infection) (Acute) Skin lesion (Acute) Dyslipidemia (Acute) Left knee pain (Acute) [place] syndrome (Acute) Ascending aorta dilatation (Acute) Tubular adenoma of colon (Acute) Iron deficiency anemia (Chronic) Somatic dysfunction of left sacroiliac joint (Acute) Hematuria (Acute) Left hip pain (Acute) Hearing loss (Acute) Systolic murmur (Acute) Vitamin D deficiency (Acute) Pre-op examination (Acute) HHT (hereditary hemorrhagic telangiectasia) (Acute) Low back pain radiating to both legs (Acute) Osteopenia (Acute) Macroprolactinoma (Acute) Prolactinoma (Acute) Past Medical History Medical History Encounter for screening laboratory testing for COVID-19 virus Nasal congestion Elevated bilirubin Liver lesion Right knee pain Tear of medial meniscus of right knee Physical exam Screening PSA (prostate specific antigen) Physical exam Screening for colon cancer History of COVID-19 Cardiomyopathy HHT (hereditary hemorrhagic telangiectasia) Low back pain radiating to both legs History of pituitary tumor Pre-op evaluation Osteopenia Macroprolactinoma Prolactinoma Family History Family History Father Cancer Mother Diabetes Family history of problems with anesthesia: No Surgical History Surgical History Hx of meniscectomy of right knee History of repair of ACL Hx of cataract extraction Hx of blepharoplasty Hx of eye surgery Hx of tonsillectomy History of Problems with Anesthesia: No Social History Social History Household Members: Spouse Housing: House Comment: medicated, see MAR Patient Tobacco Use Status: Never used Tobacco e-Cigarette/Vaping Use: Never Used Second Hand Smoke Exposure: No service: Yes Current occupational status: employed and retired 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 Current occupational exposures/hazards: No Cognitive needs: No Hearing needs: No Vision needs: No Meds Allergies Allergy/AdvReac Type Severity Reaction Status Date / Time aspirin [ASPIRIN] Allergy Intermediate heartburn/h Verified 05/25/24 10:00 marcela meperidine [Demerol] AdvReac Intermediate GI upset Verified 05/25/24 10:00 Exam Pertinent Lab Results Pertinent Lab Results: Laboratory Tests 11/01/23 03/06/24 09:55 10:25 WBC 5.2 Hgb 12.2 L Hct 37.4 L Plt Count 228 Sodium 142 Potassium 4.3 Chloride 108 Carbon Dioxide 26 BUN 14 Creatinine 0.99 Narrative Narrative: ECHO 11/2023 Conclusions: - 1. Normal LV ejection fraction at 60-65% with mild LVH with impaired relaxation filling pattern 2. Mild aortic regurgitation secondary to ascending aortic pathology 3. Moderate ascending aortic enlargement at 4.5 cm 4. No gross pericardial effusion Assessment and Plan Assessment Anesthesia Assessment: Chart Reviewed Final Anesthetic Review Family History of Problems with Anesthesia: No History of Problems with Anesthesia: No
[2024-06-16 07:58] VITALS: BP 141/80; PULSE 61; RESP 16; TEMP 36.8; O2SAT 96; BMI 28.6
[2024-06-16] MEDS: Lactated Ringers 1,000 ML 100 ML IVCONT (08:09)
--- NOTE | 2024-06-16 08:14 | MHC.SHP ---
Pre-Procedural Eval Section A - 24 Hr Update-Section A only Date of Service: 06/16/24 Section B - Complete if H&P > 30 days Chief Complaint: Benign neoplasm of colon, unspecified Relevant Family History (Specify if Yes): No Relevant Social History: None Present Medications: see Short Stay Collaborative assessment Medical History: Significant History (Nasal congestion Elevated bilirubin Liver lesion Right knee pain Tear of medial meniscus of right knee Physical exam Screening PSA (prostate specific antigen) Physical exam Screening for colon cancer History of COVID-19 Cardiomyopathy HHT (hereditary hemorrhagic telangiectasia) Low back pain radiati) History of Previous Operations: Relevant previous surgery/procedure and date(s) (Hx of meniscectomy of right knee History of repair of ACL Hx of cataract extraction Hx of blepharoplasty Hx of eye surgery Hx of tonsillectomy) Allergies: Allergies Allergy/AdvReac Type Severity Reaction Status Date / Time aspirin [ASPIRIN] Allergy Intermediate heartburn/h Verified 05/25/24 10:00 marcela meperidine [Demerol] AdvReac Intermediate GI upset Verified 05/25/24 10:00 Review of Systems Sugical H&P ROS: Negative: Constitution, Cardiovascular, Respiratory, Neurological, Psychiatric, Hem-Onc, Allergic/Immunologic, Gastrointestinal, Genitourinary, Musculoskeletal, Integumentary, Endocrine and Eyes/Ears/Nose/Throat Exam Surgical H&P Exam: Normal: HEENT, Normal: Heart, Normal: Lungs, Normal: Extremities, Normal: Abdomen, Normal: Skin and Normal: Neurological Plan Diagnosis/Plan: Unchanged I have reviewed the history and physical and performed a pertinent physical examination on my patient. No changes have occurred unless specified. Time Spent With Patient Time: Total time managing care of this patient today ____ minutes.
--- NOTE | 2024-06-16 09:38 | P.OPN-COLO_ITS ---
Colonoscopy Operative Note Operative Note Date of Service: 06/16/24 Narrative: Operative Information Procedure Description: Colonoscopy Indication: screening Anesthesia: MAC COLONOSCOPY Instrument: Olympus variable stiffness pediatric scope 190L Colonoscopy Monitoring: Vital signs and clinical assessment, continuous EKG monitoring, Pulse oximetry, Carbon Dioxide monitoring and blood pressure monitoring were done throughout the procedure. Colon withdrawal time was 13 minutes. Procedure: The patient was placed in the left lateral decubitis position and pre-procedure medications were administered. After a digital rectal examination of the ano-rectum, the video colonoscope was inserted into the rectum and advanced through the colon to the cecum/TI. The colonoscope was slowly withdrawn in a retrograde panoramic fashion and the colon mucosa was carefully examined including a retroflexed view of the rectum. Findings and interventions are described below. Procedure Difficulty: moderate Findings: Terminal Ileum-normal Cecum:normal Ascending Colon: normal Transverse Colon -normal Descending Colon:normal Sigmoid Colon: normal Rectum: Retroflexion with small internal hemorrhoids seen, grade I Anorectum - normal Intervention: none Colon preparation: [place] Bowel Preparation Scale Right colon; 2 Transverse colon: 2 Left colon; 1-2 (0 = Unprepared colon segment with mucosa not seen due to solid stool that cannot be cleared. 1 = Portion of mucosa of the colon segment seen, but other areas of the colon segment not well seen due to staining, residual stool and/or opaque liquid. 2 = Minor amount of residual staining, small fragments of stool and/or opaque liquid, but mucosa of colon segment seen well. 3 = Entire mucosa of colon segment seen well with no residual staining, small fragments of stool or opaque liquid) Impression and Post Procedure Diagnosis: internal hemorrhoids Plan: High fiber diet leaflet Avoid straining at stool, epsom salts and sitz bath, anusol supps or cream Repeat Colonoscopy in 1-2 years due to areas of fair prep on the left side or earlier if clinically indicated Above findings were reviewed with the patient and relevant handouts were provided if indicated.
[2024-06-16 09:44] VITALS: BP 110/60; PULSE 61; RESP 16; TEMP 36.1; O2SAT 95
[2024-06-16 09:59] VITALS: BP 121/50; PULSE 64; RESP 16; O2SAT 97
[2024-06-16 10:12] VITALS: BP 113/61; PULSE 54; RESP 16; TEMP 36.2; O2SAT 97
== END 2024-06-16 10:23 | disposition home or self-care (01) ==
PROVIDERS: PCP Nurse Practitioner Family; Visit Provider Internal Medicine Gastroenterology
PROC: 0DJD8ZZ Inspection of Lower Intestinal Tract, Via Natural or Artificial Opening Endoscopic (ICD-10-PCS; CPT 45378; principal; 2024-06-16 09:10)
DX: Z12.11 Encounter for screening for malignant neoplasm of colon (principal); Z86.0101 Personal history of adenomatous and serrated colon polyps; Z80.0 Family history of malignant neoplasm of digestive organs; K64.0 First degree hemorrhoids; E80.7 Disorder of bilirubin metabolism, unspecified; K76.9 Liver disease, unspecified; I78.0 Hereditary hemorrhagic telangiectasia; I42.9 Cardiomyopathy, unspecified; D35.2 Benign neoplasm of pituitary gland; Z88.6 Allergy status to analgesic agent; Z88.5 Allergy status to narcotic agent; Z98.890 Other specified postprocedural states
CPT/HCPCS: G0105; J2003; J2704

== ENCOUNTER → 2024-06-16 07:24 | Outpatient (BNV) | payer MEDICARE, SELFPAY | PROVIDERS: PCP Nurse Practitioner Family; Visit Provider Internal Medicine Gastroenterology | DX: Z12.11 Encounter for screening for malignant neoplasm of colon (principal); Z86.0101 Personal history of adenomatous and serrated colon polyps; K64.8 Other hemorrhoids | CPT/HCPCS: G0105 ==

== ENCOUNTER 2024-06-18 08:01 | Outpatient (AMB) | payer MEDICARE, SELFPAY ==
--- NOTE | 2024-06-18 08:03 | A.OFFVIS_ITS ---
Vital Signs 06/18/24 08:06 Height 5 ft 11 in Weight 213 lb 13.574 oz BMI 29.8 BP 132/62 Blood Pressure Location Lt brachial Position Sitting Pulse 62 Pulse Source Pulse Oximeter Intake Visit Reasons: Macroprolactinoma Intake Note: Patient present today for Macroprolactinoma follow up . Patient Financial Services Coordinator Required: No Accompanied by: Self / Same As Patient Allergies aspirin [ASPIRIN] Allergy (Intermediate, Verified 06/18/24 08:06) heartburn/hives meperidine [Demerol] Adverse Reaction (Intermediate, Verified 06/18/24 08:06) GI upset Medication List - Last Reconciled 06/18/24 by Yaya Kapoor MD atorvastatin 20 mg PO BEDTIME cabergoline 0.25 mg (1/2 x 0.5 mg) PO QWEEK ferrous sulfate 324 mg PO DAILY HPI Comments Details: 73-year-old male, Today for follow-up visit, for Macro prolactinoma He is feeling well. He has no complaints. Denies problem He denies any increased headache or loss of vision He had MRI in January 2019 which showed stable macro adenoma 1.4 cm. He was under Dr Gill for prolactinoma, last seen about 3 years a go. He had a trial holding Cabergoline about 6 years ago. He has been on cabergoline 0.25 mg once a week. He has PMH of Vitiligo, dyslipidemia. He denies cold or heat intolerance, weight gain or loss, constipation or diarrhea, dry skin, tremors, palpitations, sweating, anxiety, insomnia, fatigue, cognitive dysfunction, denies erectile dysfunction, normal libido, diplopia, decrease peripheral vision, headache, no galactorrhea, he denies dizziness, postural dizziness, nausea, vomiting, diarrhea, rash, denies increase in size of shoes, hat, gloves, snoring, hyperhydrosis, body odor, polyuria, polydipsia, nocturia. 03/17/15 Prolactin 10.6 pg/ml 01/13/18 TSH 3.03 miu/ml. 03/22/2020 MRI sella. Stable right pituitary macroadenoma with a maximum size of 1.4 cm. No encroachment on the optic chiasm nor the optic nerve. Minimal pituitary stalk shift seen to the left side on the coronal image. Small Tornwaldt cyst is stable since 02/12/2018 and 02/05/2019. 1 cm lesion in the left nasopharyngeal lateral recess is stable since 02/12/2018 and 02/05/2019 MRI brain. 06/05/18 DEXA scan AP SPINE L1-L4: There is levocurvature lumbar spine and degenerative changes with may cause overestimation of the lumbar bone mineral density. BMD 1.172 g/cm2, Z-score -0.4, T-score -0.4, normal. LEFT FEMUR, NECK: BMD 0.872 g/cm2, Z-score -0.7, T-score -1.5, osteopenia. LEFT FEMUR, TOTAL: BMD 0.969 g/cm2, Z-score -0.6, T-score -0.9, normal. 07/10/18 Estradiol ultrasensitive 17.3 pg/ml (8-35) total estrogen 143 pg/ml (40-115). Laboratory Tests 11/07/20 09:05 Prolactin 8.3 Laboratory Tests 02/04/19 02/04/19 11/11/19 09:14 09:14 08:25 25-OH Vitamin D Total 52.1 Free T4 0.74 Estradiol Ultra LCMSMS 29 Total Estrogens 157.8 Prolactin 9.0 Sex Hormone Bind Glob 31 Currently on cabergoline 0.25 mg Q weekly. Denies any visual loss or increased headache . Recent echocardiogram did not show any significant valvular pathology related to cabergoline . Recent MRI showed stability in the size of the adenoma [facility] Medical History Encounter for screening laboratory testing for COVID-19 virus Nasal congestion Elevated bilirubin Liver lesion Right knee pain Tear of medial meniscus of right knee Physical exam Screening PSA (prostate specific antigen) Physical exam Screening for colon cancer History of COVID-19 Cardiomyopathy HHT (hereditary hemorrhagic telangiectasia) Low back pain radiating to both legs History of pituitary tumor Pre-op evaluation Osteopenia Macroprolactinoma Prolactinoma Surgical History Hx of meniscectomy of right knee History of repair of ACL Hx of cataract extraction Hx of blepharoplasty Hx of eye surgery Hx of tonsillectomy Family History Father Cancer Mother Diabetes Social History Household Members: Spouse Housing: House Patient Tobacco Use Status: Never used Tobacco e-Cigarette/Vaping Use: Never Used Second Hand Smoke Exposure: No service: Yes Current occupational status: employed and retired 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 Recent MRI showed stability in the size of the adenoma. Prolactin remains in normal range on cabergoline. The plan is to continue the current management. Considering the size of the adenoma we will continue the cabergoline and not give her a drug holiday at this point. Recent echocardiogram did not show any effects of the cabergoline. Will repeat MRI in 1 year's time and have patient returned then Orders: Orders MR head/brain wo/w con 11 Months D35.2 - Benign neoplasm of pituitary gland Medications: Refilled cabergoline 0.25 mg (1/2 x 0.5 mg) PO QWEEK 16 tabs 4RF D35.2 - Benign neoplasm of pituitary gland Coding Level of Care Code Est Pt Level 3 (33673) Diagnoses Macroprolactinoma D35.2
[2024-06-18 08:06] VITALS: BP 132/62; PULSE 62; BMI 29.8
== END 2024-06-18 08:25 | disposition home or self-care (01) ==
PROVIDERS: PCP Nurse Practitioner Family; Visit Provider Internal Medicine Endocrinology, Diabetes & Metabolism
DX: D35.2 Benign neoplasm of pituitary gland (principal)
CPT/HCPCS: 99213

== ENCOUNTER → 2024-06-18 08:01 | Outpatient (BNVA) | payer MEDICARE, SELFPAY | PROVIDERS: PCP Nurse Practitioner Family; Visit Provider Internal Medicine Endocrinology, Diabetes & Metabolism | DX: D35.2 Benign neoplasm of pituitary gland (principal) | CPT/HCPCS: 99212 ==

== ENCOUNTER → 2024-06-19 10:03 | Outpatient (BNVA) | payer MEDICARE, SELFPAY | PROVIDERS: PCP Nurse Practitioner Family; Visit Provider Orthopaedic Surgery | DX: S83.242A Other tear of medial meniscus, current injury, left knee, initial encounter (principal); X58.XXXA Exposure to other specified factors, initial encounter; Y93.9 Activity, unspecified; Y92.69 Other specified industrial and construction area as the place of occurrence of the external cause; Y99.0 Civilian activity done for income or pay | CPT/HCPCS: 99212 ==

== ENCOUNTER 2024-09-17 09:41 | Outpatient (AMB) | payer MEDICARE, SELFPAY ==
--- NOTE | 2024-09-17 08:58 | MHC.OFFVIS ---
Vital Signs 09/17/24 09:49 Height 5 ft 11 in Weight 202 lb BMI 28.2 Intake Visit Reasons: Pre-Lt Knee 09/22/24 NE Intake Note: Justice is a 73 year old male who presents today for a preoperative LT knee , DOS 09/22/24 NE. Pain management agreement reviewed and signed. Allergies aspirin [ASPIRIN] Allergy (Intermediate, Verified 09/17/24 09:48) heartburn/hives meperidine [Demerol] Adverse Reaction (Intermediate, Verified 09/17/24 09:48) GI upset HPI HPI Pre-Lt Knee 09/22/24 NE: Details: Patient presents to the office today for his preoperative history and physical examination pending left knee arthroscopy on 09/22/[address] De La Rosa. Original date of injury was in January of 2024 when a retaining wall with a boulder hit his left knee. 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 [facility] Medical History Encounter for screening laboratory testing for COVID-19 virus Nasal congestion Elevated bilirubin Liver lesion Right knee pain Tear of medial meniscus of right knee Physical exam Screening PSA (prostate specific antigen) Physical exam Screening for colon cancer History of COVID-19 Cardiomyopathy HHT (hereditary hemorrhagic telangiectasia) Low back pain radiating to both legs History of pituitary tumor Pre-op evaluation Osteopenia Macroprolactinoma Prolactinoma Surgical History Hx of meniscectomy of right knee History of repair of ACL Hx of cataract extraction Hx of blepharoplasty Hx of eye surgery Hx of tonsillectomy Family History Father Cancer Mother Diabetes Social History Household Members: Spouse Housing: House Patient Tobacco Use Status: Never used Tobacco e-Cigarette/Vaping Use: Never Used Second Hand Smoke Exposure: No service: Yes Current occupational status: employed and retired 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 Resp Other: No audible wheezing Effort & Inspection: normal respiratory effort Cardio Other: Radial pulse palpable with no rythmic abnormalities Back/Spine/Pelvis Cervical Spine: normal cervical lordosis Skin General skin exam: no rashes or lesions noted Neuro General: no focal motor deficits Extrem Other: Left knee with tenderness to palpation medial joint line and sharp medial Susan's. 0-125 degrees of motion. Mild gait antalgia. No effusion. Psych Appearance: grossly normal and well kempt Mental Status: mental status grossly normal Speech and movement: Normal speech and movement present Affect: normal affect Attitude: cooperative Assessment & Plan Assessment & Plan (1) Tear of medial meniscus of left knee: Code(s): S83.242A - Other tear of medial meniscus, current injury, left knee, initial encounter Category: Medical Plan I discussed in detail the procedure and what to expect pre and post operatively. We discussed the risks, benefits and alternatives to the surgery as well as the rehabilitation course. The risks; which include, but are not limited to infection, bleeding, nerve injury, ongoing pain, swelling, and stiffness, perioperative risk of injury to bones and soft tissues, and blood clots. Post operative medications were sent to the pharmacy, Hydrocodone-Acetaminophen, while in the office today. The patient was instructed that he should obtain the prescription prior to surgery but should not consume until after the procedure; as these should only be taken for postoperative pain management. Should the patient take these medications before surgery, a refill will not be sent to the pharmacy until their scheduled refill date. hydrocodone-acetaminophen 5-325 mg (Vicodin) PO Q8H PRN, quantity 28 tabs for 7 days I?ve answered all questions and with their understanding they have consented to move forward with left knee arthroscopy with Dr. De La Rosa. Left knee MRI obtained on 05/15/2024: IMPRESSION: Lateral meniscal tear, posterior horn and body. Joint effusion, small to moderate amount. Small bilateral posterior cyst. Medications: New hydrocodone-acetaminophen 5-325 mg Partial Fill upon patient request. 1 tab PO Q8H 7 days PRN 21 tabs 0RF pain Coding Level of Care Code Global (62530) Diagnoses Tear of medial meniscus of left knee S83.242A
[2024-09-17 09:49] VITALS: BMI 28.2
== END 2024-09-17 09:57 | disposition home or self-care (01) ==
LOC: HO.HOS 09:42
PROVIDERS: PCP Nurse Practitioner Family; Visit Provider Physician Assistant
DX: S83.242A Other tear of medial meniscus, current injury, left knee, initial encounter (principal)
CPT/HCPCS: 99024

== ENCOUNTER → 2024-09-17 09:41 | Outpatient (BNVA) | payer MEDICARE, SELFPAY | PROVIDERS: PCP Nurse Practitioner Family; Visit Provider Physician Assistant | DX: S83.242A Other tear of medial meniscus, current injury, left knee, initial encounter (principal) | CPT/HCPCS: 99212 ==

== ENCOUNTER 2024-09-22 07:21 | Day surgery (SDC) | payer MEDICARE, SELFPAY ==
[2024-09-17 08:50] VITALS: BMI 28.3
--- NOTE | 2024-09-17 14:07 | P.CONAN_ITS ---
HPI - Anesthesia Eval Consult details Narrative: 73yo M for Left Knee Arthroscopy with medial meniscectomy PMFSH Active Problems Active Problems: All Active Problems Tear of medial meniscus of left knee (Acute) Epistaxis (Acute) Internal derangement of left knee (Acute) URI (upper respiratory infection) (Acute) Skin lesion (Acute) Dyslipidemia (Acute) Left knee pain (Acute) [place] syndrome (Acute) Ascending aorta dilatation (Acute) Tubular adenoma of colon (Acute) Iron deficiency anemia (Chronic) Somatic dysfunction of left sacroiliac joint (Acute) Hematuria (Acute) Left hip pain (Acute) Hearing loss (Acute) Systolic murmur (Acute) Vitamin D deficiency (Acute) Pre-op examination (Acute) HHT (hereditary hemorrhagic telangiectasia) (Acute) Low back pain radiating to both legs (Acute) Osteopenia (Acute) Macroprolactinoma (Acute) Prolactinoma (Acute) Past Medical History Medical History Encounter for screening laboratory testing for COVID-19 virus Nasal congestion Elevated bilirubin Liver lesion Right knee pain Tear of medial meniscus of right knee Physical exam Screening PSA (prostate specific antigen) Physical exam Screening for colon cancer History of COVID-19 Cardiomyopathy HHT (hereditary hemorrhagic telangiectasia) Low back pain radiating to both legs History of pituitary tumor Pre-op evaluation Osteopenia Macroprolactinoma Prolactinoma Family History Family History Father Cancer Mother Diabetes Family history of problems with anesthesia: No Surgical History Surgical History Hx of meniscectomy of right knee History of repair of ACL Hx of cataract extraction Hx of blepharoplasty Hx of eye surgery Hx of tonsillectomy History of Problems with Anesthesia: No Social History Social History Household Members: Spouse Housing: House Patient Tobacco Use Status: Never used Tobacco e-Cigarette/Vaping Use: Never Used Second Hand Smoke Exposure: No service: Yes Current occupational status: employed and retired 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 Normal LV ejection fraction at 60-65% with mild LVH with impaired relaxation filling pattern 2. Mild aortic regurgitation secondary to ascending aortic pathology 3. Moderate ascending aortic enlargement at 4.5 cm 4. No gross pericardial effusion Assessment and Plan Assessment Anesthesia Assessment: Chart Reviewed Final Anesthetic Review Family History of Problems with Anesthesia: No History of Problems with Anesthesia: No
[2024-09-22] VITALS (7 sets, daily range): BP systolic 118–144; BP diastolic 55–83; PULSE 56–93; RESP 16; TEMP 36.1–36.7; O2SAT 98–100; BMI 28.6
[2024-09-22] MEDS: Lactated Ringers 1,000 ML 100 ML IVCONT (09:07)
--- NOTE | 2024-09-22 10:11 | MHC.SHP ---
Pre-Procedural Eval Section A - 24 Hr Update-Section A only Date of Service: 09/22/24 The patient is an INPATIENT: No Changes since office visit: No Cold of Flu in the past 2 weeks, No New Medical Problems, No Changes in Medication and No Patient answered all questions The patient has been examined within 24 hours of the surgical procedure. The History & Physical has been completed within 30 days and I have reviewed it.: Yes Section B - Complete if H&P > 30 days Chief Complaint: Other tear of medial meniscus, current injury, lef Allergies: Allergies Allergy/AdvReac Type Severity Reaction Status Date / Time aspirin [ASPIRIN] Allergy Intermediate heartburn/h Verified 09/22/24 08:33 marcela meperidine [Demerol] AdvReac Intermediate GI upset Verified 09/22/24 08:33 Plan I have reviewed the history and physical and performed a pertinent physical examination on my patient. No changes have occurred unless specified. Time Spent With Patient Time: Total time managing care of this patient today ____ minutes.
[2024-09-22] MEDS: ceFAZolin Sodium/Dextrose,Iso 2 GM/50 ML PIGGYBACK IV (10:20)
--- NOTE | 2024-09-22 11:05 | P.BOP_ITS ---
Brief Operative Note Date of Service: 09/22/24 Pre-op diagnosis: Left knee MMT Post-op diagnosis: same Procedure: Partial medial meniscectomy, left knee Implants: none Surgeon: Harley De La Rosa MD Anesthesia: GLMA and local Was an Kettle Cleaner used for this Procedure?: No Estimated blood loss (mL): 20 Tourniquet time (min): 2 IV fluids (mL): 500 Pathology: none sent Condition: stable Disposition: PACU
--- NOTE | 2024-09-22 11:38 | PHA.MEDREC ---
Addendum entered by Angelica Walden RPh 09/22/24 11:44: [facility] reviewed Original Note: Pharmacy Consult ? Medication Reconciliation Pharmacy has reviewed the medication reconciliation done by nursing. Utilized claims to confirm med list.
--- NOTE | 2024-10-01 07:49 | P.OP_ITS ---
Operative Note Operative Note Date of Service: 09/22/24 Narrative: Date of Service: 09/22/24 Pre-op diagnosis: Left knee MMT Post-op diagnosis: same Procedure: Partial medial meniscectomy, left knee Implants: none Surgeon: Harley De La Rosa MD Anesthesia: GLMA and local Was an Dumb Waiter Operator used for this Procedure?: No Estimated blood loss (mL): 20 Tourniquet time (min): 2 IV fluids (mL): 500 Pathology: none sent Condition: stable Disposition: PACU Procedure in detail: Patient was brought to the operating room placed supine on the arthroscopic table and prepped and draped in standard sterile fashion. A time-out was called to identify proper site proper procedure proper surgeon and IV antibiotics per weight were administered. I began by exsanguinating the limb and insufflating tourniquet to 300 mm Hg. Then made a standard anterolateral stab incision. The knee was insufflated with saline and a 30 degree arthroscope was placed. There was grade 1 fibrillations of the patella but overall the suprapatellar pouch and the gutters were clean. I descended into the medial compartment where I made my medial portal under direct visualization. There was obvious of complex tear of the posterior horn of the medial meniscus. The root was intact and there was grade 1 cartialge change in the tibial plateau but minimal. I used a combination of biter shaver and cautery to remove unstable portions of the meniscus. Approximately 40% meniscal volume was removed. Once I was satisfied with this the ACL was examined and found to be intact and the lateral compartment also was in normal condition. I then removed all instrumentation and closed the portals with skin glue. 25 mL of 2% Marcaine with epinephrine was injected into the joint and the surrounding soft tissues. Patient was then placed in sterile dressing extubated brought recovery room stable condition. There were no known complications.
== END 2024-09-22 12:40 | disposition home or self-care (01) ==
LOC: HO.SSS 07:21
PROVIDERS: PCP Nurse Practitioner Family; Visit Provider Orthopaedic Surgery
PROC: (CPT 29870; principal; 2024-09-22 10:50)
DX: S83.242A Other tear of medial meniscus, current injury, left knee, initial encounter (principal); M25.562 Pain in left knee; M25.462 Effusion, left knee; R26.89 Other abnormalities of gait and mobility; W22.8XXA Striking against or struck by other objects, initial encounter; X50.1XXA Overexertion from prolonged static or awkward postures, initial encounter; Y93.H3 Activity, building and construction; Y92.69 Other specified industrial and construction area as the place of occurrence of the external cause; Y99.0 Civilian activity done for income or pay; K76.9 Liver disease, unspecified; E80.7 Disorder of bilirubin metabolism, unspecified; D35.2 Benign neoplasm of pituitary gland; I42.9 Cardiomyopathy, unspecified; I78.0 Hereditary hemorrhagic telangiectasia; M85.80 Other specified disorders of bone density and structure, unspecified site; Z79.899 Other long term (current) drug therapy; Z88.5 Allergy status to narcotic agent; Z88.6 Allergy status to analgesic agent; Z98.890 Other specified postprocedural states
CPT/HCPCS: 29881; J0131; J0171; J0690; J1100; J2003; J2250; J2405; J2704; J2795; J3010

== ENCOUNTER → 2024-09-22 07:21 | Outpatient (BNV) | payer MEDICARE, SELFPAY | PROVIDERS: PCP Nurse Practitioner Family; Visit Provider Orthopaedic Surgery | DX: S83.232A Complex tear of medial meniscus, current injury, left knee, initial encounter (principal) | CPT/HCPCS: 29881 ==

== ENCOUNTER 2024-09-29 09:55 | Outpatient (AMB) | payer MEDICARE, SELFPAY ==
--- NOTE | 2024-09-29 10:02 | A.OFFVIS_ITS ---
Intake Visit Reasons: PO-Lt Knee 09/22/24 NE Intake Note: Justice is a 73 year old male who presents today for a post operative appointment s/p left knee arthroscopy, partial medial meniscectomy 09/22/24 NE. Patient reports he was having some pain in his calf but he has been doing his stretches which gave him relief. Allergies aspirin [ASPIRIN] Allergy (Intermediate, Verified 09/29/24 10:04) heartburn/hives meperidine [Demerol] Adverse Reaction (Intermediate, Verified 09/29/24 10:04) GI upset HPI HPI PO-Lt Knee 09/22/24 NE: Details: Mr. Amos is a 73-year-old male who presents to the office today status post left knee partial medial meniscectomy performed by Dr. De La Rosa on 09/22/2024. Overall the patient is doing very well. He has no complaints. He reports that the sharp pain that he had prior to surgery has since resolved. [facility] Medical History Encounter for screening laboratory testing for COVID-19 virus Nasal congestion Elevated bilirubin Liver lesion Right knee pain Tear of medial meniscus of right knee Physical exam Screening PSA (prostate specific antigen) Physical exam Screening for colon cancer History of COVID-19 Cardiomyopathy HHT (hereditary hemorrhagic telangiectasia) Low back pain radiating to both legs History of pituitary tumor Pre-op evaluation Osteopenia Macroprolactinoma Prolactinoma Surgical History Hx of meniscectomy of right knee History of repair of ACL Hx of cataract extraction Hx of blepharoplasty Hx of eye surgery Hx of tonsillectomy Family History Father Cancer Mother Diabetes Social History Household Members: Spouse Housing: House Patient Tobacco Use Status: Never used Tobacco e-Cigarette/Vaping Use: Never Used Second Hand Smoke Exposure: No service: Yes Current occupational status: employed and retired 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 No surrounding erythema or drainage. No signs of infection. Sutures intact. Range of motion 0-120. Calf is supple and nontender. Negative Homans. NVI. Assessment & Plan Assessment & Plan (1) Tear of medial meniscus of left knee: Code(s): S83.242A - Other tear of medial meniscus, current injury, left knee, initial encounter Category: Medical Plan Mr. Amos is a 73-year-old male who presents to the office today status post left knee partial medial meniscectomy performed by Dr. De La Rosa on 09/22/2024. Overall the patient is doing very well. He has no complaints. He reports that the sharp pain that he had prior to surgery has since resolved. While in the office today, sutures removed and Steri-Strips were applied. I instructed the patient that the Steri-Strips will fall off on their own. If they still remain intact in 1 week he may remove them. If they fall off before 1 week he does not need to replace him. He can resume back to normal activities as tolerated using pain as his guide. He will follow up PRN, sooner if needed. Coding Level of Care Code Global (01594) Diagnoses Tear of medial meniscus of left knee S83.242A
== END 2024-09-29 10:23 | disposition home or self-care (01) ==
LOC: HO.HOS 09:56
PROVIDERS: PCP Nurse Practitioner Family; Visit Provider Physician Assistant
DX: S83.242A Other tear of medial meniscus, current injury, left knee, initial encounter (principal)
CPT/HCPCS: 99024

== ENCOUNTER → 2024-09-29 09:55 | Outpatient (BNVA) | payer MEDICARE, SELFPAY | PROVIDERS: PCP Nurse Practitioner Family; Visit Provider Physician Assistant | DX: Z47.89 Encounter for other orthopedic aftercare (principal); S83.242D Other tear of medial meniscus, current injury, left knee, subsequent encounter; Z98.890 Other specified postprocedural states | CPT/HCPCS: 99212 ==

== ENCOUNTER → 2024-12-16 07:56 | Outpatient (REF) | payer MEDICARE, SELFPAY ==
--- OUTSIDE RECORDS SUMMARY | 2024-12-16 07:59 | XMS_ITS | Patient Health Record ---
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 Cable Tool Name Role Phone Stevan Joshi Primary Care Provider Unayandy [place] Jane Unavailable [phone] Allergies Allergen (clinical drug ingredient) Drug/Non Drug Allergy documented on EMR Reaction Allergy Type Onset Date Status ibuprofen Advil hives/ heart burn Drug Allergy Active Aleve hives/ heart burn Drug Allergy Active aspirin Aspirin hives/ heart burn Drug Allergy Active Motrin hives/ heart burn Drug Allergy Active acetaminophen Tylenol hives/ heart burn Drug Allergy Active Reason For Referral No Information Medications Medication SIG (Take, Route, Frequency, Duration) Notes Start Date End Date Status Cabergoline 0.5 MG Orally A ctive Ferrous Sulfate 324 (65 Fe) MG Orally Active Vitamin D3 Active Social History Tobacco Use: Social History Observation Description Date Details (start date - stop date) Never Smoker NA - NA Tobacco Use/Smoking Question Answer Notes Are you a: nonsmoker Additional Findings: Tobacco Non-User Current no n-smoker Alcohol Screen Question Answer Notes Did you have a drink containing alcohol in the p ast year? Yes Points 0 Interpretation Negative Tobacco use other than smoking: Question Answer Notes Are you an other tobacco user? No Plan Of Treatment Pending Test Test Name Order Date X ray : Foot, left 2V 09/10/2018 X ray : Foot, right 2V 09/10/2018 Insurance Providers Payer Name Payer Address Payer Phone Subscriber Number Group Number Insured Name Patient Relationship to Insured Coverage Start Date Coverage End Date [facility] [address] [place] [address] [phone] [id number] Justice Amos Self - patient is the insured Medicare National [employer] [address] [place] [address] [id number] Justice Amos Self - patient is the insured Medical (General) History Medical History History ICD Code Back,Hip,and Knee pain Measles Mumps Chicken pox Surgical History Surgery Date(Month/Year) laser surgery-complications: detatched r mathew 2018
--- NOTE | 2024-12-16 08:24 | CA_ITS ---
Transthoracic Echocardiogram Patient (Last, First, Middle): Justice Amos R Gender: Male Date of : 1950 Age: 74 Procedure Date: 12/16/2024 Procedure Type: Transthoracic Echocardiogram Location: OP Height: 180.34 cm Weight: 91.63 kg BSA: 2.12 m2 Heart Rate: bpm BP: 135 / 76 mmHg Regional Forester: VAHID Referring MD: Stevan Soto [facility]- Ct Tech: Gonzalo Ray MD Symptoms: I77.810 - Thoracic aortic ectasia Study Quality: Adequate ECG Rhythm: Sinus Conclusions: - 1. Normal LV ejection fraction of 65-70% with impaired relaxation filling pattern 2. Moderately dilated left atrium 3. Mild aortic regurgitation 4. Moderately dilated ascending aorta at 4.5 cm 5. Normal RV systolic pressure 6. No gross pericardial effusion Findings Left Ventricle Normal left ventricular size, thickness, and systolic function. The visually estimated ejection fraction is between 65-70%. Spectral Doppler is indicative of an impaired relaxation filling pattern. E/E prime ratio is between 8 and 15 consistent with indeterminate filling pressures. Right Ventricle Normal right ventricular cavity size and systolic function. Atria The left atrium is moderately dilated. There is lipomatous hypertrophy of the interatrial septum. There is no evidence of interatrial shunt. The right atrium is likely dilated. Aortic Valve Normal aortic valve structure and function. There is no aortic valve stenosis. There is mild aortic valve regurgitation. Mitral Valve There is mild anterior and posterior mitral leaflet thickening. There is mild mitral annular calcification. There is trace mitral valve regurgitation. There is no mitral valve stenosis. Pulmonic Valve The pulmonic valve is likely normal. Tricuspid Valve Normal tricuspid valve structure. There is trace tricuspid valve regurgitation. The right ventricular systolic pressure is normal. The right ventricular systolic pressure is 23 mmHg. Normal right atrial pressure. There is no evidence of pulmonary hypertension. Great Vessels The pulmonary artery was not well visualized. There is moderate dilatation of the ascending aorta measuring 4.50 cm. Venous The inferior vena cava is normal in size and collapses greater than 50% with inspiration. Pericardium/Pleural There is no evidence of pericardial effusion. Prior Study Comparison No significant change compared to prior study dated: 12/18/2023. Measurements 2D Linear Measurements IVSd: 1.06 0.6-0.9/0.6-1.0 cm LVIDd: 5.11 3.9-5.3/4.2-5.9 cm LVIDd Index: 2.41 2.4-3.2/2.2-3.1 cm/m2 LVIDs: 3.10 2.0-3.6 cm LVPWd: 0.82 0.7-1.1 cm LA Diam: 3.70 2.7-3.8/3.0-4.0 cm LAIDs Index: 1.75 1.5-2.3 cm/m2 LV Mass: 217.03 67-162/88-224 g LV Mass Index: 102.37 43-95/49-115 g/m2 LVOT Diam: 2.20 3.0+(-)1.3 cm 2D Systolic Function EF 4C: 64.10 >55% EF 2C: 68.50 >55% EF BiP: 66.30 >55% Mitral Valve MV Pk E: 0.83 MV PK A: 1.08 MV Decel Time: 329.00 E/A: 0.80 E'Lateral: 7.07 E'Medial: 4.46 E/E' Med: 18.50 E/E' Lat: 11.70 PHT: 96.00 MVA PHT: 2.29 Decel [place]: 2.51 Aortic Valve AoV Pk [place]: 1.91 AoV Mn [place]: 1.27 AoV VTI: 0.47 AoV Pk Grad: 15.00 Aov Mn Grad: 8.00 MORALES Cont.VTI: 3.04 LVOT LVOT Pk [place]: 1.64 LVOT Mn [place]: 1.05 LVOT VTI: 0.38 LVOT Pk Grad: 11.00 LVOT Mn Grad: 5.00 LVOT Diam: 2.20 LVOT Area: 3.80 Diastolic Function MV Pk E: 0.83 MV Pk A: 1.08 E/A: 0.80 E'Medial: 4.46 E/E' Med: 18.50 E' Laterial: 7.07 E/E' Lat: 11.70 Right Ventricle TAPSE (mm): 22.60 TVS' [place]: 10.60 Tricuspid Valve TR Pk [place]: 2.23 TR Pk Grad: 20.00 RA Press: 3.00 RVSP: 23.00 Great Vessels Aorta Sinus of Valsalva: 4.20 2.0-3.[address] [place]: 3.61 1.7-3.4 cm Ao Asc: 4.50 2.1-3.4 cm Ao Arch: 3.90 Updated in Other Vendor System with Status of Final Gonzalo Ray MD electronically signed on 12/17/2024 11:52:48 AM with status of Final
== END ==
LOC: HO.CARD 07:56
PROVIDERS: PCP Nurse Practitioner Family; Visit Provider Nurse Practitioner Family
DX: I77.810 Thoracic aortic ectasia (principal)
CPT/HCPCS: 93306

== ENCOUNTER → 2024-12-16 08:24 | Outpatient (BNV) | payer MEDICARE, SELFPAY | PROVIDERS: PCP Nurse Practitioner Family; Visit Provider Internal Medicine Cardiovascular Disease | DX: I51.89 Other ill-defined heart diseases (principal); I71.21 Aneurysm of the ascending aorta, without rupture | CPT/HCPCS: 93306 ==

== ENCOUNTER 2024-12-30 09:26 | Outpatient (REF) | payer MEDICARE, SELFPAY ==
--- OUTSIDE RECORDS SUMMARY | 2024-12-30 09:53 | XMS_ITS | Patient Health Record ---
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 Operator Name Role Phone Stevan Joshi Primary Care Provider Unayandy [place] Jane Unavailable [phone] Allergies Allergen (clinical drug ingredient) Drug/Non Drug [...] Insured Coverage Start Date Coverage End Date [facility] [address] [place] [address] [id number] Justice Amos Self - patient is the insured Medicare National [employer] [address] [place] [address] [id number] Justice Amos Self - patient is the insured Medical (General) History Medical History History ICD Code Back,Hip,and Knee pain Measles Mumps Chicken pox Surgical History Surgery Date(Month/Year) laser surgery-complications: detatched r mathew 2018
[2024-12-30 13:24] LABS: MANUAL DIFF FLAG NO
[2024-12-30 13:38] LABS: Appearance Urine Clear; Glucose Urine UA Negative (Negative); PH 5.5 (5.0-9.0); Specific Gravity - Urine 1.010 (1.005-1.025); UMIC TRIGGER UACC YES
[2024-12-30 13:45] LABS: Hematocrit 34.4 % (42.0-52.0); Hemoglobin 10.7 g/dl (14.0-18.0); Imm Gran Abs Auto 0.01 X10*3/uL (0.00-0.03); Imm Gran Pct Auto 0.2 % (0.0-0.4); Lymphocytes Absolute Auto 1.4 X10*3/uL (1.2-4.9); Mean Corpuscular HGB Conc 31.1 g/dl (31.0-36.0); Mean Corpuscular Hemoglobin 25.5 pg (27.0-33.0); Mean Corpuscular Volume 81.9 fL (80.0-98.0); NRBC Abs Auto 0.000 X10*3/uL (0.0-0.012); NRBC Pct Auto 0.0 /100WBC (0.0-0.2); Platelet Count 234 X10*3/uL (160-400); Red Blood Count 4.20 X10*6/uL (4.60-5.80); White Blood Count 5.6 X10*3/uL (4.8-10.8)
[2024-12-30 14:22] LABS: Alanine Aminotransferase 20 U/L (0-40); Albumin Level 4.6 g/dL (3.5-5.0); Alkaline Phosphatase 44 U/L (39-117); Anion Gap 12 (12-20); Aspartate Amino Transferase 27 U/L (5-37); Blood Urea Nitrogen 16 mg/dL (9-16); Calcium 9.3 mg/dL (8.4-10.2); Carbon Dioxide 26 mmol/L (22-29); Chloride 109 mmol/L (96-108); Cholesterol 123 mg/dL (<200); Estimated Glomerular Filt Rate > 60; HDL Cholesterol 42 mg/dL (>40); Iron 23 mcg/dL (45-160); Percent Iron Saturation 6 % (15-50); Potassium 4.7 mmol/L (3.3-5.1); Sodium 142 mmol/L (135-145); Total Iron Binding Capacity 390 mcg/dL (228-428); Total Protein 6.8 g/dL (6.5-8.0); Triglycerides 82 mg/dL (<150); Unsaturated Iron Binding 367 ug/dL
[2024-12-30 14:23] LABS: Ferritin 8 ng/mL (20-250)
== END 2024-12-30 09:27 | disposition home or self-care (01) ==
LOC: HO.HMGCLDS 09:26
PROVIDERS: PCP Nurse Practitioner Family; Visit Provider Nurse Practitioner Family
DX: I78.0 Hereditary hemorrhagic telangiectasia (principal); E78.5 Hyperlipidemia, unspecified
CPT/HCPCS: 36415; 80053; 80061; 81001; 82728; 83540; 84443; 85025

== ENCOUNTER 2025-01-05 08:01 | Outpatient (AMB) | payer MEDICARE, SELFPAY ==
--- NOTE | 2025-01-05 08:11 | A.OFFPC_ITS ---
Vital Signs 01/05/25 08:12 Height 5 ft 11 in Weight 208 lb BMI 29.0 BP 124/80 Blood Pressure Location Lt brachial Position Sitting Respiration 16 Pulse 53 Pulse Source Pulse Oximeter Temp 98.3 F Temp Source Oral Pulse Oximetry (%) 98 Oxygen Delivery Method Room Air Intake Visit Reasons: PE - see comments Pbx Teacher Required: No Accompanied by: Self / Same As Patient Allergies aspirin (ASPIRIN) Allergy (Intermediate, Verified 01/05/25 08:14) heartburn/hives meperidine (Demerol) Adverse Reaction (Intermediate, Verified 01/05/25 08:14) GI upset Tobacco use date assessed: 01/05/25 Fall risk assessment: No Falls in past year Last assessed Fall Risk: 01/05/25 Dental Screening Dental Screen Date: 01/05/25 Did you have a dental visit in the last 12 months?: Yes Did you have a dental problem in the last 6 months where you did not have access to dental care?: No Was dental information given to patient?: Patient has dentist HPI PE - see comments HPI Details History of Present Illness The patient is a 74-year-old male presenting for a physical examination. He denies experiencing any chest pain, dyspnea, abdominal pain, hematochezia, constipation, diarrhea, or any suicidal or homicidal ideations. The patient has a history of Hereditary Hemorrhagic Telangiectasia (HHT) and experiences intermittent epistaxis, which has been stable recently. He had previously stopped taking iron supplements to monitor fluctuations in his iron levels and blood counts, which he observed through the patient portal. Due to low iron levels, he plans to resume iron supplementation, starting with once daily and increasing to twice daily as needed. The patient follows up with hematology and endocrinology for management of his conditions, including a macroprolactinoma. He also has a history of a systolic murmur and ascending aorta dilation, with impaired relaxation of the left atrium noted on echocardiogram. The patient has not experienced any recent changes in these conditions but will be referred to cardiology for further evaluation. Additionally, the patient has vitiligo affecting the groin region and skin. His lungs are clear to auscultation, and no other significant issues were noted during the examination. Laboratory tests have shown low iron and hemoglobin levels, prompting the decision to restart iron supplementation. The patient is aware of the need for a PSA test in the near future and is due for a colon cancer screening between May 2025 and May 2026. Health Maintenance - Colon cancer screening scheduled betwe en May 2025 and May 2026 - PSA test planned for the near future Social History Review of Systems - Cardiovascular: Denies chest pain, ort hopnea, or paroxysmal nocturnal dyspnea - Respiratory: Denies dyspnea - Gastrointestinal: Denies abdominal sebastián n, hematochezia, constipation, or diarrhea - Psychiatric: Denies suicidal or homici kimberly ideations Physical Exam General: Cooperative, healthy appearing, comfortable, no acute distress and well developed Orientation: Patient oriented x3 Limitations: No limitations Head: Normal to inspection Ears: Hearing grossly normal bilaterally Nose: Normal external nose present Face and sinus: Normal facial exam Eyes: Appearance normal, both eyes and all related structures Neck: Normal visual inspection and Yes full ROM Respiratory: Normal respiratory effort and able to speak in complete sentences. Clear to auscultation bilaterally Cardiovascular: Systolic murmur present, regular rate and rhythm. Normal S1 and S2 GI: Normal to inspection. Soft to palpation and nontender : Testicles without masses/lesions and no hernias appreciated Skin: Vitiligo noted in the groin region, otherwise no rashes or lesions noted Neuro: Patient oriented x3 Extremities: Normal to inspection Results - Labs: Low iron and hemoglobin levels Plan The patient will resume iron supplementation, starting with once daily and increasing to twice daily as needed, to address the low iron and hemoglobin levels. He will continue follow-ups with hematology and endocrinology for ongoing management of Hereditary Hemorrhagic Telangiectasia and m acroprolactinoma. A referral to cardiology is planned for further evaluation of the systolic murmur, ascending aorta dilation, and impaired relaxation of the left atrium. The patient is also advised to undergo a PSA test in the near future and is reminded of the upcoming colon cancer screening scheduled between May 2025 and May 2026. Discussion Notes I discussed with the patient the importance of resuming iron supplementation to manage his iron deficiency anemia and the need for continued follow-up with hematology and endocrinology for his existing conditions. We also talked about t he referral to cardiology for further evaluation of his cardiovascular issues and the importance of completing the PSA test and colon cancer screening as scheduled. Patient Instructions - Start taking iron supplements once frandy ly, increasing to twice daily if needed. - Continue follow-ups with hematology an d endocrinology. - Schedule an appointment with cardiolog y for further evaluation. - Plan for a PSA test soon. - Remember to complete colon cancer scre ening between May 2025 and May 2026. [facility] Medical History Screening PSA (prostate specific antigen) Encounter for screening laboratory testing for COVID-19 virus Nasal congestion Elevated bilirubin Liver lesion Right knee pain Tear of medial meniscus of right knee Physical exam Physical exam Screening for colon cancer History of COVID-19 Cardiomyopathy HHT (hereditary hemorrhagic telangiectasia) Low back pain radiating to both legs History of pituitary tumor Pre-op evaluation Osteopenia Macroprolactinoma Prolactinoma Surgical History Hx of meniscectomy of right knee History of repair of ACL Hx of cataract extraction Hx of blepharoplasty Hx of eye surgery Hx of tonsillectomy Family History Father Cancer Mother Diabetes Social History Household Members: Spouse Housing: House Patient Tobacco Use Status: Never used Tobacco e-Cigarette/Vaping Use: Never Used Second Hand Smoke Exposure: No service: Yes Current occupational status: employed and retired 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 1. Little interest or pleasure in doing things: not at all 2. Feeling down, depressed, or hopeless: not at all 3. Trouble falling or staying asleep, or sleeping too much: more than half the days 4. Feeling tired or having little energy: several days 5. Poor appetite or overeating: several days 6. Feeling bad about yourself - or that you are a failure or have let yourself or your family down: not at all 7. Trouble concentrating on things, such as reading the newspaper or watching television: not at all 8. Moving or speaking so slowly that other people could have noticed. Or the opposite - being so fidgety or restless that you have been moving around a lot more than usual: not at all 9. Thoughts that you would be better off or of hurting yourself in some way: not at all Total score: 4 Depression Screening Interpretation: Negative Depression Screening Done: Yes 19851 - PHQ-9 Billing: Yes Source: Developed by Drs. Yaya Elizabeth, Isabella Li, Tan Christian and colleagues, with an educational gen from [employer]. Thrive Questionnaire Date Thrive assessed: 05/25/24 I am a: Patient What is your living situation today?: I have a steady place to live Within the past 12 months, did the food you bought not last and you didn't have the money to get more?: Never true Within the past 12 months, did you worry whether your food would run out before you got money to buy more?: Never true Do you have trouble paying for medicines?: No Do you have trouble getting transportation to medical appointments?: No Do you have trouble paying your heating and electricity bill?: No Do you have trouble taking care of your child, family member or friend?: No Do you have trouble with day-to-day activities such as bathing, preparing meals, shopping, managing finances, etc.?: I choose not to answer this question Are you currently unemployed and looking for a job?: I choose not to answer this question Are you interested in more education?: I choose not to answer this question Please select the resources that you would like help with: None Currently or been in a relationship where the following occur: I choose not to answer THRIVE Score: 0 MARK-7 AMB Questionnaire MARK-7 Date MARK - 7 assessed: 01/05/25 Feeling nervous, anxious, or on edge: 0 = Not at all Not being able to stop or control worryin = Not at all Worrying too much about different things: 0 = Not at all Trouble relaxin = Not at all Being so restless that it is hard to sit still: 0 = Not at all Becoming easily annoyed or irritable: 0 = Not at all Feeling afraid as if something awful might happen: 0 = Not at all Total MARK-7 score (0-4 normal; 5-9 mild; 10-14 moderate; 15-21 severe): 0 Source: Developed by Isabella Lu B.W. Guillermo, Tan Christian and colleagues, with an educational gen from [employer]. MARK-7 Assessment Billing MARK-7 Assessment Tool: MARK-7 Assessment 04250 Physical exam (Primary Care) Vital Signs: Last Vital Signs Temp 98.3 F 01/05/25 08:12 Pulse 53 01/05/25 08:12 Resp 16 01/05/25 08:12 BP 124/80 01/05/25 08:12 Pulse Ox 98 01/05/25 08:12 Oxygen Delivery Method Room Air 01/05/25 08:12 BMI result Body Mass Index 29.0 Tobacco/Smoking Status: Tobacco use Status Tobacco use date assessed 01/05/25 01/05/25 08:18 Patient Tobacco Use Status Never used Tobacco 01/05/25 08:18 e-Cigarette/Vaping Use Never Used 01/05/25 08:18 PHQ-9: PHQ-9 Score PHQ-9: Total score 4 01/05/25 08:18 Depression Screening Interpretation: Negative Thrive Assessment: Date of Thrive Assessment Date Thrive assessed 05/25/24 01/05/25 08:18 Currently or been in a relationship where the following occur: I choose not to answer Coding Level of Care Code Est Pt Prev Care >65y(11827) Diagnoses Screening PSA (prostate specific antigen) Z12.5 Systolic murmur R01.1 Ascending aorta dilatation I77.810 Additional Codes MARK-7 Assessment Billing - MARK-7 Assessment Tool: MARK-7 Assessment 42886 ([id number]) PHQ-9 - 15782 - PHQ-9 Billing: Yes ([id number]) Assessment & Plan Assessment & Plan (1) Screening PSA (prostate specific antigen): Code(s): Z12.5 - Encounter for screening for malignant neoplasm of prostate Category: Medical (2) Systolic murmur: Code(s): R01.1 - Cardiac murmur, unspecified Category: Medical (3) Ascending aorta dilatation: Code(s): I77.810 - Thoracic aortic ectasia Category: Medical Plan . Orders: Orders Prostate Specific Antigen Scr Today Z12.5 - Encounter for screening for malignant neoplasm of prostate Referrals Cardiology Referral I77.810 - Thoracic aortic ectasia, R01.1 - Cardiac murmur, unspecified
[2025-01-05 08:12] VITALS: BP 124/80; PULSE 53; RESP 16; TEMP 36.8; O2SAT 98; BMI 29.0
== END 2025-01-05 08:42 | disposition home or self-care (01) ==
LOC: HO.HMCC 08:02
PROVIDERS: PCP Nurse Practitioner Family; Visit Provider Nurse Practitioner Family
DX: Z00.00 Encounter for general adult medical examination without abnormal findings (principal); R01.1 Cardiac murmur, unspecified; I77.810 Thoracic aortic ectasia; Z12.5 Encounter for screening for malignant neoplasm of prostate

== ENCOUNTER → 2025-01-05 08:01 | Outpatient (BNVA) | payer MEDICARE, SELFPAY | PROVIDERS: PCP Nurse Practitioner Family; Visit Provider Nurse Practitioner Family | DX: Z00.00 Encounter for general adult medical examination without abnormal findings (principal); R01.1 Cardiac murmur, unspecified; I77.810 Thoracic aortic ectasia | CPT/HCPCS: 96127; 99397 ==

== ENCOUNTER 2025-05-03 14:43 | Outpatient (AMB) | payer MEDICARE, SELFPAY ==
[2025-05-03 14:47] VITALS: BP 128/80; BMI 28.6
--- NOTE | 2025-05-03 14:47 | A.OFFVIS_ITS ---
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/Thoracic aortic ectasi Intake Note: New patient dx cardiac murmur and thoracic aortic estasi feeling good Dental Technician Required: No Allergies aspirin (ASPIRIN) Allergy (Intermediate, Verified 01/05/25 08:14) heartburn/hives meperidine (Demerol) Adverse Reaction (Intermediate, Verified 01/05/25 08:14) GI upset Medication List - Last Reconciled 05/03/25 by Gonzalo Ray MD atorvastatin 20 mg PO BEDTIME cabergoline 0.25 mg (1/2 x 0.5 mg) PO QWEEK ferrous sulfate 324 mg PO DAILY HPI Comments Details: Thank you for referring Ivana in cardiology consultation today for management of his thoracic aortic aneurysm. He is a pleasant 74-year-old male with prior history of hyperlipidemia, noted thoracic aortic aneurysm by echocardiogram few years ago. Over the last 3 years he has had annual echocardiogram which has shown stable ascending aortic aneurysm at 4.5 cm. He denies any symptoms from cardiac perspective. He stated remains very active and denies any exertional chest pain or shortness of breath. He denies any lightheadedness, syncope. He takes his statin therapy without any side effects. Denies any prolonged palpitation irregular heartbeat. Comes for evaluation management of his thoracic aortic aneurysm. [facility] Medical History Ascending aortic aneurysm Screening PSA (prostate specific antigen) Encounter for screening laboratory testing for COVID-19 virus Nasal congestion Elevated bilirubin Liver lesion Right knee pain Tear of medial meniscus of right knee Physical exam Physical exam Screening for colon cancer History of COVID-19 Cardiomyopathy HHT (hereditary hemorrhagic telangiectasia) Low back pain radiating to both legs History of pituitary tumor Pre-op evaluation Osteopenia Macroprolactinoma Prolactinoma Surgical History Hx of meniscectomy of right knee History of repair of ACL Hx of cataract extraction Hx of blepharoplasty Hx of eye surgery Hx of tonsillectomy Family History Father Cancer Mother Diabetes Social History Household Members: Spouse Housing: House Patient Tobacco Use Status: Never used Tobacco e-Cigarette/Vaping Use: Never Used Second Hand Smoke Exposure: No service: Yes Current occupational status: employed and retired 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 [employer] Current occupational exposures/hazards: No Cognitive needs: No Hearing needs: No Vision needs: No Review of Systems Const Denies chills, Denies daytime sleepiness, Denies fatigue, Denies fever(s), Denies frequent falls, Denies poor appetite, Denies snoring, Denies stops breathing during sleep, Denies weakness, Denies weight gain and Denies weight loss Eyes Denies loss of vision ENT Denies dizziness and Denies hearing loss Card Denies chest pain, Denies claudication, Denies leg edema, Denies lightheadedness, Denies palpitations, Denies dyspnea, Denies dyspnea on exertion and Denies orthopnea Resp Denies cough, Denies excessive phlegm production, Denies dyspnea, Denies dyspnea on exertion, Denies snoring and Denies wheezing GI Denies abdominal pain, Denies hematochezia, Denies change in bowel habits, Denies nausea and Denies vomiting Denies dysuria and Denies urinary frequency Musc Denies arthralgias, Denies muscle weakness and Denies numbness Skin/Breast Denies nail changes and Denies rash Neuro Denies Abnormal speech present, Denies dizziness, Denies frequent falls, Denies loss of vision, Denies memory loss, Denies numbness and Denies weakness Psych Denies depression and Denies memory loss Endo Denies fatigue and Denies palpitations Ramiro/Lymph Reports easy bruising and Reports other (anemia) Aller/Immun Denies wheezing Physical Exam Vital Signs: Last Vital Signs BP 128/80 05/03/25 14:47 BMI result Body Mass Index 28.6 Const General: cooperative, comfortable, no acute distress, alert, awake and Physically active Nutritional Appearance: average body habitus Orientation/consciousness: patient oriented x3 Limitations: no limitations HEENT Head: Yes normocephalic and Yes atraumatic Neck Neck: Yes trachea midline, Yes supple and Yes no JVD Carotids: no bruits Resp Effort & Inspection: normal respiratory effort Auscultation: clear to auscultation bilaterally Cardio Jugular venous distension: no JVD Rate: regular rate Rhythm: regular rhythm Heart sounds: S1 normal heart sound present, S2 normal heart sound present, no click, no gallops, no murmurs and no rubs GI Auscultation: normal bowel sounds Skin General skin exam: no rashes or lesions noted Neuro General: patient oriented x3 and no focal motor deficits Speech: No Abnormal speech present Extrem General: Yes no clubbing, cyanosis or edema Psych Appearance: grossly normal Office Procedures EKG Details: EKGs shows normal sinus rhythm with Q-waves in lead 3 and AVF suggestive of inferior infarct goal most likely pseudo infarct pattern from body habitus [id number], Complete Assessment & Plan Assessment & Plan (1) Ascending aortic aneurysm: Code(s): I71.21 - Aneurysm of the ascending aorta, without rupture Category: Medical Plan: Ascending aortic aneurysm at 4.5 cm. Most likely etiology is probably aging and atherosclerotic. Although genetic etiology needs to be ruled out and will send him for genetic evaluation for genetic cause of TAAD. If no genetic etiologies identified I would suggest that his repair size would be 5.5 cm advised her repair strategies will be 5 cm. This was discussed with him. Pathophysiology of ascending aortic aneurysm was discussed. Potential of acute aortic syndrome was discussed with associated symptoms and to seek emergent care. He understands agrees. He is advised to avoid sudden strenuous isometric exercise. Recommend to continue pursue with regular physical activity. Continue statin therapy with target goal LDL less than 100 mg/dL. Follow-up echocardiogram in 1 year's time. Thank you for allowing me to partake in his care. Will follow up with him in 1 year's time Orders: Orders CA echo transthoracic complete 11 Months I71.21 - Aneurysm of the ascending aorta, without rupture Referrals Genetics Referral I71.21 - Aneurysm of the ascending aorta, without rupture Coding Level of Care Code New Pt Level 4 (41109) Diagnoses Ascending aortic aneurysm I71.21 CPT Codes EKG - CPT: 03011-[id number], Complete ([id number])
--- OUTSIDE RECORDS SUMMARY | 2025-05-03 21:15 | XMS_ITS | Patient Health Record ---
[facility] Organization [facility] [place] Address [address] [place] [address] Care Team Providers Care Lion Hunter Name Role Phone Stevan Joshi Primary Care Provider Unayandy Brooklyn Jane Unavailable [phone] Allergies Allergen (clinical drug ingredient) Drug/Non Drug [...] Insured Coverage Start Date Coverage End Date [facility] [address] [place] [address] [phone] [id number] Justice Amos Self - patient is the insured Medicare [employer] [address] [place] [address] [id number] Justice Amos Self - patient is the insured Medical (General) History Medical History History ICD Code Back,Hip,and Knee pain Measles Mumps Chicken pox Surgical History Surgery Date(Month/Year) laser surgery-complications: detatched r mathew 2018
== END 2025-05-03 15:09 | disposition home or self-care (01) ==
LOC: HO.HCS 14:44
PROVIDERS: PCP Nurse Practitioner Family; Visit Provider Internal Medicine Cardiovascular Disease
DX: I71.21 Aneurysm of the ascending aorta, without rupture (principal)
CPT/HCPCS: 93010; 99214

== ENCOUNTER → 2025-05-03 14:43 | Outpatient (BNVA) | payer MEDICARE, SELFPAY | PROVIDERS: PCP Nurse Practitioner Family; Visit Provider Internal Medicine Cardiovascular Disease | DX: I71.21 Aneurysm of the ascending aorta, without rupture (principal); E78.5 Hyperlipidemia, unspecified; Z79.899 Other long term (current) drug therapy | CPT/HCPCS: 93005; 99212 ==

== ENCOUNTER 2025-05-18 09:10 | Outpatient (REF) | payer MEDICARE, SELFPAY ==
--- NOTE | ~2025-05-18 | MR_ITS ---
CLINICAL HISTORY: D35.2 - Benign neoplasm of pituitary gland MR Brain with and without gadolinium Comparison: MR/SR - MR HEAD/BRAIN WO/W CON - 04/13/24 09:49 EST Findings: No restricted areas of diffusion is noted. A similar nonenhancing hypointense focus is noted along the right lateral margin of the pituitary gland. This measures 1.2 cm AP x 0.9 cm transverse x 1.3 cm in craniocaudal dimension. It is similar in size and morphology on comparison with the prior examination. It abuts up to 50% of the circumference of the cavernous portion of the right internal carotid artery. Mild mass effect is noted upon the pituitary gland and infundibulum. Mild chronic nonspecific high-signal periventricular and subcortical deep white matter foci are noted. Generalized cerebral atrophy is noted with ex vacuo dilatation of the ventricles. A cavum septum pellucidum is noted. No midline shift. No hydrocephalus. No abnormal area of enhancement otherwise noted. Mucosal thickening is noted within the paranasal sinuses. Retained fluid is noted within the left mastoid air cells. Normal flow voids are noted within the intra cerebral vasculature. Orbital contents are unremarkable. No focal bone lesion. IMPRESSION: 1. Similar size and morphology of the right sellar lesion on comparison to the prior examination. This document has been electronically signed by: Bharathi Hearn MD on 05/20/2025 10:50:38
--- OUTSIDE RECORDS SUMMARY | 2025-05-18 11:33 | XMS_ITS | Clinical Summary ---
Author Organization [facility] Address [address] [place] [address] Care Team Providers Care Safety Associate Name Role Phone Unknown Primary Care Provider [phone] Social History Tobacco Use Types Packs/Day Years Used Date Smoking Tobacco: Never Assessed Comments Unknown Sex and Gender Information Value Date Recorded Sex Assigned at Unknown 05/11/2025 10:02 AM EST Legal Sex Male 1:30 PM EST Gender Identity Male 05/11/2025 10:02 AM EST Sexual Orientation Other 05/11/2025 10 :02 AM EST Plan of Treatment Upcoming Encounters Date Type Department Care Team (Late st Contact Info) Description 08/02/2025 9:00 AM EDT Clinical Support [facility] Heart & Vascular [facility] [address] [facility] [address] [place] [id number] [place],[facility] [address] [place], [place] [id number] Health Maintenance Due Date Last Done Comments Advance Care Planning 1950 Hepatitis C Virus Screening 1950 DTaP/Tdap/Td Vaccines (1 - Tdap) 1969 Colonoscopy 12/01/1995 Pneumococcal Vaccines 50+ (1 of 1 - PCV) 2000 RSV Vaccine 50 years and old er and Patients (1 - Risk 50-74 years 1-dose series) 2000 Zoster (Shingles) Vaccine (1 of 2) 2000 DXA Bone Density (Females,Ag es 65 and older) 12/01/2015 Influenza Vaccine 12/18/2024 COVID-19 Vaccine ( - 2024-2 6 season) 2025 Hepatitis B Vaccines Aged Out No long er eligible based on patient's age to complete this topic Care Teams Safety Associate Relationship Specialty Start Date End Date Unknown Unknow Provider Address PCP - General 05/11/25
--- OUTSIDE RECORDS SUMMARY | 2025-05-18 11:33 | XMS_ITS | Patient Health Record ---
Author Organization [facility] [place] Address [address] [place] [address] Care Team Providers Care Lvn Name Role Phone Stevan Joshi Primary Care Provider Unayandy Brooklyn Jane Unavailable [phone] Allergies Allergen (clinical drug ingredient) Drug/Non Drug [...] Insured Coverage Start Date Coverage End Date [facility] [address] [place] [address] [id number] Justice Amos Self - patient is the insured Medicare [employer] [address] [place] [address] [id number] Justice Amos Self - patient is the insured Medical (General) History Medical History History ICD Code Back,Hip,and Knee pain Measles Mumps Chicken pox Surgical History Surgery Date(Month/Year) laser surgery-complications: detatched r mathew 2018
--- OUTSIDE RECORDS SUMMARY | 2025-05-18 11:33 | XMS_ITS ---
Author Name [facility] Organization Unknown Care Team Organization Name Specialty Phone Email Start Date End [facility] 05/11/2025
== END 2025-05-18 09:11 | disposition home or self-care (01) ==
LOC: HO.MRI 09:10
PROVIDERS: PCP Nurse Practitioner Family; Visit Provider Internal Medicine Endocrinology, Diabetes & Metabolism
DX: D35.2 Benign neoplasm of pituitary gland (principal)
CPT/HCPCS: 70553; A9585

== ENCOUNTER → 2025-05-18 09:28 | Outpatient (BNV) | payer MEDICARE, SELFPAY | PROVIDERS: PCP Nurse Practitioner Family; Visit Provider Radiology Diagnostic Radiology | DX: D35.2 Benign neoplasm of pituitary gland (principal); E23.6 Other disorders of pituitary gland | CPT/HCPCS: 70553 ==